=== PATIENT | male | born 1985 | race African-American/Black ===

== ENCOUNTER 2017-11-09 02:53 | Inpatient (IN) ==
[2017-11-09] MEDS ORDERED: Sod Chloride 0.9% Inj 1,000 ML IV.SIG ONE (03:21)
--- NOTE | 2017-11-09 03:29 | ED ---
HPI General Chief complaint: Sickle Cell Stated complaint: Sickle Cell Time Seen by Provider: 11/09/17 03:08 Source: patient Mode of arrival: ambulatory Limitations: no limitations History of Present Illness HPI narrative: Patient is a 32-year-old male with history of sickle cell disease , presents the emergency room with complaints of sickle cell crisis. Patient reports that 6 hours prior to arrival to the emergency room, he began to have back pain, patient reports that his shoulders as well as both arms are achy. Patient tried taking 2 doses of oxycodone as prescribed for her sickle cell crisis, patient reports no relief of symptoms with this. Patient reports that he currently follows with a primary care doctor in [place], he recently moved to [facility] about a month and a half ago, reports that he did follow-up with Dr. Lashay Salgado in the past. Patient denies any chest pain, reports that he is feeling short of breath. Patient with no fever or chills, patient with no other complaints. Patient reports that symptoms today are similar to his typical sickle cell crisis. Patient reports that he is about 2 sickle cell crisis per year Related Data Allergies Allergy/AdvReac Type Severity Reaction Status Date / Time No Known Allergies Allergy Verified 11/09/17 02:57 Review of Systems Except as stated in HPI: all other systems reviewed are negative PMFSH History History Provided By: Patient Medical History Medical History Gout (Acute) Sickle cell anemia (Acute) Surgical History Surgical History Hx of cholecystectomy (Acute) Social History Social History Substance History: No History of Abuse Second Hand Smoke Exposure: No Smoking Status: Never smoker How Often Do You Have a Drink Containing Alcohol: 2 to 4 times a month Recent Travel in [facility] within the Last 8 Weeks: No Recent Out of Country Travel within the Last 8 Weeks: No Exam Narrative Exam Narrative: GENERAL: moderate distress SKIN: Focused skin assessment warm/dry. HEAD: Atraumatic. Normocephalic. EYES: Pupils equal and round. No scleral icterus. No injection or drainage. ENT: No nasal bleeding or discharge. Mucous membranes pink and moist. NECK: Trachea midline. No JVD. CARDIOVASCULAR: tachycardia. No murmur appreciated. RESPIRATORY: No accessory muscle use. Clear to auscultation. Breath sounds equal bilaterally. GASTROINTESTINAL: Abdomen soft, non-tender, nondistended. Hepatic and splenic margins not palpable. MUSCULOSKELETAL: No obvious deformities. No clubbing. No cyanosis. No edema. NEUROLOGICAL: Awake and alert. No obvious cranial nerve deficits. Motor grossly within normal limits. Normal speech. PSYCHIATRIC: Appropriate mood and affect; insight and judgment normal. Course Initial Documented Vital Signs Temperature 99.1 F 11/09/17 02:57 Pulse Rate 118 H 11/09/17 02:57 Respiratory Rate 24 11/09/17 02:57 Blood Pressure 137/63 11/09/17 02:57 Pulse Oximetry 88 L 11/09/17 02:57 Last Documented Vital Signs Temperature 99.1 F 11/09/17 02:57 Pulse Rate 104 H 11/09/17 03:55 Respiratory Rate 24 11/09/17 02:57 Blood Pressure 137/63 11/09/17 02:57 Pulse Oximetry 98 11/09/17 04:42 Critical Care Time Critical Care Time: Yes Total Critical Care Time: 30 Attestation: Aggregate critical care time was 30 minutes. Time to perform other separately billable procedures was not included in the critical care time. My time did not include minutes spent treating any other patients simultaneously or on activities that did not directly contribute to the patient's treatment. The services I provided to this patient were to treat and/or prevent clinically significant deterioration that could result in: , decompensation, detierioation I provided critical care services requiring my management, as noted below: Chart data review, documentation time, medication orders and management, vital sign assessments/reviewing monitor data, ordering and reviewing lab tests, ordering and interpreting/reviewing x-rays and diagnostic studies, care of the patient and discussion of the patient with the admitting physicians. Medical Decision Making MDM Narrative Medical decision making narrative: During the course of the patients emergency department visit, the patients history, examination, and differential diagnosis were reviewed with the patient. The patient was placed on a privacy director with oximetry and frequent blood pressure monitoring. The patient had an IV access obtained and blood work sent for analysis. The patient was initially provided with 2 liters of IVF as well as IV dilaudid patient is tachycardic with a pulse ox of 88% - he was placed on oxygen The patients laboratory studies were reviewed and remarkable for wbc 31,000, patient tachycardic - lactate ordered, he has been pancultured, IV cefepime ordered Patient will require admission to hospital as he is suffering from an acute sickle cell crisis Case reviewed with Dr. Mckeon who accepts pt to service Differential Diagnosis Differential Diagnosis: sickle cell crisis Medical Records Medical records reviewed: Yes I reviewed the patient's medical records. Lab Data Result diagrams: 11/09/17 03:45 11/09/17 03:45 Lab Results 11/09/17 11/09/17 Range/Units 03:45 03:45 WBC 31.0 H (4.0-11.0) th/mm3 RBC 2.76 L (4.50-5.90) mil/mm3 Hgb 8.0 L (13.0-17.0) gm/dL Hct 22.1 L (39.0-51.0) % MCV 79.8 L (80.0-100.0) fL MCH 29.0 (27.0-34.0) pg MCHC 36.3 H (32.0-36.0) % RDW 24.6 H (11.6-17.2) % Plt Count 396 (150-450) th/mm3 MPV 8.6 (7.0-11.0) fL Prelim Diff (Auto) Slide review pending Neut % (Auto) 59.1 (16.0-70.0) % Lymph % (Auto) 27.8 (9.0-44.0) % [place] % (Auto) 7.9 (0.0-8.0) % Eos % (Auto) 3.7 (0.0-4.0) % Baso % (Auto) 1.5 (0.0-2.0) % Neut # (Auto) 18.4 H (1.8-7.7) th/mm3 Lymph # (Auto) 8.6 H (1.0-4.8) th/mm3 [place] # (Auto) 2.5 H (0.0-0.9) th/mm3 Eos # (Auto) 1.1 H (0.0-0.4) th/mm3 Baso # (Auto) 0.5 H (0.0-0.2) th/mm3 Differential Comment . Retic Count 17.0 H (0.4-3.0) % Absolute Retic 469.6 H (20.0-150.0) mil/L Sodium 140 (136-145) meq/L Potassium 4.2 (3.5-5.1) meq/L Chloride 109 H (98-107) meq/L Carbon Dioxide 24.1 (21.0-32.0) meq/L Anion Gap 7 (5-15) meq/L BUN 41 H (7-18) mg/dL Creatinine 1.51 H (0.60-1.30) mg/dL Estimated GFR 53 L (>89) mL/min Random Glucose 102 (74-106) mg/dL Calcium 8.9 (8.5-10.1) mg/dL Total Bilirubin 10.1 H (0.2-1.0) mg/dL AST 63 H (15-37) U/L ALT 37 (12-78) U/L Alkaline Phosphatase 244 H (45-117) U/L Total Protein 8.1 (6.4-8.2) g/dL Albumin 4.2 (3.4-5.0) g/dL Imaging Data Attestation: I personally reviewed and interpreted this imaging study as follows : Radiologist's impression: Chest X-Ray 11/09/17 03:20 CONCLUSION: 1. Low lung volumes. Mild basilar pulmonary opacity may represent vascular crowding, atelectasis, or mild pulmonary edema. 2. Mildly enlarged cardiac silhouette. Discharge Plan Discharge Disposition Patient Disposition: 30 Still Patient Discharge Details Diagnosis: Acute sickle cell crisis Physicians Team ED Provider: Yue Viera Primary Care Provider: Primary Care Emily,No Status ED Status: With Doctor
[2017-11-09] MEDS ORDERED: Sod Chloride 0.9% Inj 1,000 ML IV.SIG SCH (03:30)
[2017-11-09] MEDS ORDERED: HYDROmorphone PF Inj 2 MG/ML Vial IV.PUSH ONE ×2 (03:38→04:49)
[2017-11-09] MEDS: HYDROmorphone PF Inj 1 MG/ML Ampul IV.PUSH ONE ×2 (03:51→03:53)
[2017-11-09 04:08] LABS: Baso # (Auto) 0.5 th/mm3 (0.0-0.2); Baso % (Auto) 1.5 % (0.0-2.0); Eos # (Auto) 1.1 th/mm3 (0.0-0.4); Eos % (Auto) 3.7 % (0.0-4.0); Hematocrit 22.1 % (39.0-51.0); Lymph # (Auto) 8.6 th/mm3 (1.0-4.8); Lymph % (Auto) 27.8 % (9.0-44.0); Mean Corpuscular Volume 79.8 fL (80.0-100.0); Mean Platelet Volume 8.6 fL (7.0-11.0); Mono # (Auto) 2.5 th/mm3 (0.0-0.9); Mono % (Auto) 7.9 % (0.0-8.0); Neut # (Auto) 18.4 th/mm3 (1.8-7.7); Neut % (Auto) 59.1 % (16.0-70.0); Platelet Count 396 th/mm3 (150-450); Red Blood Count 2.76 mil/mm3 (4.50-5.90); Red Cell Distribution Width 24.6 % (11.6-17.2)
[2017-11-09 04:15] LABS: Mean Corpuscular HGB Conc 36.3 % (32.0-36.0)
[2017-11-09 04:20] LABS: Alanine Aminotransferase 37 U/L (12-78); Albumin 4.2 g/dL (3.4-5.0); Anion Gap 7 meq/L (5-15); Aspartate Aminotransferase 63 U/L (15-37); Blood Urea Nitrogen 41 mg/dL (7-18); Calcium 8.9 mg/dL (8.5-10.1); Carbon Dioxide 24.1 meq/L (21.0-32.0); Chloride 109 meq/L (98-107); Glomerular Filtration Rate 53 mL/min (>89); Glucose,Random 102 mg/dL (74-106); Potassium 4.2 meq/L (3.5-5.1); Sodium 140 meq/L (136-145)
[2017-11-09 04:22] LABS: Alkaline Phosphatase 244 U/L (45-117); Total Protein 8.1 g/dL (6.4-8.2)
--- NOTE | 2017-11-09 04:24 | XR ---
EXAM DATE: 11/09/2017 4:12 AM EDT AGE/SEX: 32 years / Male INDICATIONS: Shortness of breath. CLINICAL DATA: This is the patient's initial encounter. Patient reports that signs and symptoms have been present for 1 day and indicates a pain score of 0/10. MEDICAL/SURGICAL HISTORY: Sickle Cell disease. None. COMPARISON: No prior exams available for comparison. FINDINGS: Single AP view of the chest. Lung volumes are low. Mild hazy opacity at the lung bases. No evidence o f pleural effusion or pneumothorax. Cardiac silhouette is mildly prominent. CONCLUSION: 1. Low lung volumes. Mild basilar pulmonary opacity may represent vascular crowding, atelectasis, or mild pulmonary edema. 2. Mildly enlarged cardiac silhouette. Electronically signed by: Chidi Perry MD 11/09/2017 4:23 AM EDT
[2017-11-09] MEDS ORDERED: Acetaminophen 325 MG Tablet PO ONE (04:49)
[2017-11-09] MEDS ORDERED: HYDROmorphone PF Inj 2 MG/ML Vial IV.PUSH PRN (05:03)
[2017-11-09] MEDS ORDERED: Temazepam 15 MG Capsule PO PRN (05:04)
[2017-11-09] MEDS ORDERED: Bisacodyl 10 MG Supp RECTAL PRN (05:04)
[2017-11-09] MEDS ORDERED: Acetaminophen 325 MG Tablet PO PRN (05:04)
[2017-11-09 05:08] LABS: Eosinophils 3 % (0-4); Lymphocytes 26 % (9-44); Monocytes 6 % (0-8); Myelocytes 1 % (0-0); Tallied Nucleated RBC 5 (0-0)
[2017-11-09 05:11] LABS: Pappenheimer Bodies Present; Platelet Estimate Normal (Normal); Sickle Cells 1+; Target Cells 1+
[2017-11-09 05:12] LABS: Polychromasia 9.5 % (0.0-1.9)
[2017-11-09 05:13] LABS: Platelet Morphology Normal (Normal)
[2017-11-09 05:58] LABS: Bilirubin,Urine Negative (Negative); Clarity,Urine Clear (Clear); Color,Urine Yellow (Yellw/Straw); Glucose,Urine (UA) Negative (Negative); Leukocyte Esterase,Urine Negative (Negative); Mucus,Urine Few /lpf (Occasional); Nitrite,Urine Negative (Negative); Specific Gravity,Urine 1.006 (1.002-1.035)
[2017-11-09] MEDS: Sod Chloride 0.9% Inj 1,000 ML IV.CONT SCH ×3 (08:38→22:38)
[2017-11-09] MEDS: Senna/Docusate Sodium 8.6/50 MG Tablet PO SCH ×2 (08:40→21:07)
[2017-11-09] MEDS: Folic Acid 1 MG Tablet PO SCH (08:40)
[2017-11-09] MEDS: HYDROmorphone PF Inj 2 MG/ML Vial IV.PUSH PRN ×6 (08:43→21:06)
[2017-11-09 14:03] LABS: Amphetamine Screen,Urine Neg (Neg); Barbiturate Screen,Urine Neg (Neg); Cannabinoid Screen,Urine Neg (Neg); Cocaine Screen,Urine Neg (Neg)
[2017-11-09 14:05] LABS: Opiate Screen,Urine Neg (Neg)
[2017-11-09] MEDS: Azithromycin Inj 500 MG in Sodium Chlor 0.9% Inj 250 ML IV.SIG SCH (15:30)
--- NOTE | 2017-11-09 16:21 | P.HPIM ---
History of Present Illness Primary Care Physician: No Primary Care Physician History of Present Illness: 32-year-old male with a history of sickle cell anemia, gout who presents with a 1 day history of constant sharp pain in back, bilateral shoulders, bilateral legs. He says he began having fevers yesterday around 6 PM. Denies any sore throat, denies any cough. He does report moderate shortness of breath which has improved since admission. Reports pain continues, however has not worsened. Inpatient Certification: I certify that the inpatient services were ordered in accordance with Medicare regulations governing the order. This includes certification that hospital inpatient services are reasonable and necessary and in the case of services not specified as inpatient-only under 42 CFR 419.22(n), that they are appropriately provided as inpatient services in accordance to with the 2-midnight benchmark under 43 CFR 412.3(e) Estimated Total Length of Stay (Days): 2 Plans for Post Hospital Care: Not yet determined Review of Systems All other systems reviewed negative except as stated in [facility] - History History Provided By: Patient - Medical History Medical History: Medical History (Last Updated 11/09/17 @ 03:55 by Truman Oliva RN) Gout Sickle cell anemia - Surgical History Surgical History: Surgical History (Last Reviewed 11/09/17 @ 03:27 by Yue Viera) Hx of cholecystectomy - Family History Family History: Family History (Last Updated 11/09/17 @ 16:12 by Subhash Hillman MD) Father Gout - Tobacco History Second Hand Smoke Exposure: No Smoking Status: Never smoker - Alcohol History How Often Do You Have a Drink Containing Alcohol: 2 to 4 times a month - Substance Use History Substance History: No History of Abuse - Travel History Recent Travel in the [place] Within the Last 8 Weeks: No Recent Travel Out of the Country Within the Last 8 Weeks: No - Immunization History Tetanus Immunization: Unsure Hx Influenza Vaccine This Season: No Medications and Allergies Active Medications: Active Medications Acetaminophen (Tylenol) 650 mg PO Q4H PRN PRN Reason: Temp > 100.4 Al Hydroxide/Mg Hydroxide (Milk Of Magnpaul Liq) 30 ml PO Q12H PRN PRN Reason: Mild Constipation Albuterol (Duoneb Neb (Prn)) 1 ampul NEB Q2HR NEB PRN PRN Reason: SHORTNESS OF BREATH/WHEEZING Albuterol (Duoneb Neb (Leia)) 1 ampul NEB Q6HR NEB [facility] Bisacodyl (Dulcolax Supp) 10 mg RECTAL DAILY PRN PRN Reason: SEVERE CONSITIPATION Diphenhydramine HCl (Benadryl Inj) 25 mg IV.PUSH Q6H PRN PRN Reason: ITCHING Folic Acid (Folic Acid) 1 mg PO DAILY [facility] Last Admin: 11/09/17 08:40 Dose: 1 mg Hydromorphone HCl (Dilaudid Pf Inj) 1 mg IV.PUSH Q2H PRN PRN Reason: PAIN 3-5 Hydromorphone HCl (Dilaudid Pf Inj) 2 mg IV.PUSH Q2H PRN PRN Reason: PAIN 6-10 Last Admin: 11/09/17 15:19 Dose: 2 mg Sodium Chloride (Ns Inj) 1,000 mls @ 150 mls/hr IV.CONT .Q6H40M [facility] Last Admin: 11/09/17 15:20 Dose: 150 mls/hr Azithromycin 500 mg/ Sodium (Chloride) 250 mls @ 250 mls/hr IV.SIG Q24H [facility] Last Admin: 11/09/17 15:30 Dose: 250 mls/hr Cefepime HCl 2,000 mg/ Sodium (Chloride) 100 mls @ 200 mls/hr IV.SIG Q12H [facility] Lactulose (Lactulose Liq) 30 ml PO DAILY PRN PRN Reason: SEVERE CONSITIPATION Ondansetron HCl (Zofran Inj) 4 mg IV.PUSH Q6H PRN PRN Reason: NAUSEA OR VOMITING Senna/Docusate Sodium (Latrice-Colace) 1 tab PO BID [facility] Last Admin: 11/09/17 08:40 Dose: Not Given Sennosides (Senokot) 17.2 mg PO Q12H PRN PRN Reason: Moderate Constipation Sodium Chloride (Ns Flush) 2 ml IV.FLUSH PRN PRN PRN Reason: FLUSH AFTER USING IV ACCESS Temazepam (Restoril) 15 mg PO HS PRN PRN Reason: INSOMNIA Allergies Allergy/AdvReac Type Severity Reaction Status Date / Time No Known Allergies Allergy Verified 11/09/17 02:57 Exam Vital signs: Vital Signs 11/09/17 02:57 11/09/17 03:55 11/09/17 04:42 Temperature 99.1 F Pulse Rate 118 H 104 H Respiratory Rate 24 Blood Pressure 137/63 Pulse Oximetry 88 L 97 98 11/09/17 05:15 11/09/17 05:26 11/09/17 05:27 Temperature 100.2 F H Pulse Rate 95 H 95 H Respiratory Rate 18 20 Blood Pressure 129/64 Pulse Oximetry 96 11/09/17 06:00 11/09/17 06:17 11/09/17 07:42 Temperature 100.1 F H Pulse Rate 80 89 81 Respiratory Rate 17 Blood Pressure 112/58 L Pulse Oximetry 97 11/09/17 08:00 11/09/17 09:00 11/09/17 10:00 Temperature 99.9 F H Pulse Rate 84 86 84 Respiratory Rate 18 Blood Pressure 106/63 Pulse Oximetry 99 11/09/17 11:00 11/09/17 12:00 11/09/17 13:00 Temperature 98.6 F Pulse Rate 86 82 82 Respiratory Rate 18 Blood Pressure 104/62 Pulse Oximetry 95 11/09/17 14:00 11/09/17 15:00 Temperature Pulse Rate 88 90 Respiratory Rate Blood Pressure Pulse Oximetry Intake & Output 11/08/17 11/09/17 11/09/17 18:59 06:59 18:59 Intake Total 1000 / 1000 Balance 1000 / 1000 Weight 63 kg Intake: IV 1000 / 1000 NS Inj 1,000 ML @ 150 mls/hr IV 1000 / 1000 .CONT .Q6H40M [facility] Rx#:[id number] Narrative: GENERAL: Patient sitting up in bed. appears comfortable. SKIN: Warm and dry. HEAD: Atraumatic. Normocephalic. EYES: Pupils equal and round. No scleral icterus. No injection or drainage. ENT: No nasal bleeding or discharge. Mucous membranes pink and moist. NECK: Trachea midline. No JVD. CARDIOVASCULAR: Regular rate and rhythm. RESPIRATORY: No accessory muscle use. Clear to auscultation. Breath sounds equal bilaterally. GASTROINTESTINAL: Abdomen soft, non-tender, nondistended. Hepatic and splenic margins not palpable. MUSCULOSKELETAL: Extremities without clubbing, cyanosis, or edema. No obvious deformities. NEUROLOGICAL: Awake and alert. No obvious cranial nerve deficits. Motor grossly within normal limits. Five out of 5 muscle strength in the arms and legs. Normal speech. PSYCHIATRIC: Appropriate mood and affect; insight and judgment normal. Results - Labs CBC & Chem 7: 11/09/17 03:45 07/22/18 03:45 Labs: Short CBC 11/09/17 Range/Units 03:45 WBC 31.0 H (4.0-11.0) th/mm3 Hgb 8.0 L (13.0-17.0) gm/dL Hct 22.1 L (39.0-51.0) % Plt Count 396 (150-450) th/mm3 BMP 11/09/17 03:45 Sodium 140 Potassium 4.2 Chloride 109 H Carbon Dioxide 24.1 BUN 41 H Creatinine 1.51 H Calcium 8.9 Liver Function 11/09/17 Range/Units 03:45 Total Bilirubin 10.1 H (0.2-1.0) mg/dL AST 63 H (15-37) U/L ALT 37 (12-78) U/L Alkaline Phosphatase 244 H (45-117) U/L Albumin 4.2 (3.4-5.0) g/dL Urine 11/09/17 Range/Units 05:32 Urine Color Yellow (Yellw/Straw) Urine Clarity Clear (Clear) Urine pH 5.0 (5.0-8.5) Ur Specific [place] 1.006 (1.002-1.035) Urine Protein 100 H (Neg-Trace) mg/dL Urine Glucose (UA) Negative (Negative) mg/dL - Imaging Impressions Chest X-Ray 11/09/17 03:20 CONCLUSION: 1. Low lung volumes. Mild basilar pulmonary opacity may represent vascular crowding, atelectasis, or mild pulmonary edema. 2. Mildly enlarged cardiac silhouette. Caprini VTE Risk Assessment Caprini VTE Risk Assessment: No/Low Risk (score <= 1) Caprini Risk Assessment Model: Point Value = 1 Point Value = 2 Point Value = 3 Point Value = 5 Age 41-60 Minor surgery BMI > 25 kg/m2 Swollen legs Varicose veins or History of unexplained or recurrent spontaneous Oral contraceptives or hormone replacement Sepsis (< 1 month) Serious lung disease, including pneumonia (< 1 month) Abnormal pulmonary function Acute myocardial infarction Congestive heart failure (< 1 month) History of inflammatory bowel disease Medical patient at bed rest Age 61-74 Arthroscopic surgery Major open surgery (> 45 min) Laparoscopic surgery (> 45 min) Malignancy Confined to bed (> 72 hours) Immobilizing plaster cast Central venous access Age >= 75 History of VTE Family history of VTE Factor V Leiden Prothrombin [id number] Lupus anticoagulant Anticardiolipin antibodies Elevated serum homocysteine Heparin-induced thrombocytopenia Other congenital or acquired thrombophilia Stroke (< 1 month) Elective arthroplasty Hip, pelvis, or leg fracture Acute spinal cord injury (< 1 month) Prophylaxis Regimen: Total Risk Factor Score Risk Level Prophylaxis Regimen 0-1 Low Early ambulation 2 Moderate Order ONE of the following: *Sequential Compression Device (SCD) *Heparin 5000 units SQ BID 3-4 Higher Order ONE of the following medications: *Heparin 5000 units SQ TID *Enoxaparin/Lovenox 40 mg SQ daily (WT < 150 kg, CrCl > 30 mL/min) *Enoxaparin/Lovenox 30 mg SQ daily (WT < 150 kg, CrCl > 10-29 mL/min) *Enoxaparin/Lovenox 30 mg SQ BID (WT < 150 kg, CrCl > 30 mL/min) AND/OR *Sequential Compression Device (SCD) 5 or more Highest Order ONE of the following medications: *Heparin 5000 units SQ TID (Preferred with Epidurals) *Enoxaparin/Lovenox 40 mg SQ daily (WT < 150 kg, CrCl > 30 mL/min) *Enoxaparin/Lovenox 30 mg SQ daily (WT < 150 kg, CrCl > 10-29 mL/min) *Enoxaparin/Lovenox 30 mg SQ BID (WT < 150 kg, CrCl > 30 mL/min) AND *Sequential Compression Device (SCD) Assessment and Plan - Plan //Sepsis on admission //Hypoxemic respiratory failure = Leukocytosis of 31, tachypnea, hypoxemia with pulse oximetry 88% on room air, currently requiring 5 L nasal cannula. Pneumonia on chest x-ray IV fluids. Broad-spectrum antibiotics for pneumonia. Continue to monitor. 3 per discussion with patient, will consult Dr. Salgado,. //Sickle cell pain crisis With pain and back, bilateral legs. Denies chest pain. = We will check CK Narcotics as needed. //Impaired renal function. Creatinine 1.5. Continue IV fluids. Continue to monitor.
[2017-11-10] MEDS: HYDROmorphone PF Inj 2 MG/ML Vial IV.PUSH PRN ×10 (00:21→22:26)
[2017-11-10 04:23] LABS: Baso # (Auto) 0.2 th/mm3 (0.0-0.2); Baso % (Auto) 1.5 % (0.0-2.0); Eos # (Auto) 0.9 th/mm3 (0.0-0.4); Eos % (Auto) 6.1 % (0.0-4.0); Lymph # (Auto) 4.3 th/mm3 (1.0-4.8); Lymph % (Auto) 28.2 % (9.0-44.0); Mean Corpuscular Hemoglobin 30.1 pg (27.0-34.0); Mean Corpuscular Volume 82.1 fL (80.0-100.0); Mean Platelet Volume 8.6 fL (7.0-11.0); Mono # (Auto) 1.8 th/mm3 (0.0-0.9); Mono % (Auto) 11.6 % (0.0-8.0); Neut % (Auto) 52.6 % (16.0-70.0); Platelet Count 327 th/mm3 (150-450); Red Cell Distribution Width 24.2 % (11.6-17.2); White Blood Count 15.2 th/mm3 (4.0-11.0)
[2017-11-10 04:29] LABS: Mean Corpuscular HGB Conc 36.6 % (32.0-36.0)
[2017-11-10 04:33] LABS: Hemoglobin 6.9 gm/dL (13.0-17.0)
[2017-11-10 04:34] LABS: Hematocrit 18.9 % (39.0-51.0)
[2017-11-10 04:40] LABS: Alanine Aminotransferase 32 U/L (12-78); Albumin 3.6 g/dL (3.4-5.0); Alkaline Phosphatase 208 U/L (45-117); Anion Gap 5 meq/L (5-15); Aspartate Aminotransferase 55 U/L (15-37); Blood Urea Nitrogen 23 mg/dL (7-18); Calcium 8.5 mg/dL (8.5-10.1); Carbon Dioxide 25.2 meq/L (21.0-32.0); Chloride 115 meq/L (98-107); Glomerular Filtration Rate 87 mL/min (>89); Glucose,Random 97 mg/dL (74-106); Potassium 5.2 meq/L (3.5-5.1); Sodium 145 meq/L (136-145)
[2017-11-10 06:02] LABS: Eosinophils 10 % (0-4); Howell-Jolly Bodies Present; Lymphocytes 24 % (9-44); Monocytes 10 % (0-8); Pappenheimer Bodies Present; Sickle Cells 2+; Tallied Nucleated RBC 4 (0-0)
[2017-11-10 06:03] LABS: Platelet Estimate Normal (Normal)
[2017-11-10 06:04] LABS: Polychromasia 2.3 % (0.0-1.9)
[2017-11-10] MEDS: Sod Chloride 0.9% Inj 1,000 ML IV.CONT SCH ×4 (07:07→20:20)
--- NOTE | 2017-11-10 08:29 | P.PNIM ---
Subjective Interval history: Patient says he is feeling a little better than yesterday. Denies any chest pain. Denies shortness of breath. Reports pain is slightly improved. Physical Exam Vital signs: Vital Signs 11/09/17 09:00 11/09/17 10:00 11/09/17 11:00 Temperature Pulse Rate 86 84 86 Respiratory Rate Blood Pressure Pulse Oximetry 11/09/17 12:00 11/09/17 13:00 11/09/17 14:00 Temperature 98.6 F Pulse Rate 82 82 88 Respiratory Rate 18 Blood Pressure 104/62 Pulse Oximetry 95 11/09/17 15:00 11/09/17 16:00 11/09/17 16:06 Temperature 99.8 F H Pulse Rate 90 88 Respiratory Rate 18 Blood Pressure 112/56 L Pulse Oximetry 96 95 11/09/17 17:00 11/09/17 18:00 11/09/17 19:00 Temperature Pulse Rate 96 H 92 H 64 Respiratory Rate Blood Pressure Pulse Oximetry 11/09/17 20:00 11/09/17 21:00 11/09/17 22:00 Temperature 97.4 F L Pulse Rate 64 70 67 Respiratory Rate 16 Blood Pressure 106/58 L Pulse Oximetry 92 L 11/09/17 23:00 11/10/17 00:00 11/10/17 00:02 Temperature 98.2 F Pulse Rate 68 62 62 Respiratory Rate 18 Blood Pressure 131/69 Pulse Oximetry 98 11/10/17 01:00 11/10/17 02:00 11/10/17 03:00 Temperature Pulse Rate 85 88 79 Respiratory Rate Blood Pressure Pulse Oximetry 11/10/17 03:28 11/10/17 04:00 11/10/17 05:00 Temperature 99.0 F Pulse Rate 81 78 82 Respiratory Rate 16 16 Blood Pressure 135/62 Pulse Oximetry 98 11/10/17 06:00 11/10/17 08:23 Temperature Pulse Rate 79 Respiratory Rate 16 Blood Pressure Pulse Oximetry Intake & Output 11/09/17 11/10/17 11/10/17 18:59 06:59 18:59 Intake Total 2049 1240 / 1240 3450 / 3450 Output Total 5 / 2225 2024 Balance -175 / -175 -785 / -785 3450 / 3450 Weight 65 kg Intake: IV 1100 / 1100 1000 / 1000 3450 / 3450 NS Inj 1,000 ML @ 150 mls/hr IV 1000 / 1000 1000 / 1000 1000 / 1000 .CONT .Q6H40M [facility] Rx#:[id number] Azithromycin Inj 500 MG In NS 250 / 250 Inj 250 ML @ 250 mls/hr IV.SIG Q24H [facility] Rx#:[id number] Maxipime Inj 2,000 MG In NS Inj 100 / 100 100 / 100 100 ML @ 200 mls/hr IV.SIG Q12H [facility] Rx#:[id number] Oral 950 / 950 240 / 240 Output: Urine 2225 / 2225 2024 / 2024 Other: # Bowel Movements 0 Narrative: GENERAL: Patient sitting up in bed. Appears comfortable. Alert and oriented 3. SKIN: Warm and dry. HEAD: Normocephalic. EYES: No scleral icterus. No injection or drainage. NECK: Supple, trachea midline. No JVD. CARDIOVASCULAR: Regular rate and rhythm without murmurs, gallops, or rubs. RESPIRATORY: Breath sounds equal bilaterally. No accessory muscle use. GASTROINTESTINAL: Abdomen soft, non-tender, nondistended. MUSCULOSKELETAL: No cyanosis, or edema. BACK: Nontender without obvious deformity. No CVA tenderness. Results - Labs CBC & Chem 7: 11/10/17 03:38 11/10/17 03:38 Laboratory Results - last 24 hr 11/09/17 11/09/17 11/10/17 03:45 05:32 03:38 WBC 15.2 H D RBC 2.30 L Hgb 6.9 L* Hct 18.9 L* MCV 82.1 MCH 30.1 MCHC 36.6 H RDW 24.2 H Plt Count 327 MPV 8.6 Prelim Diff (Auto) Slide review pending Neut % (Auto) 52.6 Lymph % (Auto) 28.2 [place] % (Auto) 11.6 H Eos % (Auto) 6.1 H Baso % (Auto) 1.5 Neut # (Auto) 8.0 H Lymph # (Auto) 4.3 [place] # (Auto) 1.8 H Eos # (Auto) 0.9 H Baso # (Auto) 0.2 WBC Differential Manual diff final Seg Neuts % (Manual) 53 Band Neuts % (Manual) 3 Lymphocytes % (Manual) 24 Monocytes % (Manual) 10 H Eosinophils % (Manual) 10 H Abs Neuts (Manual) 8.5 H Nucleated RBCs/100 WBC 4 H Differential Comment . Platelet Estimate Normal Platelet Morphology Enlarged H Polychromasia 2.3 H Pappenheimer Bodies Present H Sickle Cells 2+ H [place] Bodies Present H Sodium Potassium Chloride Carbon Dioxide Anion Gap BUN Creatinine Estimated GFR Random Glucose Calcium Total Bilirubin AST ALT Alkaline Phosphatase Total Creatine Kinase 82 Total Protein Albumin Urine Opiates Screen Neg Ur Barbiturates Screen Neg Ur Amphetamines Screen Neg U Benzodiazepines Scrn Neg Urine Cocaine Screen Neg U Cannabinoids Screen Neg 11/10/17 03:38 WBC RBC Hgb Hct MCV MCH MCHC RDW Plt Count MPV Prelim Diff (Auto) Neut % (Auto) Lymph % (Auto) [place] % (Auto) Eos % (Auto) Baso % (Auto) Neut # (Auto) Lymph # (Auto) [place] # (Auto) Eos # (Auto) Baso # (Auto) WBC Differential Seg Neuts % (Manual) Band Neuts % (Manual) Lymphocytes % (Manual) Monocytes % (Manual) Eosinophils % (Manual) Abs Neuts (Manual) Nucleated RBCs/100 WBC Differential Comment Platelet Estimate Platelet Morphology Polychromasia Pappenheimer Bodies Sickle Cells [place] Bodies Sodium 145 Potassium 5.2 H D Chloride 115 H Carbon Dioxide 25.2 Anion Gap 5 BUN 23 H Creatinine 0.99 Estimated GFR 87 L Random Glucose 97 Calcium 8.5 Total Bilirubin 5.9 H AST 55 H ALT 32 Alkaline Phosphatase 208 H Total Creatine Kinase Total Protein 7.0 D Albumin 3.6 D Urine Opiates Screen Ur Barbiturates Screen Ur Amphetamines Screen U Benzodiazepines Scrn Urine Cocaine Screen U Cannabinoids Screen Assessment and Plan - Plan //Sepsis on admission //Hypoxemic respiratory failure = Leukocytosis of 31, tachypnea, hypoxemia with pulse oximetry 88% on room air, currently requiring 5 L nasal cannula. Pneumonia on chest x-ray IV fluids. Broad-spectrum antibiotics for pneumonia. Continue to monitor. 3 per discussion with patient, will consult Dr. Salgado,. = 11/10. White blood cell count improving. Continue broad-spectrum antibiotics. //Sickle cell pain crisis With pain and back, bilateral legs. Denies chest pain. = We will check CK Narcotics as needed. = Anemia to be replaced as below. Continue oxygen. Continue to monitor //Acute on chronic anemia Hemoglobin 6.9 this morning. Bilirubin appears to be decreasing however. = We will transfuse 2 units. Hematology consult. //Impaired renal function. Creatinine 1.5. Continue IV fluids. Continue to monitor. Discharge Planning: Discharge pain is controlled, and when cleared by hematology.
[2017-11-10] MEDS: Folic Acid 1 MG Tablet PO SCH (08:53)
[2017-11-10] MEDS: Senna/Docusate Sodium 8.6/50 MG Tablet PO SCH ×2 (08:53→20:20)
[2017-11-10] MEDS ORDERED: Sodium Chlor 0.9% Inj 250 ML IV.SIG SCH (09:00)
[2017-11-10] MEDS: Azithromycin Inj 500 MG in Sodium Chlor 0.9% Inj 250 ML IV.SIG SCH (15:11)
--- NOTE | 2017-11-10 19:48 | MB ---
cc: Lashay Salgado MD,Subhash English MD DATE: 11/10/2017 REFERRING PHYSICIAN: Subhash Hillman CHIEF COMPLAINT: Dr. Hillman requests a consultation for Mr. Vargas regarding sickle cell disease. HISTORY OF PRESENT ILLNESS: Mr. Vargas is a 32-year-old man originally from [place]. He has a [place] citizenship and, therefore, I have changed his name. I cannot find his previous records at our [facility] or [facility]. He is a well known patient to me with a history of sickle cell disease and exacerbations of priapism. He was on Viagra for treatment of his priapism, which unfortunately precipitated sickle cell disease. He has made some observation through the years, since 2010, that his hydroxyurea precipitates his priapism. He has been under the care of his physicians in [place] and [facility]. He came back to the [place] in 2014. He was in [place] and was treated at [facility] there. He has returned to finish his studies at [employer]. He was doing well until precipitation of his sickle cell symptoms requiring him to come into the hospital. He reports having severe back pain and shoulder pain. He has required transfusions periodically once or twice a year. He has infrequent hospitalization. He does not have pains in between. He denies any precipitating event. His studies are going well. He denies any fevers, chills or night sweats. He denies any recent exacerbation of his priapism. After stopping his hydroxyurea dose, events have remitted. PAST MEDICAL HISTORY: Sickle cell disease, gout, chronic anemia, priapism. PAST SURGICAL HISTORY: Cholecystectomy. SOCIAL HISTORY: Denies any tobacco, alcohol or illicit drug use. He is a student at [employer]. FAMILY HISTORY: Significant for family history of sickle trait. No family history of cancer. PHYSICAL EXAMINATION: VITAL SIGNS: Temperature 98.7, heart rate 82, respiratory rate 16, blood pressure 113/58, saturation 97%. GENERAL: Mr. Vargas is a slender, well-developed, well mannered man, with no acute distress. HEENT: His pupils are round, reactive to light and accommodation. Oropharynx is clear. NECK: Supple. LUNGS: Clear to auscultation. CARDIOVASCULAR: Reveals normal rate and rhythm. ABDOMEN: Benign. LOWER EXTREMITY: With good pulses. There is mild swelling in the dorsum of the left foot. R knee effusion. SKIN: He is jaundiced with bilirubin of 5.9. LABORATORY DATA: White blood cell count of 15.2, hemoglobin 6.9, platelet count 327. Reticulocyte count is elevated. Normal sodium. Potassium is slightly increased, BUN of 23, creatinine 0.99, bilirubin 5.9, which is decreased from his admission. ASSESSMENT AND PLAN: Mr. Vargas is a 32-year-old man with history of sickle cell disease and infrequent hospitalizations for his sickle cell. He is off hydroxyurea, as he observed the Hydrea precipitates his priapism. He is tolerating his blood transfusion well. I concur with the primary team for transfusion in light of his severe decrease in hemoglobin of 6.9. We will continue to monitor his blood counts. He has a good reticulocytosis. I anticipate that his symptoms would improve. P.r.n. pain medication is ordered. Supportive care with hydration, oxygen is provided. He will need followup on an outpatient basis. We will contact IT to help merge his records from previous. Mr. Vargas's questions were answered to his satisfaction. MD ANALI Flaherty/AMBROCIO , 07:12 PM , 07:46 PM KATHY
--- NOTE | 2017-11-10 21:20 | P.PN ---
Subjective Interval history: F/U [facility] Physical Exam Vital signs: Vital Signs 11/09/17 22:00 11/09/17 23:00 11/10/17 00:00 Temperature 98.2 F Pulse Rate 67 68 62 Respiratory Rate 18 Blood Pressure 131/69 Pulse Oximetry 98 11/10/17 00:02 11/10/17 01:00 11/10/17 02:00 Temperature Pulse Rate 62 85 88 Respiratory Rate Blood Pressure Pulse Oximetry 11/10/17 03:00 11/10/17 03:28 11/10/17 04:00 Temperature 99.0 F Pulse Rate 79 81 78 Respiratory Rate 16 16 Blood Pressure 135/62 Pulse Oximetry 98 11/10/17 05:00 11/10/17 06:00 11/10/17 08:00 Temperature 98.0 F Pulse Rate 82 79 72 Respiratory Rate 16 Blood Pressure 118/58 L Pulse Oximetry 93 L 11/10/17 08:23 11/10/17 09:00 11/10/17 09:15 Temperature Pulse Rate 84 77 Respiratory Rate 16 18 Blood Pressure Pulse Oximetry 93 L 11/10/17 09:45 11/10/17 10:40 11/10/17 10:42 Temperature 99.5 F Pulse Rate 74 78 Respiratory Rate 16 16 Blood Pressure 132/67 Pulse Oximetry 95 11/10/17 12:00 11/10/17 12:08 11/10/17 12:12 Temperature 98.6 F 98.5 F Pulse Rate 79 78 84 Respiratory Rate 16 16 Blood Pressure 121/64 120/62 Pulse Oximetry 93 L 93 L 11/10/17 12:29 11/10/17 13:00 11/10/17 13:52 Temperature Pulse Rate 81 75 Respiratory Rate 16 Blood Pressure Pulse Oximetry 11/10/17 14:39 11/10/17 14:44 11/10/17 15:32 Temperature 99.2 F Pulse Rate 77 94 H Respiratory Rate 16 16 Blood Pressure 122/66 Pulse Oximetry 96 11/10/17 16:49 11/10/17 16:50 11/10/17 17:18 Temperature 98.7 F Pulse Rate 90 82 Respiratory Rate 16 16 Blood Pressure 113/58 L Pulse Oximetry 97 11/10/17 17:30 11/10/17 17:40 11/10/17 20:16 Temperature 98.6 F Pulse Rate 79 81 86 Respiratory Rate 16 16 Blood Pressure 108/55 L Pulse Oximetry 93 L Intake & Output 11/10/17 11/10/17 11/11/17 06:59 18:59 06:59 Intake Total 1240 / 1240 5640 / 5640 1000 / 1000 Output Total 2024 2800 / 2800 Balance -785 / -785 2840 / 2840 1000 / 1000 Weight 65 kg Intake: IV 1000 / 1000 4800 / 4800 1000 / 1000 NS Inj 1,000 ML @ 150 mls/hr IV 1000 / 1000 2000 / 2000 1000 / 1000 .CONT .Q6H40M EMILIANO Rx#:[id number] Azithromycin Inj 500 MG In NS 500 / 500 Inj 250 ML @ 250 mls/hr IV.SIG Q24H EMILIANO Rx#:[id number] Maxipime Inj 2,000 MG In NS Inj 200 / 200 100 ML @ 200 mls/hr IV.SIG Q12H EMILIANO Rx#:[id number] Oral 240 / 240 840 / 840 Intake (Blood Product) Amt 0 / 0 0 / 0 Rbc As-3 Leukoreduced Unit 0 / 0 0 / 0 [id number] Rbc As-5 Leukoreduced Unit 0 / 0 [id number] Output: Urine 2024 2800 / 2800 Other: Date of Last Bowel Movement 11/09/17 # Bowel Movements 0 Narrative: GENERAL: Patient sitting up in bed. Appears comfortable. Alert and oriented 3. SKIN: Warm and dry. CARDIOVASCULAR: Regular rate and rhythm without murmurs, gallops, or rubs. RESPIRATORY: Breath sounds equal bilaterally. No accessory muscle use. GASTROINTESTINAL: Abdomen soft, non-tender, nondistended. MUSCULOSKELETAL: No cyanosis, or edema. BACK: Nontender without obvious deformity. No CVA tenderness. Results - Labs CBC & Chem 7: 11/10/17 03:38 11/10/17 03:38 Laboratory Results - last 24 hr 11/10/17 11/10/17 11/10/17 03:38 03:38 10:25 WBC 15.2 H D RBC 2.30 L Hgb 6.9 L* Hct 18.9 L* MCV 82.1 MCH 30.1 MCHC 36.6 H RDW 24.2 H Plt Count 327 MPV 8.6 Prelim Diff (Auto) Slide review pending Neut % (Auto) 52.6 Lymph % (Auto) 28.2 [place] % (Auto) 11.6 H Eos % (Auto) 6.1 H Baso % (Auto) 1.5 Neut # (Auto) 8.0 H Lymph # (Auto) 4.3 [place] # (Auto) 1.8 H Eos # (Auto) 0.9 H Baso # (Auto) 0.2 WBC Differential Manual diff final Seg Neuts % (Manual) 53 Band Neuts % (Manual) 3 Lymphocytes % (Manual) 24 Monocytes % (Manual) 10 H Eosinophils % (Manual) 10 H Abs Neuts (Manual) 8.5 H Nucleated RBCs/100 WBC 4 H Differential Comment . Platelet Estimate Normal Platelet Morphology Enlarged H Polychromasia 2.3 H Pappenheimer Bodies Present H Sickle Cells 2+ H Chavarria-Shickley Bodies Present H Sodium 145 Potassium 5.2 H D Chloride 115 H Carbon Dioxide 25.2 Anion Gap 5 BUN 23 H Creatinine 0.99 Estimated GFR 87 L Random Glucose 97 Calcium 8.5 Total Bilirubin 5.9 H AST 55 H ALT 32 Alkaline Phosphatase 208 H Total Protein 7.0 D Albumin 3.6 D Blood Type O Positive Antibody Screen Negative MTS Gel Crossmatch Bld Prod Order Comment 11/10/17 10:25 WBC RBC Hgb Hct MCV MCH MCHC RDW Plt Count MPV Prelim Diff (Auto) Neut % (Auto) Lymph % (Auto) [place] % (Auto) Eos % (Auto) Baso % (Auto) Neut # (Auto) Lymph # (Auto) [place] # (Auto) Eos # (Auto) Baso # (Auto) WBC Differential Seg Neuts % (Manual) Band Neuts % (Manual) Lymphocytes % (Manual) Monocytes % (Manual) Eosinophils % (Manual) Abs Neuts (Manual) Nucleated RBCs/100 WBC Differential Comment Platelet Estimate Platelet Morphology Polychromasia Pappenheimer Bodies Sickle Cells Chavarria-Shickley Bodies Sodium Potassium Chloride Carbon Dioxide Anion Gap BUN Creatinine Estimated GFR Random Glucose Calcium Total Bilirubin AST ALT Alkaline Phosphatase Total Protein Albumin Blood Type Antibody Screen MTS Gel Crossmatch See Detail Bld Prod Order Comment Microbiology 11/09/17 04:50 Blood - Peripheral Aerobic Blood Culture - Preliminary No growth in 1 day 11/09/17 04:50 Blood - Peripheral Anaerobic Blood Culture - Preliminary No growth in 1 day 11/09/17 05:00 Blood - Peripheral Aerobic Blood Culture - Preliminary No growth in 1 day 11/09/17 05:00 Blood - Peripheral Anaerobic Blood Culture - Preliminary No growth in 1 day - Imaging ITS Impressions Chest X-Ray 11/09/17 03:20 CONCLUSION: 1. Low lung volumes. Mild basilar pulmonary opacity may represent vascular crowding, atelectasis, or mild pulmonary edema. 2. Mildly enlarged cardiac silhouette. - Procedures none Assessment and Plan - Plan //Sepsis on admission //Hypoxemic respiratory failure = Leukocytosis of 31, tachypnea, hypoxemia with pulse oximetry 88% on room air, currently requiring 5 L nasal cannula. Pneumonia on chest x-ray IV fluids. Zithromax and cefepime since 11/09 for pneumonia. Continue to monitor. 3 per discussion with patient, will consult Dr. Salgado,. = 11/10. White blood cell count improving. Continue broad-spectrum antibiotics. //Sickle cell pain crisis With pain in the back, bilateral legs. Denies chest pain. = We will check CK Narcotics as needed, ct IV dilaudid consider po. = Anemia to be replaced as below. Continue oxygen. Continue to monitor //Acute on chronic anemia Hemoglobin 6.9 this morning. Bilirubin appears to be decreasing however. = We will transfuse 2 units. Hematology consult. //Impaired renal function. Creatinine 1.5. Improved on IV fluids. Continue to monitor. Obtain home med
[2017-11-11] MEDS: HYDROmorphone PF Inj 2 MG/ML Vial IV.PUSH PRN ×9 (01:32→22:53)
[2017-11-11] MEDS: Sod Chloride 0.9% Inj 1,000 ML IV.CONT SCH ×3 (03:10→17:39)
[2017-11-11 04:08] LABS: Baso # (Auto) 0.2 th/mm3 (0.0-0.2); Baso % (Auto) 0.9 % (0.0-2.0); Eos # (Auto) 1.1 th/mm3 (0.0-0.4); Eos % (Auto) 6.1 % (0.0-4.0); Hematocrit 25.3 % (39.0-51.0); Lymph # (Auto) 3.6 th/mm3 (1.0-4.8); Lymph % (Auto) 21.1 % (9.0-44.0); Mean Corpuscular HGB Conc 35.6 % (32.0-36.0); Mean Corpuscular Hemoglobin 29.4 pg (27.0-34.0); Mean Corpuscular Volume 82.7 fL (80.0-100.0); Mean Platelet Volume 8.3 fL (7.0-11.0); Mono # (Auto) 2.1 th/mm3 (0.0-0.9); Mono % (Auto) 12.1 % (0.0-8.0); Neut # (Auto) 10.2 th/mm3 (1.8-7.7); Neut % (Auto) 59.8 % (16.0-70.0); Platelet Count 344 th/mm3 (150-450); Red Blood Count 3.07 mil/mm3 (4.50-5.90); Red Cell Distribution Width 22.1 % (11.6-17.2); White Blood Count 17.1 th/mm3 (4.0-11.0)
[2017-11-11 04:29] LABS: Albumin 3.5 g/dL (3.4-5.0); Anion Gap 7 meq/L (5-15); Aspartate Aminotransferase 59 U/L (15-37); Blood Urea Nitrogen 21 mg/dL (7-18); Calcium 8.7 mg/dL (8.5-10.1); Carbon Dioxide 23.1 meq/L (21.0-32.0); Chloride 114 meq/L (98-107); Glomerular Filtration Rate 87 mL/min (>89); Glucose,Random 123 mg/dL (74-106); Magnesium 1.9 mg/dL (1.5-2.5); Potassium 4.3 meq/L (3.5-5.1); Sodium 144 meq/L (136-145)
[2017-11-11 04:40] LABS: Alanine Aminotransferase 39 U/L (12-78); Alkaline Phosphatase 248 U/L (45-117); Total Protein 7.4 g/dL (6.4-8.2)
[2017-11-11 07:40] LABS: Eosinophils 6 % (0-4); Lymphocytes 21 % (9-44); Monocytes 10 % (0-8); Pappenheimer Bodies Present; Polychromasia 2.5 % (0.0-1.9); Sickle Cells 2+; Tallied Nucleated RBC 2 (0-0)
[2017-11-11 07:41] LABS: Platelet Estimate Normal (Normal)
[2017-11-11] MEDS: Folic Acid 1 MG Tablet PO SCH (08:34)
[2017-11-11] MEDS: Senna/Docusate Sodium 8.6/50 MG Tablet PO SCH ×2 (08:34→20:50)
--- NOTE | 2017-11-11 15:26 | P.PN ---
Subjective Interval history: generalized aches- - points to the entire body but mostly noted on the right knee- limited in flexion with ppain- swelling noted on the medial aspect of the knee no pain with flexion of the right hip Physical Exam Vital signs: Vital Signs 11/10/17 15:32 11/10/17 16:49 11/10/17 16:50 Temperature Pulse Rate 94 H 90 Respiratory Rate 16 Blood Pressure Pulse Oximetry 11/10/17 17:18 11/10/17 17:30 11/10/17 17:40 Temperature 98.7 F Pulse Rate 82 79 81 Respiratory Rate 16 16 Blood Pressure 113/58 L Pulse Oximetry 97 11/10/17 19:00 11/10/17 20:16 11/10/17 21:34 Temperature 98.3 F 98.6 F Pulse Rate 86 86 Respiratory Rate 16 16 Blood Pressure 148/86 H 108/55 L Pulse Oximetry 93 L 93 L 97 11/10/17 23:00 11/11/17 03:00 11/11/17 04:00 Temperature 98.8 F Pulse Rate 84 75 77 Respiratory Rate 16 Blood Pressure 136/65 Pulse Oximetry 95 11/11/17 04:01 11/11/17 04:07 11/11/17 05:00 Temperature 98.2 F Pulse Rate 76 73 72 Respiratory Rate 16 16 Blood Pressure 116/65 Pulse Oximetry 95 11/11/17 06:06 11/11/17 07:00 11/11/17 08:00 Temperature 98.5 F Pulse Rate 73 64 72 Respiratory Rate 16 18 Blood Pressure 149/77 H Pulse Oximetry 100 100 11/11/17 09:00 11/11/17 10:00 11/11/17 11:00 Temperature 98.5 F Pulse Rate 73 77 76 Respiratory Rate 14 Blood Pressure 146/84 H Pulse Oximetry 96 11/11/17 12:00 11/11/17 13:00 11/11/17 14:00 Temperature Pulse Rate 84 92 H 96 H Respiratory Rate Blood Pressure Pulse Oximetry Intake & Output 11/10/17 11/11/17 11/11/17 18:59 06:59 18:59 Intake Total 5640 / 5640 2580 / 2580 1000 / 1000 Output Total 2800 / 2800 3110 / 3110 Balance 2840 / 2840 -530 / -530 1000 / 1000 Weight 66 kg Intake: IV 4800 / 4800 2100 / 2100 1000 / 1000 NS Inj 1,000 ML @ 150 mls/hr IV 1999 / 1999 2000 / 1999 1000 / 1000 .CONT .Q6H40M EMILIANO Rx#:[id number] Azithromycin Inj 500 MG In NS 500 / 500 Inj 250 ML @ 250 mls/hr IV.SIG Q24H EMILIANO Rx#:[id number] Maxipime Inj 2,000 MG In NS Inj 200 / 200 100 / 100 100 ML @ 200 mls/hr IV.SIG Q12H EIMLIANO Rx#:[id number] Oral 840 / 840 480 / 480 Intake (Blood Product) Amt 0 / 0 0 / 0 Rbc As-3 Leukoreduced Unit 0 / 0 0 / 0 [id number] Rbc As-5 Leukoreduced Unit 0 / 0 [id number] Output: Urine 2800 / 2800 3110 / 3110 Other: Date of Last Bowel Movement 11/09/17 11/09/17 # Bowel Movements 0 0 Narrative: awake and alert, oriented x 3 anicteric lungs- + dry rales left base regular rhythm abdomen soft, nontender right LE- right knee- wiht some fullness/swelling of the medial aspect of the knee, good pulses limitation in flexion Results - Labs CBC & Chem 7: 11/13/17 04:13 11/11/17 03:30 Laboratory Results - last 24 hr 11/10/17 11/11/17 11/11/17 10:25 03:30 03:30 WBC 17.1 H RBC 3.07 L Hgb 9.0 L D Hct 25.3 L MCV 82.7 MCH 29.4 MCHC 35.6 RDW 22.1 H Plt Count 344 MPV 8.3 Prelim Diff (Auto) Slide review pending Neut % (Auto) 59.8 Lymph % (Auto) 21.1 [place] % (Auto) 12.1 H Eos % (Auto) 6.1 H Baso % (Auto) 0.9 Neut # (Auto) 10.2 H Lymph # (Auto) 3.6 [place] # (Auto) 2.1 H Eos # (Auto) 1.1 H Baso # (Auto) 0.2 WBC Differential Manual diff final Seg Neuts % (Manual) 62 Lymphocytes % (Manual) 21 Monocytes % (Manual) 10 H Eosinophils % (Manual) 6 H Basophils % (Manual) 1 Abs Neuts (Manual) 10.6 H Nucleated RBCs/100 WBC 2 H Differential Comment . Platelet Estimate Normal Platelet Morphology Enlarged H Polychromasia 2.5 H Pappenheimer Bodies Present H Sickle Cells 2+ H Sodium 144 Potassium 4.3 D Chloride 114 H Carbon Dioxide 23.1 Anion Gap 7 BUN 21 H Creatinine 0.99 Estimated GFR 87 L Random Glucose 123 H Calcium 8.7 Magnesium 1.9 Total Bilirubin 7.9 H AST 59 H ALT 39 Alkaline Phosphatase 248 H Total Protein 7.4 Albumin 3.5 MTS Gel Crossmatch See Detail Bld Prod Order Comment Microbiology 11/09/17 04:50 Blood - Peripheral Aerobic Blood Culture - Preliminary No growth in 2 days 11/09/17 04:50 Blood - Peripheral Anaerobic Blood Culture - Preliminary No growth in 2 days 11/09/17 05:00 Blood - Peripheral Aerobic Blood Culture - Preliminary No growth in 2 days 11/09/17 05:00 Blood - Peripheral Anaerobic Blood Culture - Preliminary No growth in 2 days Assessment and Plan - Plan 32 years old male Sepsis on admission Hypoxemic respiratory failure Leukocytosis of 31, tachypnea, hypoxemia with pulse oximetry 88% on room air, currently requiring 5 L nasal cannula. Infiltrates on on chest x-ray - WBC ct trending down, patient afebrile, no sputum IV fluids. Broad-spectrum antibiotics for pneumonia. Continue to monitor. - cultures negative so far - Dr. Salgado ff along with us Sickle cell pain crisis sickle Cell anemia - S/P 2 units blood transfusion- H and H i,proved With pain and back, bilateral legs. Denies chest pain. = We will check CK Narcotics as needed.- IV Dilaudid prn for pain = Anemia to be replaced as below. Continue oxygen. Continue to monitor - add po oxycodone 10 mg po q 6 to pain regimen - states + flatus- and knows he is going to have a BM today- - states does not need any stool softener for now monitor BM NICK- Impaired renal function. creatinine down -Improved with IVF -Continue IV fluids. Continue to monitor. right knee pain/swelling with likely effusion on exam = get an MRI of the knee - PT consult in am to corin
[2017-11-11] MEDS: Azithromycin Inj 500 MG in Sodium Chlor 0.9% Inj 250 ML IV.SIG SCH (15:55)
[2017-11-12] MEDS: Sod Chloride 0.9% Inj 1,000 ML IV.CONT SCH ×5 (02:14→22:36)
[2017-11-12] MEDS: HYDROmorphone PF Inj 2 MG/ML Vial IV.PUSH PRN ×8 (02:14→21:14)
[2017-11-12] MEDS: Senna/Docusate Sodium 8.6/50 MG Tablet PO SCH ×2 (08:34→22:34)
[2017-11-12] MEDS: Folic Acid 1 MG Tablet PO SCH (08:34)
--- NOTE | 2017-11-12 12:34 | MR ---
EXAM DATE: 11/12/2017 11:59 AM EDT AGE/SEX: 32 years / Male INDICATIONS: . Right knee pain and swelling with no injury. CLINICAL DATA: This is the patient's subsequent encounter. Patient reports that signs and symptoms h ave been present for 4 - 6 days and indicates a pain score of 3/10. MEDICAL/SURGICAL HISTORY: Sickle Cell disease. gout . Rt knee surgery COMPARISON: No prior exams available for comparison. TECHNIQUE: Multiplanar, multisequence MRI examination was performed without contrast. FINDINGS: There is diffuse abnormality involving the marrow involving the metaphysis of both the distal femur a nd proximal tibia. A large joint effusion is present. There is an osteochondral defect with thinning of the overlying cartilage which is well demarcated with a serpentine border not surrounded by fluid in the medial femoral condyle. There is also an osteochondral defect less prominent involving the lat eral femoral condyle. The anterior cruciate and posterior cruciate limits are intact. The menisci demonstrate no tear. The medial and lateral collateral ligaments are intact. CONCLUSION: Osteochondral defects involving the medial lateral femoral condyles more severe medially. Large joint effusion is likely reactive. Extensive signal abnormality involving the bone marrow as described above. Leukemia, lymphoma and oth er blood dyscrasias would be considered. Correlate with clinical findings and laboratory studies is n ecessary. Electronically signed by: Myron Leung MD 11/12/2017 12:33 PM EDT
[2017-11-12] MEDS: Azithromycin Inj 500 MG in Sodium Chlor 0.9% Inj 250 ML IV.SIG SCH (14:24)
--- NOTE | 2017-11-12 18:57 | P.PNONC ---
Subjective Interval history: Complaints of continued sickle cell pain. He feels that he needs another 24 hours to determine if he would be able to successfully manage his symptoms at home. We discussed the work of merging his records from his previous hospitalization. Discussed the report from blood bank. His records from previous hospitalization has been large. Not available to blood bank at the time of his transfusion was a history of antibody C. Type and screen prior to his most recent transfusion was negative for antibody C. Therefore his blood was not specifically tight for an antibody C negative product. We discussed the need to monitor his hemoglobin for delayed transfusion reaction or delayed extravascular hemolytic process. Objective Vital Signs/Intake & Output: Vital Signs 11/11/17 19:00 11/11/17 20:00 11/11/17 21:00 Temperature 98.7 F Pulse Rate 76 82 100 H Respiratory Rate Blood Pressure 134/81 Pulse Oximetry 98 11/11/17 21:20 11/11/17 21:29 11/11/17 22:00 Temperature Pulse Rate 72 94 H Respiratory Rate 16 18 Blood Pressure Pulse Oximetry 11/11/17 22:51 11/11/17 22:53 11/11/17 23:00 Temperature Pulse Rate 96 H Respiratory Rate 16 16 Blood Pressure Pulse Oximetry 11/11/17 23:25 11/12/17 00:00 11/12/17 01:00 Temperature 98.7 F Pulse Rate 98 H 82 Respiratory Rate 16 Blood Pressure 139/79 Pulse Oximetry 99 11/12/17 02:00 11/12/17 02:45 11/12/17 03:00 Temperature 98.6 F Pulse Rate 88 84 Respiratory Rate 16 Blood Pressure 134/69 Pulse Oximetry 97 11/12/17 03:30 11/12/17 03:42 11/12/17 04:00 Temperature Pulse Rate 86 98 H Respiratory Rate 16 16 Blood Pressure Pulse Oximetry 11/12/17 05:00 11/12/17 07:00 11/12/17 08:00 Temperature 98.5 F Pulse Rate 98 H 101 H 80 Respiratory Rate 16 Blood Pressure 132/60 Pulse Oximetry 93 L 11/12/17 08:51 11/12/17 08:54 11/12/17 09:00 Temperature Pulse Rate 81 81 Respiratory Rate 18 16 Blood Pressure Pulse Oximetry 95 11/12/17 10:00 11/12/17 11:00 11/12/17 12:00 Temperature 98.2 F Pulse Rate 83 101 H 87 Respiratory Rate 16 Blood Pressure 120/68 Pulse Oximetry 98 11/12/17 12:47 11/12/17 13:00 11/12/17 14:00 Temperature Pulse Rate 79 80 Respiratory Rate 16 Blood Pressure Pulse Oximetry 11/12/17 14:58 11/12/17 15:12 11/12/17 15:14 Temperature 98.5 F Pulse Rate 76 83 Respiratory Rate 16 18 16 Blood Pressure 124/63 Pulse Oximetry 97 11/12/17 15:55 11/12/17 17:00 11/12/17 17:22 Temperature Pulse Rate 75 65 Respiratory Rate 16 Blood Pressure Pulse Oximetry 11/12/17 17:53 Temperature Pulse Rate 63 Respiratory Rate Blood Pressure Pulse Oximetry Intake & Output 11/11/17 11/12/17 11/12/17 18:59 06:59 18:59 Intake Total 3070 / 3070 960 / 960 3410 / 3410 Output Total 3125 / 3125 1300 / 1300 2200 / 2200 Balance -55 / -55 -340 / -340 1210 / 1210 Intake: IV 2350 / 2350 2450 / 2450 NS Inj 1,000 ML @ 150 mls/hr IV 1999 .CONT .Q6H40M [facility] Rx#:[id number] Azithromycin Inj 500 MG In NS 250 / 250 250 / 250 Inj 250 ML @ 250 mls/hr IV.SIG Q24H [facility] Rx#:[id number] Maxipime Inj 2,000 MG In NS Inj 100 / 100 200 / 200 100 ML @ 200 mls/hr IV.SIG Q12H [facility] Rx#:[id number] Oral 720 / 720 960 / 960 960 / 960 Output: Urine 3125 / 3125 1300 / 1300 2200 / 2200 Other: Date of Last Bowel Movement 11/09/17 11/12/17 # Bowel Movements 1 Result Diagrams: 11/11/17 03:30 11/11/17 03:30 Culture Results: Microbiology 11/09/17 04:50 Aerobic Blood Culture - Preliminary Blood - Peripheral No growth in 3 days Anaerobic Blood Culture - Preliminary No growth in 3 days 11/09/17 05:00 Aerobic Blood Culture - Preliminary Blood - Peripheral No growth in 3 days Anaerobic Blood Culture - Preliminary No growth in 3 days Imaging Studies: Impressions Chest X-Ray 11/09/17 03:20 CONCLUSION: 1. Low lung volumes. Mild basilar pulmonary opacity may represent vascular crowding, atelectasis, or mild pulmonary edema. 2. Mildly enlarged cardiac silhouette. Knee MRI 11/12/17 00:00 CONCLUSION: Osteochondral defects involving the medial lateral femoral condyles more severe medially. Large joint effusion is likely reactive. Extensive signal abnormality involving the bone marrow as described above. Leukemia, lymphoma and other blood dyscrasias would be considered. Correlate with clinical findings and laboratory studies is necessary. Medications: Active Medications Generic Name Dose Route Start Last Admin Trade Name Freq PRN Reason Stop Dose Admin Albuterol 1 ampul 11/09/17 16:00 11/12/17 15:10 Duoneb Neb (Leia) NEB 1 ampul Q6HR NEB [facility]IA Administration Folic Acid 1 mg 11/09/17 09:00 11/12/17 08:34 Folic Acid PO 1 mg DAILY LEIA Administration Hydromorphone HCl 2 mg 11/09/17 05:04 11/12/17 16:37 Dilaudid Pf Inj IV.PUSH 2 mg Q2H PRN Administration PAIN 6-10 Sodium Chloride 1,000 mls @ 150 mls/hr 11/09/17 05:15 11/12/17 14:24 Ns Inj IV.CONT 150 mls/hr .Q6H40M [facility] Administration Azithromycin 500 mg/ Sodium 250 mls @ 250 mls/hr 11/09/17 15:00 11/12/17 15: 15 Chloride IV.SIG Infused Q24H [facility] Infusion Cefepime HCl 2,000 mg/ Sodium 100 mls @ 200 mls/hr 11/09/17 17:00 11/12/17 17 :22 Chloride IV.SIG Infused Q12H [facility] Infusion Oxycodone HCl 10 mg 11/11/17 16:15 11/12/17 03:13 Roxicodone PO 10 mg Q6H PRN Administration BREAKTHROUGH PAIN Senna/Docusate Sodium 1 tab 11/09/17 09:00 11/12/17 08:34 Latrice-Colace PO Not Given BID LEIA Objective Remarks: GENERAL: Slender, well-developed patient. SKIN: Warm and dry. No rash HEAD: Normocephalic. EYES: No scleral icterus. No injection or drainage. NECK: Supple, trachea midline. No JVD or lymphadenopathy. LYMPHATIC: No adenopathy. CARDIOVASCULAR: Regular rate and rhythm without murmurs. RESPIRATORY: Breath sounds equal bilaterally. No accessory muscle use. GASTROINTESTINAL: Abdomen soft, non-tender, nondistended. EXTREMITIES: No cyanosis, or edema. Right knee effusion. MUSCULOSKELETAL: Adequate muscle tone. NEUROLOGICAL: No obvious focal deficit. Awake, alert, and oriented x3. PSYCHIATRIC: Appropriate mood and affect; insight and judgment normal. 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 He has a history of recurrent priapism. He is intolerant to hydroxyurea which precipitates his priapism. He has been treated in multiple hospitals including our own back in 2010. His records were recently emerged, his name is changed from previous hospitalizations. He is receiving supportive treatment with IV fluid hydration, pain medication, oxygen. His symptoms have sickle cell vaso-occlusive crisis has improved. He was anemic and was transfused 2 units of packed red cells. We discussed plans to monitor for delayed transfusion reaction or delayed extravascular hemolysis from the development of antibody C. 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 Repeat CBC, reticulocyte, LDH, and type and screen will be performed. The case was discussed with our blood bank. His records were identified. He would be able to follow-up at regional oncology in [facility] once discharged.
--- NOTE | 2017-11-12 21:26 | P.PNIM ---
Subjective Interval history: FU sickle cell. Patient laying in bed resting. States pain is much better controlled. Denies any chest pain or sob. He feels he may be able to go home tomorrow. Physical Exam Vital signs: Vital Signs 11/11/17 21:29 11/11/17 22:00 11/11/17 22:51 Temperature Pulse Rate 72 94 H Respiratory Rate 18 16 Blood Pressure Pulse Oximetry 11/11/17 22:53 11/11/17 23:00 11/11/17 23:25 Temperature Pulse Rate 96 H Respiratory Rate 16 16 Blood Pressure Pulse Oximetry 11/12/17 00:00 11/12/17 01:00 11/12/17 02:00 Temperature 98.7 F Pulse Rate 98 H 82 88 Respiratory Rate Blood Pressure 139/79 Pulse Oximetry 99 11/12/17 02:45 11/12/17 03:00 11/12/17 03:30 Temperature 98.6 F Pulse Rate 84 Respiratory Rate 16 16 Blood Pressure 134/69 Pulse Oximetry 97 11/12/17 03:42 11/12/17 04:00 11/12/17 05:00 Temperature Pulse Rate 86 98 H 98 H Respiratory Rate 16 Blood Pressure Pulse Oximetry 11/12/17 07:00 11/12/17 08:00 11/12/17 08:51 Temperature 98.5 F Pulse Rate 101 H 80 81 Respiratory Rate 16 18 Blood Pressure 132/60 Pulse Oximetry 93 L 95 11/12/17 08:54 11/12/17 09:00 11/12/17 10:00 Temperature Pulse Rate 81 83 Respiratory Rate 16 Blood Pressure Pulse Oximetry 11/12/17 11:00 11/12/17 12:00 11/12/17 12:47 Temperature 98.2 F Pulse Rate 101 H 87 Respiratory Rate 16 16 Blood Pressure 120/68 Pulse Oximetry 98 11/12/17 13:00 11/12/17 14:00 11/12/17 14:58 Temperature 98.5 F Pulse Rate 79 80 76 Respiratory Rate 16 Blood Pressure 124/63 Pulse Oximetry 97 11/12/17 15:12 11/12/17 15:14 11/12/17 15:55 Temperature Pulse Rate 83 75 Respiratory Rate 18 16 Blood Pressure Pulse Oximetry 11/12/17 17:00 11/12/17 17:22 11/12/17 17:53 Temperature Pulse Rate 65 63 Respiratory Rate 16 Blood Pressure Pulse Oximetry 11/12/17 21:02 Temperature Pulse Rate 63 Respiratory Rate 16 Blood Pressure Pulse Oximetry Intake & Output 11/12/17 11/12/17 11/13/17 06:59 18:59 06:59 Intake Total 960 / 960 3410 / 3410 1000 / 1000 Output Total 1300 / 1300 2200 / 2200 Balance -340 / -340 1210 / 1210 1000 / 1000 Intake: IV 2450 / 2450 1000 / 1000 NS Inj 1,000 ML @ 150 mls/hr IV 2000 / 2000 1000 / 1000 .CONT .Q6H40M [facility] Rx#:[id number] Azithromycin Inj 500 MG In NS 250 / 250 Inj 250 ML @ 250 mls/hr IV.SIG Q24H [facility] Rx#:[id number] Maxipime Inj 2,000 MG In NS Inj 200 / 200 100 ML @ 200 mls/hr IV.SIG Q12H [facility] Rx#:[id number] Oral 960 / 960 960 / 960 Output: Urine 1300 / 1300 2200 / 2200 Other: Date of Last Bowel Movement 11/09/17 11/12/17 # Bowel Movements 1 Narrative: GENERAL: This is a well-nourished, well-developed patient, in no apparent distress. CARDIOVASCULAR: Regular rate and rhythm without murmurs, gallops, or rubs. RESPIRATORY: Clear to auscultation. Breath sounds equal bilaterally. No wheezes , rales, or rhonchi. GASTROINTESTINAL: Abdomen soft, non-tender, nondistended. Normal active bowel sounds MUSCULOSKELETAL: Extremities without clubbing, cyanosis, or edema. NEURO: Alert & Oriented x4 to person, place, time, situation. Moves all ext x4 Results - Labs CBC & Chem 7: 11/11/17 03:30 11/11/17 03:30 Microbiology 11/09/17 04:50 Blood - Peripheral Aerobic Blood Culture - Preliminary No growth in 3 days 11/09/17 04:50 Blood - Peripheral Anaerobic Blood Culture - Preliminary No growth in 3 days 11/09/17 05:00 Blood - Peripheral Aerobic Blood Culture - Preliminary No growth in 3 days 11/09/17 05:00 Blood - Peripheral Anaerobic Blood Culture - Preliminary No growth in 3 days - Imaging Impressions Chest X-Ray 11/09/17 03:20 CONCLUSION: 1. Low lung volumes. Mild basilar pulmonary opacity may represent vascular crowding, atelectasis, or mild pulmonary edema. 2. Mildly enlarged cardiac silhouette. Knee MRI 11/12/17 00:00 CONCLUSION: Osteochondral defects involving the medial lateral femoral condyles more severe medially. Large joint effusion is likely reactive. Extensive signal abnormality involving the bone marrow as described above. Leukemia, lymphoma and other blood dyscrasias would be considered. Correlate with clinical findings and laboratory studies is necessary. Assessment and Plan - Plan 32 years old male Sepsis on admission Hypoxemic respiratory failure Leukocytosis of 31, tachypnea, hypoxemia with pulse oximetry 88% on room air, currently requiring 5 L nasal cannula. Infiltrates on on chest x-ray - WBC ct trending down, patient afebrile, no sputum IV fluids. Broad-spectrum antibiotics for pneumonia. Continue to monitor. - cultures negative so far - Dr. Salgado ff along with us Sickle cell pain crisis sickle Cell anemia - S/P 2 units blood transfusion- H and H improved With pain and back, bilateral legs. Denies chest pain. CK normal Narcotics as needed.- IV Dilaudid prn for pain -Anemia to be replaced as below. Continue oxygen. Continue to monitor - cont po oxycodone 10 mg po q 6 NICK- Impaired renal function. creatinine down -Improved with IVF -Continue IV fluids. Continue to monitor. right knee pain/swelling with likely effusion on exam -MRI of the knee shows a Large joint effusion which is likely reactive vs infectious, cont to monitor -PT consult in am to eval Discussed Condition With: Patient
[2017-11-13] MEDS: HYDROmorphone PF Inj 2 MG/ML Vial IV.PUSH PRN ×8 (00:30→22:05)
[2017-11-13] MEDS: Sod Chloride 0.9% Inj 1,000 ML IV.CONT SCH ×4 (02:12→22:04)
[2017-11-13 04:31] LABS: Baso # (Auto) 0.2 th/mm3 (0.0-0.2); Baso % (Auto) 1.4 % (0.0-2.0); Eos # (Auto) 0.6 th/mm3 (0.0-0.4); Eos % (Auto) 4.6 % (0.0-4.0); Hematocrit 25.3 % (39.0-51.0); Hemoglobin 8.7 gm/dL (13.0-17.0); Lymph # (Auto) 4.3 th/mm3 (1.0-4.8); Lymph % (Auto) 30.7 % (9.0-44.0); Mean Corpuscular HGB Conc 34.3 % (32.0-36.0); Mean Corpuscular Hemoglobin 28.7 pg (27.0-34.0); Mean Corpuscular Volume 83.8 fL (80.0-100.0); Mean Platelet Volume 7.9 fL (7.0-11.0); Mono % (Auto) 14.3 % (0.0-8.0); Neut # (Auto) 6.8 th/mm3 (1.8-7.7); Platelet Count 329 th/mm3 (150-450); Red Blood Count 3.02 mil/mm3 (4.50-5.90); Red Cell Distribution Width 21.8 % (11.6-17.2); Reticulocyte Percent 2.9 % (0.4-3.0); White Blood Count 13.9 th/mm3 (4.0-11.0)
[2017-11-13 05:49] LABS: Eosinophils 6 % (0-4); Lymphocytes 26 % (9-44); Monocytes 11 % (0-8); Tallied Nucleated RBC 4 (0-0)
[2017-11-13 05:50] LABS: Pappenheimer Bodies Present; Platelet Estimate Normal (Normal); Platelet Morphology Normal (Normal); Sickle Cells 1+
[2017-11-13 05:57] LABS: Howell-Jolly Bodies Present; Polychromasia 2.6 % (0.0-1.9)
[2017-11-13] MEDS ORDERED: HYDROmorphone PF Inj 2 MG/ML Vial IV.PUSH PRN (07:40)
--- NOTE | 2017-11-13 07:56 | P.PN ---
Subjective Interval history: afebrile, he is feeling much better pain improved right knee- feels 'Heavy" good urine output had a good BM last evening Physical Exam Vital signs: Vital Signs 11/12/17 08:00 11/12/17 08:51 11/12/17 08:54 Temperature Pulse Rate 80 81 Respiratory Rate 18 16 Blood Pressure Pulse Oximetry 95 11/12/17 09:00 11/12/17 10:00 11/12/17 11:00 Temperature 98.2 F Pulse Rate 81 83 101 H Respiratory Rate 16 Blood Pressure 120/68 Pulse Oximetry 98 11/12/17 12:00 11/12/17 12:47 11/12/17 13:00 Temperature Pulse Rate 87 79 Respiratory Rate 16 Blood Pressure Pulse Oximetry 11/12/17 14:00 11/12/17 14:58 11/12/17 15:12 Temperature 98.5 F Pulse Rate 80 76 83 Respiratory Rate 16 18 Blood Pressure 124/63 Pulse Oximetry 97 11/12/17 15:14 11/12/17 15:55 11/12/17 17:00 Temperature Pulse Rate 75 65 Respiratory Rate 16 Blood Pressure Pulse Oximetry 11/12/17 17:22 11/12/17 17:53 11/12/17 20:00 Temperature 98.7 F Pulse Rate 63 64 Respiratory Rate 16 16 Blood Pressure 142/73 H Pulse Oximetry 98 11/12/17 21:00 11/12/17 21:02 11/12/17 22:00 Temperature Pulse Rate 72 63 66 Respiratory Rate 16 Blood Pressure Pulse Oximetry 11/12/17 23:00 11/13/17 00:00 11/13/17 01:00 Temperature 97.5 F L Pulse Rate 68 78 70 Respiratory Rate 16 Blood Pressure 135/71 Pulse Oximetry 97 11/13/17 02:00 11/13/17 03:00 11/13/17 04:00 Temperature 98.2 F Pulse Rate 78 70 68 Respiratory Rate 16 Blood Pressure 121/66 Pulse Oximetry 98 11/13/17 05:00 11/13/17 05:06 11/13/17 06:00 Temperature Pulse Rate 70 74 84 Respiratory Rate 20 Blood Pressure Pulse Oximetry 11/13/17 07:00 Temperature Pulse Rate 70 Respiratory Rate Blood Pressure Pulse Oximetry Intake & Output 11/12/17 11/13/17 11/13/17 18:59 06:59 18:59 Intake Total 3410 / 3410 3480 / 3480 Output Total 2200 / 2200 2175 / 2175 Balance 1210 / 1210 1305 / 1305 Weight 67 kg Intake: IV 2450 / 2450 3000 / 3000 NS Inj 1,000 ML @ 150 mls/hr IV 2000 / 2000 3000 / 3000 .CONT .Q6H40M [facility] Rx#:[id number] Azithromycin Inj 500 MG In NS 250 / 250 Inj 250 ML @ 250 mls/hr IV.SIG Q24H [facility] Rx#:[id number] Maxipime Inj 2,000 MG In NS Inj 200 / 200 100 ML @ 200 mls/hr IV.SIG Q12H [facility] Rx#:[id number] Oral 960 / 960 480 / 480 Output: Urine 2200 / 2200 2175 / 2175 Other: Date of Last Bowel Movement 11/12/17 11/12/17 # Bowel Movements 1 Narrative: awake and alert, oriented x 3 anicteric lungs- no rales, no wheezes regular rhythm abdomen soft, nontender right LE- right knee- with suprapatellar swelling and effusion range of motion is much better compared to admission Results - Labs CBC & Chem 7: 11/13/17 04:13 11/11/17 03:30 Laboratory Results - last 24 hr 11/13/17 11/13/17 04:13 04:13 WBC 13.9 H RBC 3.02 L Hgb 8.7 L Hct 25.3 L MCV 83.8 MCH 28.7 MCHC 34.3 RDW 21.8 H Plt Count 329 MPV 7.9 Prelim Diff (Auto) Slide review pending Neut % (Auto) 49.0 Lymph % (Auto) 30.7 [place] % (Auto) 14.3 H Eos % (Auto) 4.6 H Baso % (Auto) 1.4 Neut # (Auto) 6.8 Lymph # (Auto) 4.3 [place] # (Auto) 2.0 H Eos # (Auto) 0.6 H Baso # (Auto) 0.2 WBC Differential Manual diff final Seg Neuts % (Manual) 57 Lymphocytes % (Manual) 26 Monocytes % (Manual) 11 H Eosinophils % (Manual) 6 H Abs Neuts (Manual) 7.9 H Nucleated RBCs/100 WBC 4 H Differential Comment . Platelet Estimate Normal Platelet Morphology Normal Polychromasia 2.6 H Pappenheimer Bodies Present H Sickle Cells 1+ H [place] Bodies Present H Retic Count 2.9 Absolute Retic 88.5 Lactate Dehydrogenase 540 H Microbiology 11/09/17 04:50 Blood - Peripheral Aerobic Blood Culture - Preliminary No growth in 3 days 11/09/17 04:50 Blood - Peripheral Anaerobic Blood Culture - Preliminary No growth in 3 days 11/09/17 05:00 Blood - Peripheral Aerobic Blood Culture - Preliminary No growth in 3 days 11/09/17 05:00 Blood - Peripheral Anaerobic Blood Culture - Preliminary No growth in 3 days - Imaging Impressions Chest X-Ray 11/09/17 03:20 CONCLUSION: 1. Low lung volumes. Mild basilar pulmonary opacity may represent vascular crowding, atelectasis, or mild pulmonary edema. 2. Mildly enlarged cardiac silhouette. Knee MRI 11/12/17 00:00 CONCLUSION: Osteochondral defects involving the medial lateral femoral condyles more severe medially. Large joint effusion is likely reactive. Extensive signal abnormality involving the bone marrow as described above. Leukemia, lymphoma and other blood dyscrasias would be considered. Correlate with clinical findings and laboratory studies is necessary. Assessment and Plan - Plan 32 years old male Sepsis on admission Hypoxemic respiratory failure Leukocytosis of 31, tachypnea, hypoxemia with pulse oximetry 88% on room air, currently requiring 5 L nasal cannula. Infiltrates on on chest x-ray - WBC ct trending down, patient afebrile, no sputum IV fluids. Broad-spectrum antibiotics for pneumonia. Continue to monitor. - cultures negative so far - Dr. Salgado ff along with us Sickle cell pain crisis sickle Cell anemia - S/P 2 units blood transfusion- H and H i,proved = We will check CK Narcotics as needed.- IV Dilaudid prn for pain- decreased dose - Continue oxygen prn . Continue to monitor - added po oxycodone 10 mg po q 6 to pain regimen - states + flatus- and knows he is going to have a BM today- - states does not need any stool softener for now monitor BM NICK- Impaired renal function. Resolved -Continue to monitor. - good po - good urine output Right knee effusion - better range of motion today on exam - on further history - patient states he had surgery/aspirations on this knee in 2016- in [facility] and diagnosis was "Gout" was placed on Allopurinol taking it but not regularly , during crisis he says he gets colchicine - will get orthopedics consult for evaluation- arthrocenteis/aspiration and send fluid studies for crystals, cultures - check uric acid level - give trial of colchicine 1.2 mg po x 1 now then 0.6 mg bid PT- increase activity
[2017-11-13] MEDS: Folic Acid 1 MG Tablet PO SCH (09:12)
[2017-11-13] MEDS: Senna/Docusate Sodium 8.6/50 MG Tablet PO SCH ×2 (09:12→22:04)
[2017-11-13 10:53] LABS: INR 3.9 Ratio; Prothrombin Time 38.8 sec (9.8-11.6)
[2017-11-13 11:03] LABS: Anion Gap 7 meq/L (5-15); Blood Urea Nitrogen 17 mg/dL (7-18); Calcium 8.6 mg/dL (8.5-10.1); Chloride 116 meq/L (98-107); Glomerular Filtration Rate Greater Than 89 mL/min (>89); Glucose,Random 88 mg/dL (74-106); Potassium 4.3 meq/L (3.5-5.1); Sodium 145 meq/L (136-145)
--- NOTE | 2017-11-13 11:33 | P.PNOP ---
Subjective Interval history: Admission due to sickle cell crisis. Consult for right knee swelling. On admission had significant tenderness due to sickle cell crisis. On exam today does not complain of pain. He does complain of swelling and states that he [place] the swelling that was similar. He has a history of gout. He denies any injury or trauma to his knee. Has no other orthopedic complaints Physical Exam Vital signs: Vital Signs 11/12/17 12:00 11/12/17 12:47 11/12/17 13:00 Temperature Pulse Rate 87 79 Respiratory Rate 16 Blood Pressure Pulse Oximetry 11/12/17 14:00 11/12/17 14:58 11/12/17 15:12 Temperature 98.5 F Pulse Rate 80 76 83 Respiratory Rate 16 18 Blood Pressure 124/63 Pulse Oximetry 97 11/12/17 15:14 11/12/17 15:55 11/12/17 17:00 Temperature Pulse Rate 75 65 Respiratory Rate 16 Blood Pressure Pulse Oximetry 11/12/17 17:22 11/12/17 17:53 11/12/17 20:00 Temperature 98.7 F Pulse Rate 63 64 Respiratory Rate 16 16 Blood Pressure 142/73 H Pulse Oximetry 98 11/12/17 21:00 11/12/17 21:02 11/12/17 22:00 Temperature Pulse Rate 72 63 66 Respiratory Rate 16 Blood Pressure Pulse Oximetry 11/12/17 23:00 11/13/17 00:00 11/13/17 01:00 Temperature 97.5 F L Pulse Rate 68 78 70 Respiratory Rate 16 Blood Pressure 135/71 Pulse Oximetry 97 11/13/17 02:00 11/13/17 03:00 11/13/17 04:00 Temperature 98.2 F Pulse Rate 78 70 68 Respiratory Rate 16 Blood Pressure 121/66 Pulse Oximetry 98 11/13/17 05:00 11/13/17 05:06 11/13/17 06:00 Temperature Pulse Rate 70 74 84 Respiratory Rate 20 Blood Pressure Pulse Oximetry 11/13/17 07:00 11/13/17 08:00 11/13/17 08:32 Temperature 97.3 F L Pulse Rate 67 67 79 Respiratory Rate 18 18 Blood Pressure 136/73 Pulse Oximetry 96 11/13/17 09:00 11/13/17 10:00 11/13/17 10:26 Temperature Pulse Rate 66 73 Respiratory Rate 16 Blood Pressure Pulse Oximetry Intake & Output 11/12/17 11/13/17 11/13/17 18:59 06:59 18:59 Intake Total 3410 / 3410 3480 / 3480 Output Total 2200 / 2200 2175 / 2175 Balance 1210 / 1210 1305 / 1305 Weight 67 kg Intake: IV 2450 / 2450 3000 / 3000 NS Inj 1,000 ML @ 150 mls/hr IV 2000 / 2000 3000 / 3000 .CONT .Q6H40M EMIL[facility] Rx#:[id number] Azithromycin Inj 500 MG In NS 250 / 250 Inj 250 ML @ 250 mls/hr IV.SIG Q24H EMIL[facility]O Rx#:[id number] Maxipime Inj 2,000 MG In NS Inj 200 / 200 100 ML @ 200 mls/hr IV.SIG Q12H EMIL[facility] Rx#:[id number] Oral 960 / 960 480 / 480 Output: Urine 2200 / 2200 2175 / 2175 Other: Date of Last Bowel Movement 11/12/17 11/12/17 11/12/17 # Bowel Movements 1 Narrative: Bilateral upper extremities: Full range of motion and neurovascularly intact. Left lower extremity: Full range of motion and neurovascularly intact Right lower extremity: No pain with hip or ankle range of motion. Distally intact sensation with good capillary refills. He has active dorsiflexion and plantarflexion of the foot. Examination of the knee reveals that he has range of motion from 0-130. He has no tenderness to palpation over swelling of the knee or over the medial or lateral joint lines. He has mild tenderness over the medial lateral collateral ligaments. He does have swelling superior to the patella +2. He has no tenderness to palpation over this point. There is no significant warmth or erythema. No drainage is noted. Skin is intact. He does have previous surgical portal incision sites. - Constitutional no acute distress - Routine HEENT Exam Head: Present: normocephalic, atraumatic Results - Labs CBC & Chem 7: 11/13/17 04:13 11/13/17 10:14 Laboratory Results - last 24 hr 11/13/17 11/13/17 11/13/17 04:13 04:13 10:14 WBC 13.9 H RBC 3.02 L Hgb 8.7 L Hct 25.3 L MCV 83.8 MCH 28.7 MCHC 34.3 RDW 21.8 H Plt Count 329 MPV 7.9 Prelim Diff (Auto) Slide review pending Neut % (Auto) 49.0 Lymph % (Auto) 30.7 [place] % (Auto) 14.3 H Eos % (Auto) 4.6 H Baso % (Auto) 1.4 Neut # (Auto) 6.8 Lymph # (Auto) 4.3 [place] # (Auto) 2.0 H Eos # (Auto) 0.6 H Baso # (Auto) 0.2 WBC Differential Manual diff final Seg Neuts % (Manual) 57 Lymphocytes % (Manual) 26 Monocytes % (Manual) 11 H Eosinophils % (Manual) 6 H Abs Neuts (Manual) 7.9 H Nucleated RBCs/100 WBC 4 H Differential Comment . Platelet Estimate Normal Platelet Morphology Normal Polychromasia 2.6 H Pappenheimer Bodies Present H Sickle Cells 1+ H Chavarria-[place] Bodies Present H Retic Count 2.9 Absolute Retic 88.5 PT 38.8 H INR 3.9 Sodium Potassium Chloride Carbon Dioxide Anion Gap BUN Creatinine Estimated GFR Random Glucose Uric Acid Calcium Lactate Dehydrogenase 540 H 11/13/17 11/13/17 10:14 10:14 WBC RBC Hgb Hct MCV MCH MCHC RDW Plt Count MPV Prelim Diff (Auto) Neut % (Auto) Lymph % (Auto) [place] % (Auto) Eos % (Auto) Baso % (Auto) Neut # (Auto) Lymph # (Auto) [place] # (Auto) Eos # (Auto) Baso # (Auto) WBC Differential Seg Neuts % (Manual) Lymphocytes % (Manual) Monocytes % (Manual) Eosinophils % (Manual) Abs Neuts (Manual) Nucleated RBCs/100 WBC Differential Comment Platelet Estimate Platelet Morphology Polychromasia Pappenheimer Bodies Sickle Cells [place] Bodies Retic Count Absolute Retic PT INR Sodium 145 Potassium 4.3 Chloride 116 H Carbon Dioxide 22.0 Anion Gap 7 BUN 17 Creatinine 0.88 Estimated GFR Greater than 89 Random Glucose 88 Uric Acid 10.6 H Calcium 8.6 Lactate Dehydrogenase Microbiology 11/09/17 04:50 Blood - Peripheral Aerobic Blood Culture - Preliminary No growth in 4 days 11/09/17 04:50 Blood - Peripheral Anaerobic Blood Culture - Preliminary No growth in 4 days 11/09/17 05:00 Blood - Peripheral Aerobic Blood Culture - Preliminary No growth in 4 days 11/09/17 05:00 Blood - Peripheral Anaerobic Blood Culture - Preliminary No growth in 4 days - Imaging Impressions Knee MRI 11/12/17 00:00 CONCLUSION: Osteochondral defects involving the medial lateral femoral condyles more severe medially. Large joint effusion is likely reactive. Extensive signal abnormality involving the bone marrow as described above. Leukemia, lymphoma and other blood dyscrasias would be considered. Correlate with clinical findings and laboratory studies is necessary. Assessment and Plan - Assessment and Plan Admission due to sickle cell crisis. Right knee suprapatellar swelling and edema Significant edema is noted over the right knee. He has no pain symptoms associated with gout or infection. Inflammation from sickle cell crisis is more than likely the origin of the swelling. I will discuss with Dr. Bedoya if he recommends aspiration. At this point I would still recommend conservative measures especially since he is continuing to improve with pain and with motion. Weightbearing as tolerated by lower externally
--- NOTE | 2017-11-13 12:39 | MB ---
cc: Josh Cooney DATE: 11/13/2017 REASON FOR ADMISSION: Sickle cell crisis. REASON FOR CONSULTATION: Right knee swelling with large effusion with previous gout. CONSULTING PHYSICIAN: Dr. Ata Bryant. HISTORY OF PRESENT ILLNESS: Curz is a 32-year-old man from [place]. He is admitted due to a sickle cell crisis. He has had significant improvement over the past several days. He began having more swelling over the superior portion of his right knee and over the past several days has had increased range of motion and decreased pain. MRI was performed, showing significant effusion. There was no erythema or drainage. He previously had similar symptoms and at one point in [facility] had the knee drained and washed out. He said at that point, it was not infected, but did have gout. PAST MEDICAL HISTORY: Sickle cell disease, gout, chronic anemia, priapism. PAST SURGICAL HISTORY: Cholecystectomy. SOCIAL HISTORY: Denies any tobacco, alcohol or illicit drug use. He is a student at [employer]. FAMILY HISTORY: Significant for sickle cell trait and no family history of cancer. REVIEW OF SYSTEMS: The patient denies fever, chills, weight loss, headache, visual changes, hearing loss, chest pain, palpitations, shortness of breath, nausea, vomiting, urinary changes, bowel changes, diarrhea, neck pain, back pain, skin rashes, weakness of extremities, numbness of extremities, anxiety or depression, but does have swelling of the right knee. PHYSICAL EXAMINATION: VITAL SIGNS: Temperature of 97.9 with a pulse rate of 65, respiratory rate is 16, blood pressure is 147/82 with a pulse oximetry of ____. GENERAL: Mr. Jefferson Lynn is a thin, well-developed man, in no acute distress. He is alert and oriented to person, place and time. HEENT: Pupils are equal, round and reactive to light and accommodation. Extraocular movements are intact. Nares with patent. Oral mucosa is moist. He has normal hearing and vision. NECK: Trachea is midline with no lymphadenopathy. LUNGS: Clear to auscultation with no accessory muscle use. CARDIOVASCULAR: Regular rate and rhythm. ABDOMEN: Soft and nondistended. MUSCULOSKELETAL: Bilateral upper extremities full range of motion and neurovascularly intact. Left lower extremity full range of motion and neurovascularly intact. Right lower extremity examination reveals no pain with hip or ankle range of motion. Distally, he has intact sensation with good capillary refills with active dorsiflexion and plantarflexion of the foot. Examination of the knee reveals a superior knee effusion. There is no erythema or drainage. He has no tenderness to palpation of the knee. Knee range of motion is from 0 degrees to 120 degrees. He is stable to varus and valgus stress and has negative anterior and posterior drawer sign. SKIN: Intact over the right lower extremity. LABORATORY DATA: Reveals a white blood cell count of 13.9, hemoglobin of 8.7, hematocrit of 25.3. Coagulation: PT is 38.8 with an INR of 3.9. Chemistry is 145 with a chloride of 116. IMAGING STUDIES: MRI of the right knee is ordered and obtained, which reveals medial and lateral collateral ligaments intact and anterior and posterior cruciate ligaments intact. There is a diffuse joint effusion. Some osteochondral defects are noted over the medial and lateral femoral condyle. ASSESSMENT: 1. Sickle cell crisis. 2. Joint effusion, right knee. PLAN: At this point, due to the joint effusion, we will continue to treat this conservatively. He has no signs of gout or infection over the knee. He does have osteochondral defects of his distal femoral condyle ,which could be responsible for inflammation or could be an end result of the sickle cell crisis to create inflammation throughout the knee joint. Due to elevated INR this may be hemarthrosis. With an INR of 3.9, it is not recommended to do an aspiration or washout of the knee at this time. We will continue to follow the knee and if the knee begins to exhibit any clinical correlation to infection or gouty arthritis, aspiration or washout may be necessary at that time. Imaging and clinical findings were discussed with Dr. Bedoya and we will continue to follow this patient while inpatient. Thank you for the consultation. KEON Soriano MD [facility] , 11:53 AM , 12:09 PM KATHY
[2017-11-13] MEDS: Azithromycin Inj 500 MG in Sodium Chlor 0.9% Inj 250 ML IV.SIG SCH (14:53)
[2017-11-14] MEDS: HYDROmorphone PF Inj 2 MG/ML Vial IV.PUSH PRN ×6 (00:26→17:32)
[2017-11-14] MEDS: Sod Chloride 0.9% Inj 1,000 ML IV.CONT SCH ×3 (03:50→11:12)
[2017-11-14] MEDS ORDERED: HYDROmorphone PF Inj 2 MG/ML Vial IV.PUSH PRN (07:24)
--- NOTE | 2017-11-14 07:52 | P.PN ---
Subjective Interval history: patient feeling better pain better knee no complains of pain- good range of motion Physical Exam Vital signs: Vital Signs 11/13/17 08:00 11/13/17 08:32 11/13/17 09:00 Temperature Pulse Rate 67 79 66 Respiratory Rate 18 Blood Pressure Pulse Oximetry 11/13/17 10:00 11/13/17 10:26 11/13/17 11:00 Temperature 97.9 F Pulse Rate 73 65 Respiratory Rate 16 16 Blood Pressure 147/82 H Pulse Oximetry 99 11/13/17 11:45 11/13/17 12:00 11/13/17 13:00 Temperature Pulse Rate 69 62 Respiratory Rate 17 Blood Pressure Pulse Oximetry 11/13/17 14:00 11/13/17 15:00 11/13/17 16:00 Temperature 97.6 F Pulse Rate 68 63 73 Respiratory Rate 17 Blood Pressure 157/81 H Pulse Oximetry 100 11/13/17 17:00 11/13/17 18:00 11/13/17 19:40 Temperature 98.1 F Pulse Rate 92 H 71 65 Respiratory Rate 19 Blood Pressure 141/82 H Pulse Oximetry 100 11/13/17 20:00 11/13/17 21:00 11/13/17 22:00 Temperature Pulse Rate 70 72 69 Respiratory Rate Blood Pressure Pulse Oximetry 11/13/17 23:00 11/13/17 23:40 11/14/17 00:00 Temperature 98.9 F Pulse Rate 68 72 71 Respiratory Rate 20 Blood Pressure 142/91 H Pulse Oximetry 100 11/14/17 01:36 11/14/17 02:20 11/14/17 03:50 Temperature 98.3 F Pulse Rate 73 61 63 Respiratory Rate 17 Blood Pressure 153/90 H Pulse Oximetry 100 11/14/17 04:35 11/14/17 05:05 11/14/17 06:14 Temperature Pulse Rate 66 62 77 Respiratory Rate Blood Pressure Pulse Oximetry 11/14/17 07:00 Temperature Pulse Rate 61 Respiratory Rate Blood Pressure Pulse Oximetry Intake & Output 11/13/17 11/14/17 11/14/17 18:59 06:59 18:59 Intake Total 2670 / 2670 2480 / 2480 Output Total 2150 / 2150 2100 / 2100 Balance 520 / 520 380 / 380 Weight 68 kg Intake: IV 1950 / 1949 1999 / 1999 NS Inj 1,000 ML @ 150 mls/hr IV 1500 / 1500 1999 / 1999 .CONT .Q6H40M [facility] Rx#:[id number] Azithromycin Inj 500 MG In NS 250 / 250 Inj 250 ML @ 250 mls/hr IV.SIG Q24H [facility] Rx#:[id number] Maxipime Inj 2,000 MG In NS Inj 200 / 200 100 ML @ 200 mls/hr IV.SIG Q12H [facility] Rx#:[id number] Oral 720 / 720 480 / 480 Output: Urine 2150 / 2150 2100 / 2100 Other: Date of Last Bowel Movement 11/12/17 # Bowel Movements 0 Narrative: awake and alert no acute distress anicteric lungs- no crackels, no wheezes regular rhythm abdomen soft, nontender extremities - right knee- + suprapatellar effusion, non tender, not hot or warm , good range of motion no calf swelling or tenderness Results - Labs CBC & Chem 7: 11/13/17 04:13 11/13/17 10:14 Laboratory Results - last 24 hr 11/13/17 11/13/17 11/13/17 10:14 10:14 10:14 PT 38.8 H INR 3.9 Sodium 145 Potassium 4.3 Chloride 116 H Carbon Dioxide 22.0 Anion Gap 7 BUN 17 Creatinine 0.88 Estimated GFR Greater than 89 Random Glucose 88 Uric Acid 10.6 H Calcium 8.6 Microbiology 11/09/17 04:50 Blood - Peripheral Aerobic Blood Culture - Preliminary No growth in 4 days 11/09/17 04:50 Blood - Peripheral Anaerobic Blood Culture - Preliminary No growth in 4 days 11/09/17 05:00 Blood - Peripheral Aerobic Blood Culture - Preliminary No growth in 4 days 11/09/17 05:00 Blood - Peripheral Anaerobic Blood Culture - Preliminary No growth in 4 days Assessment and Plan - Plan 32 years old male Sepsis on admission Hypoxemic respiratory failure- resolved- good sats - 100% at room air Leukocytosis of 31, tachypnea, hypoxemia with pulse oximetry 88% on room air, currently requiring 5 L nasal cannula. Infiltrates on on chest x-ray - WBC ct trending down, patient afebrile, no sputum - Dr. Salgado ff along with us - on Cefepimne - change to po Levaquin on DC - S/P course 5 days of IV Zithormax Sickle cell pain crisis sickle Cell anemia - S/P 2 units blood transfusion- H and H i,proved = We will check CK Narcotics as needed.- IV Dilaudid prn for pain- decreased dose - Continue oxygen prn . Continue to monitor - added po oxycodone 10 mg po q 6 to pain regimen - states + flatus-+ BM NICK- Impaired renal function. Resolved -Continue to monitor. - good po - good urine output Right knee effusion - not warm, good range of motion Hyperuricemia History of gout - on further history - patient states he had surgery/aspirations on this knee in 2016- in [facility] and diagnosis was "Gout" was placed on Allopurinol taking it but not regularly , during crisis he says he gets colchicine -appreciate orthopedics recommendation- conservative measures - dietitian consult for low diet recommendation - start on Allopurinol [address] today- OP ff up with PT-up and ambulating- patient states he has a walker at home for prn use
--- NOTE | 2017-11-14 08:17 | P.DS ---
Date of admission: 11/09/17 05:21 Primary care physician: No Primary Care Physician Attending physician on discharge: Ata Bryant Anticipated date of discharge: 11/14/17 Brief History from admission: 32-year-old male with a history of sickle cell anemia, gout who presents with a 1 day history of constant sharp pain in back, bilateral shoulders, bilateral legs. He says he began having fevers yesterday around 6 PM. Denies any sore throat, denies any cough. He does report moderate shortness of breath which has improved since admission. Reports pain continues, however has not worsened. DS: Medications - Discharge Medications Prescriptions: allopurinol [Zyloprim] 300 mg PO DAILY 30 Days #30 tab colchicine [Colcrys] 0.6 mg PO Q12H #6 tab RX: folic acid 1 mg PO DAILY #30 tab RX: levofloxacin 500 mg PO DAILY #4 tab DS: Summary Hospital Course: 32 years old male Sepsis on admission Hypoxemic respiratory failure- resolved- good sats - 100% at room air Leukocytosis of 31, tachypnea, hypoxemia with pulse oximetry 88% on room air, currently requiring 5 L nasal cannula. Infiltrates on on chest x-ray - WBC ct trending down, patient afebrile, no sputum - Dr. Salgado ff along with us - on Cefepimne - change to po Levaquin on DC - S/P course 5 days of IV Zithormax Sickle cell pain crisis sickle Cell anemia - S/P 2 units blood transfusion- H and H i,proved = We will check CK Narcotics as needed.- IV Dilaudid prn for pain- decreased dose - Continue oxygen prn . Continue to monitor - added po oxycodone 10 mg po q 6 to pain regimen - states + flatus-+ BM NICK- Impaired renal function. Resolved -Continue to monitor. - good po - good urine output Right knee effusion - not warm, good range of motion Hyperuricemia History of gout - on further history - patient states he had surgery/aspirations on this knee in 2016- in [facility] and diagnosis was "Gout" was placed on Allopurinol taking it but not regularly , during crisis he says he gets colchicine -appreciate orthopedics recommendation- conservative measures - dietitian consult for low diet recommendation - start on Allopurinol 300 mg po daily DC hoem today- OP ff up with PT-up and ambulating- patient states he has a walker at home for prn use - Time Spent with Patient Total time spent providing and/or coordinating discharge services: Less than 30 minutes Exam Vital signs: Vital Signs 11/13/17 08:32 11/13/17 09:00 11/13/17 10:00 Temperature Pulse Rate 79 66 73 Respiratory Rate 18 Blood Pressure Pulse Oximetry 11/13/17 10:26 11/13/17 11:00 11/13/17 11:45 Temperature 97.9 F Pulse Rate 65 Respiratory Rate 16 16 17 Blood Pressure 147/82 H Pulse Oximetry 99 11/13/17 12:00 11/13/17 13:00 11/13/17 14:00 Temperature Pulse Rate 69 62 68 Respiratory Rate Blood Pressure Pulse Oximetry 11/13/17 15:00 11/13/17 16:00 11/13/17 17:00 Temperature 97.6 F Pulse Rate 63 73 92 H Respiratory Rate 17 Blood Pressure 157/81 H Pulse Oximetry 100 11/13/17 18:00 11/13/17 19:40 11/13/17 20:00 Temperature 98.1 F Pulse Rate 71 65 70 Respiratory Rate 19 Blood Pressure 141/82 H Pulse Oximetry 100 11/13/17 21:00 11/13/17 22:00 11/13/17 23:00 Temperature Pulse Rate 72 69 68 Respiratory Rate Blood Pressure Pulse Oximetry 11/13/17 23:40 11/14/17 00:00 11/14/17 01:36 Temperature 98.9 F Pulse Rate 72 71 73 Respiratory Rate 20 Blood Pressure 142/91 H Pulse Oximetry 100 11/14/17 02:20 11/14/17 03:50 11/14/17 04:35 Temperature 98.3 F Pulse Rate 61 63 66 Respiratory Rate 17 Blood Pressure 153/90 H Pulse Oximetry 100 11/14/17 05:05 11/14/17 06:14 11/14/17 07:00 Temperature Pulse Rate 62 77 61 Respiratory Rate Blood Pressure Pulse Oximetry 11/14/17 07:57 11/14/17 07:58 Temperature 98.3 F Pulse Rate 67 Respiratory Rate 16 Blood Pressure 146/82 H Pulse Oximetry 100 100 Intake & Output 11/13/17 11/14/17 11/14/17 18:59 06:59 18:59 Intake Total 2670 / 2670 2580 / 2580 Output Total 2150 / 0 2099 / 2099 Balance 520 / 520 480 / 480 Weight 68 kg Intake: IV 1950 / 1950 2099 NS Inj 1,000 ML @ 150 mls/hr IV 1500 / 1500 1999 / 1999 .CONT .Q6H40M [facility] Rx#:[id number] Azithromycin Inj 500 MG In NS 250 / 250 Inj 250 ML @ 250 mls/hr IV.SIG Q24H [facility] Rx#:[id number] Maxipime Inj 2,000 MG In NS Inj 200 / 200 100 / 100 100 ML @ 200 mls/hr IV.SIG Q12H [facility] Rx#:[id number] Oral 720 / 720 480 / 480 Output: Urine 2149 / 2149 Other: Date of Last Bowel Movement 11/12/17 # Bowel Movements 0 Narrative: awake and alert no acute distress anicteric lungs- no crackels, no wheezes regular rhythm abdomen soft, nontender extremities - right knee- + suprapatellar effusion, non tender, not hot or warm , good range of motion no calf swelling or tenderness Results Procedures completed during hospitalization: none Labs on day of discharge: Labs from last 24 hours 11/13/17 11/13/17 11/13/17 10:14 10:14 10:14 PT 38.8 H INR 3.9 Sodium 145 Potassium 4.3 Chloride 116 H Carbon Dioxide 22.0 Anion Gap 7 BUN 17 Creatinine 0.88 Estimated GFR Greater than 89 Random Glucose 88 Uric Acid 10.6 H Calcium 8.6 Preliminary micro results at discharge 11/09/17 04:50 Aerobic Blood Culture - Preliminary Blood - Peripheral No growth in 4 days Anaerobic Blood Culture - Preliminary No growth in 4 days 11/09/17 05:00 Aerobic Blood Culture - Preliminary Blood - Peripheral No growth in 4 days Anaerobic Blood Culture - Preliminary No growth in 4 days - Impressions ITS Impressions Chest X-Ray 11/09/17 03:20 CONCLUSION: 1. Low lung volumes. Mild basilar pulmonary opacity may represent vascular crowding, atelectasis, or mild pulmonary edema. 2. Mildly enlarged cardiac silhouette. Knee MRI 11/12/17 00:00 CONCLUSION: Osteochondral defects involving the medial lateral femoral condyles more severe medially. Large joint effusion is likely reactive. Extensive signal abnormality involving the bone marrow as described above. Leukemia, lymphoma and other blood dyscrasias would be considered. Correlate with clinical findings and laboratory studies is necessary. Discharge Plan - Discharge Disposition Patient Disposition: 01 Discharge Home - Discharge Condition Condition: Stable - Discharge Order Discharge Orders: Discharge Order (Routine); Ordered 11/14/17 Ordered By: Ata Bryant Oncology Clear for Discharge (Routine); Ordered 11/14/17 Ordered By: Thea Lacey - Discharge Details Anticipated Discharge Date: 11/14/17 - Physicians Team Primary Care Provider: Primary Care Joanna Diaz Attending Provider: Ata Bryant Other Providers: Lashay Salgado MD ; Tesfaye Lidnsay MD
[2017-11-14] MEDS ORDERED: Allopurinol 300 MG Tablet PO SCH (09:00)
[2017-11-14] MEDS ORDERED: levoFLOXacin 500 MG Tablet PO SCH (09:00)
[2017-11-14] MEDS: Folic Acid 1 MG Tablet PO SCH (09:17)
[2017-11-14] MEDS: Senna/Docusate Sodium 8.6/50 MG Tablet PO SCH (09:17)
--- NOTE | 2017-11-14 13:51 | P.PNONC ---
Subjective Interval history: Afebrile Patient resting in bed on cell phone Reports his pain is much better controlled; feels comfortable to go home today Hoping to go home on 15 mg oxycodone as he reports this works better than the 10 mg Objective Vital Signs/Intake & Output: Vital Signs 11/13/17 14:00 11/13/17 15:00 11/13/17 16:00 Temperature 97.6 F Pulse Rate 68 63 73 Respiratory Rate 17 Blood Pressure 157/81 H Pulse Oximetry 100 11/13/17 17:00 11/13/17 18:00 11/13/17 19:40 Temperature 98.1 F Pulse Rate 92 H 71 65 Respiratory Rate 19 Blood Pressure 141/82 H Pulse Oximetry 100 11/13/17 20:00 11/13/17 21:00 11/13/17 22:00 Temperature Pulse Rate 70 72 69 Respiratory Rate Blood Pressure Pulse Oximetry 11/13/17 23:00 11/13/17 23:40 11/14/17 00:00 Temperature 98.9 F Pulse Rate 68 72 71 Respiratory Rate 20 Blood Pressure 142/91 H Pulse Oximetry 100 11/14/17 01:36 11/14/17 02:20 11/14/17 03:50 Temperature 98.3 F Pulse Rate 73 61 63 Respiratory Rate 17 Blood Pressure 153/90 H Pulse Oximetry 100 11/14/17 04:35 11/14/17 05:05 11/14/17 06:14 Temperature Pulse Rate 66 62 77 Respiratory Rate Blood Pressure Pulse Oximetry 11/14/17 07:00 11/14/17 07:57 11/14/17 07:58 Temperature 98.3 F Pulse Rate 61 67 Respiratory Rate 16 Blood Pressure 146/82 H Pulse Oximetry 100 100 11/14/17 08:00 11/14/17 09:00 11/14/17 10:00 Temperature Pulse Rate 67 62 82 Respiratory Rate Blood Pressure Pulse Oximetry 11/14/17 11:00 11/14/17 12:00 11/14/17 13:00 Temperature Pulse Rate 74 67 74 Respiratory Rate 14 Blood Pressure 128/76 Pulse Oximetry 95 Intake & Output 11/13/17 11/14/17 11/14/17 18:59 06:59 18:59 Intake Total 2670 / 2670 2580 / 2580 1000 / 1000 Output Total 2150 / 2150 2100 / 2100 Balance 520 / 520 480 / 480 1000 / 1000 Weight 149 lb 14.629 oz Intake: IV 1950 / 1950 2099 / 2099 1000 / 1000 NS Inj 1,000 ML @ 150 mls/hr IV 1500 / 1500 2000 / 2000 1000 / 1000 .CONT .Q6H40M [facility] Rx#:[id number] Azithromycin Inj 500 MG In NS 250 / 250 Inj 250 ML @ 250 mls/hr IV.SIG Q24H [facility] Rx#:[id number] Maxipime Inj 2,000 MG In NS Inj 200 / 200 100 / 100 100 ML @ 200 mls/hr IV.SIG Q12H [facility] Rx#:[id number] Oral 720 / 720 480 / 480 Output: Urine 2150 / 2150 2099 Other: Date of Last Bowel Movement 11/12/17 11/12/17 # Bowel Movements 0 Result Diagrams: 11/13/17 04:13 11/13/17 10:14 Culture Results: Microbiology 11/09/17 04:50 Aerobic Blood Culture - Final Blood - Peripheral No growth in 5 days Anaerobic Blood Culture - Final No growth in 5 days 11/09/17 05:00 Aerobic Blood Culture - Final Blood - Peripheral No growth in 5 days Anaerobic Blood Culture - Final No growth in 5 days Medications: Active Medications Generic Name Dose Route Start Last Admin Trade Name Freq PRN Reason Stop Dose Admin Allopurinol 300 mg 11/14/17 09:00 11/14/17 09:16 Zyloprim PO 300 mg DAILY [facility] Administration Colchicine 0.6 mg 11/13/17 20:00 11/14/17 09:16 Colcrys PO 0.6 mg Q12H [facility] Administration Folic Acid 1 mg 11/09/17 09:00 11/14/17 09:17 Folic Acid PO 1 mg DAILY [facility] Administration Hydromorphone HCl 0.5 mg 11/14/17 07:24 11/14/17 11:09 Dilaudid Pf Inj IV.PUSH 0.5 mg Q2H PRN Administration PAIN 6-10 Sodium Chloride 1,000 mls @ 150 mls/hr 11/09/17 05:15 11/14/17 11:12 Ns Inj IV.CONT 150 mls/hr .Q6H40M [facility] Administration Levofloxacin 500 mg 11/14/17 09:00 11/14/17 09:16 Levaquin PO 500 mg DAILY [facility] Administration Oxycodone HCl 10 mg 11/11/17 16:15 11/14/17 11:08 Roxicodone PO 10 mg Q6H PRN Administration BREAKTHROUGH PAIN Senna/Docusate Sodium 1 tab 11/09/17 09:00 11/14/17 09:17 Latrice-Colace PO Not Given BID [facility] Objective Remarks: GENERAL: Slender young male resting in bed in no obvious distress SKIN: Warm and dry. No rash HEAD: Normocephalic. EYES: No scleral icterus. No injection or drainage. NECK: Supple, trachea midline. No JVD or lymphadenopathy. CARDIOVASCULAR: Regular rate and rhythm without murmurs. RESPIRATORY: Breath sounds equal bilaterally. No accessory muscle use. GASTROINTESTINAL: Abdomen soft, non-tender, nondistended. EXTREMITIES: No cyanosis, or edema. Right knee effusion. Nontender. MUSCULOSKELETAL: Adequate muscle tone. NEUROLOGICAL: No obvious focal deficit. Awake, alert, and oriented x3. 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 He has a history of recurrent priapism. He is intolerant to hydroxyurea which precipitates his priapism. He has been treated in multiple hospitals including our own back in 2010. His records were recently emerged, his name is changed from previous hospitalizations. 1. Patient sickle cell pain much improved 2. Clear for discharge from oncology standpoint 3. Message sent to new patient referrals as it has been many years since his follow-up - Attending Statement Patient was discharged before could be seen. Discussed with [employer]. Follow-up in clinic on an outpatient basis.
--- NOTE | 2017-11-14 14:32 | P.DIET ---
Nutritional Evaluation Type of nutrition evaluation: initial Nutrition screening: [facility] [place] Screening comments: 11/14 Pt with gout, diet education Assessment Assessment: Patient educated on low purine diet to help relieve gout symptoms. Reviewed foods to avoid, foods to eat in moderate amounts and food with low or now purine in them. Provided pt with written literature. Pt asked questions and was able to verbalize the basic guidelines. Expect good compliance.
[2017-11-14 15:42] VITALS: O2SAT 96
[2017-11-14 15:44] VITALS: BP 130/78; RESP 16; TEMP 98.7
[2017-11-14 17:43] VITALS: PULSE 76
== END 2017-11-14 18:02 | disposition home or self-care (01) ==
LOC: NEPE 02:53 → NEDA 05:21 → MERGE 05:21 → HCPC 06:03
PROVIDERS: ADMIT Internal Medicine; ATTEND Internal Medicine

== ENCOUNTER 2018-01-30 01:43 | Inpatient (IN) ==
[2018-01-30 02:57] LABS: Alanine Aminotransferase 40 U/L (12-78)
[2018-01-30 02:59] LABS: Alkaline Phosphatase 215 U/L (45-117); Total Protein 8.2 g/dL (6.4-8.2)
[2018-01-30 03:01] LABS: Albumin 3.9 g/dL (3.4-5.0); Anion Gap 7 meq/L (5-15); Aspartate Aminotransferase 103 U/L (15-37); Blood Urea Nitrogen 32 mg/dL (7-18); Calcium 8.5 mg/dL (8.5-10.1); Carbon Dioxide 24.6 meq/L (21.0-32.0); Chloride 105 meq/L (98-107); Glomerular Filtration Rate 55 mL/min (>89); Glucose,Random 98 mg/dL (74-106); Potassium 4.9 meq/L (3.5-5.1)
[2018-01-30] MEDS ORDERED: HYDROmorphone PF Inj 2 MG/ML Vial IV.PUSH ONE ×2 (03:01→04:51)
[2018-01-30 03:02] LABS: Sodium 137 meq/L (136-145)
[2018-01-30] MEDS: Sod Chloride 0.9% Inj 1,000 ML IV.SIG SCH (03:15)
--- NOTE | 2018-01-30 03:26 | XR ---
EXAM DATE: 01/30/2018 3:03 AM EDT AGE/SEX: 32 years / Male INDICATIONS: Sickle cell crisis CLINICAL DATA: This is the patient's initial encounter. Patient reports that signs and symptoms have been present for 1 day and indicates a pain score of 10/10. MEDICAL/SURGICAL HISTORY: Sickle Cell disease. None. COMPARISON: No prior exams available for comparison. FINDINGS: Heart size enlarged. Mild cardiomegaly. No dense consolidation or significant effusion. 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 CONCLUSION: Cardiomegaly with mild basilar atelectasis. No effusion. Electronically signed by: Ariel Looney MD 01/30/2018 3:25 AM EDT
[2018-01-30 03:39] LABS: Baso # (Auto) 0.3 th/mm3 (0.0-0.2); Baso % (Auto) 1.7 % (0.0-2.0); Eos # (Auto) 0.8 th/mm3 (0.0-0.4); Eos % (Auto) 4.1 % (0.0-4.0); Lymph # (Auto) 6.5 th/mm3 (1.0-4.8); Lymph % (Auto) 32.4 % (9.0-44.0); Mean Corpuscular Hemoglobin 29.4 pg (27.0-34.0); Mean Corpuscular Volume 80.3 fL (80.0-100.0); Mean Platelet Volume 8.5 fL (7.0-11.0); Mono # (Auto) 2.4 th/mm3 (0.0-0.9); Mono % (Auto) 12.2 % (0.0-8.0); Neut # (Auto) 9.9 th/mm3 (1.8-7.7); Neut % (Auto) 49.6 % (16.0-70.0); Red Blood Count 2.25 mil/mm3 (4.50-5.90); Red Cell Distribution Width 26.3 % (11.6-17.2); Reticulocyte Percent 18.8 % (0.4-3.0)
--- NOTE | 2018-01-30 03:40 | ED ---
HPI General Chief complaint: Sickle Cell Stated complaint: Sickle cell pain Time Seen by Provider: 01/30/18 02:57 History of Present Illness HPI narrative: Is a 32-year-old male with a history of sickle cell disease presents emergency department complaining of abdominal pain back pain and arm pain. This is typical for his vaso-occlusive pain crises. He states he gets crisis to bring him to the emergency department about once every 4 months or so. This is typical for him. He does have a little bit of shortness of breath but he states is unusual, but not hurt up with his crises. Has not been sick otherwise. Symptoms been ongoing for couple days, worse today, unrelieved despite his home oxycodone. No other complaints. Related Data Home Medications Medication Instructions Recorded Confirmed folic acid 0.4 mg PO DAILY 01/30/18 01/30/18 oxycodone 15 mg PO Q8HR PRN 01/30/18 01/30/18 Allergies Allergy/AdvReac Type Severity Reaction Status Date / Time No Known Allergies Allergy Uncoded 11/19/17 12:12 Review of Systems ROS: all other systems reviewed are negative [facility] Medical History Medical History Gout (Acute) Gout (Acute) Sickle cell anemia (Acute) Sickle cell anemia (Acute) Surgical History Surgical History History of cholecystectomy (Acute) Hx of cholecystectomy (Acute) Family History Family History Father Gout Social History Social History Substance History: No History of Abuse Second Hand Smoke Exposure: No Smoking Status: Never smoker How Often Do You Have a Drink Containing Alcohol: Never Recent Travel in [place] within the Last 8 Weeks: No Recent Out of Country Travel within the Last 8 Weeks: No Immunization History Tetanus Immunization: >5 Years Exam Narrative Exam Narrative: GENERAL: Well-appearing 32-year-old man, no acute distress. SKIN: Focused skin assessment warm/dry. HEAD: Atraumatic. Normocephalic. EYES: Pupils equal and round. No scleral icterus. No injection or drainage. ENT: No nasal bleeding or discharge. Mucous membranes pink and moist. NECK: Trachea midline. No JVD. CARDIOVASCULAR: Regular rate and rhythm. No murmur appreciated. RESPIRATORY: No accessory muscle use. Clear to auscultation. Breath sounds equal bilaterally. GASTROINTESTINAL: Abdomen soft, non-tender, nondistended. Hepatic and splenic margins not palpable. MUSCULOSKELETAL: No obvious deformities. No clubbing. No cyanosis. No edema. NEUROLOGICAL: Awake and alert. No obvious cranial nerve deficits. Motor grossly within normal limits. Normal speech. PSYCHIATRIC: Appropriate mood and affect; insight and judgment normal. Course Initial Documented Vital Signs Pulse Rate 93 H 01/30/18 01:45 Respiratory Rate 16 01/30/18 01:45 Blood Pressure 160/78 H 01/30/18 01:45 Last Documented Vital Signs Temperature 98.7 F 01/30/18 05:17 Pulse Rate 76 01/30/18 05:17 Respiratory Rate 16 01/30/18 05:17 Blood Pressure 122/68 01/30/18 05:17 Pulse Oximetry 95 01/30/18 05:17 Medical Decision Making [facility] Narrative Medical decision making narrative: 29-year-old male with sickle cell disease here with vaso-occlusive pain crisis. Little bit of shortness of breath. Will check a chest x-ray. Will check labs. Pain control, reassess. Medical Screen Exam Complete: Yes Emergency Medical Condition: Yes Lab Data Result diagrams: 01/30/18 02:25 01/30/18 02:25 Lab Results 01/30/18 01/30/18 01/30/18 Range/Units 02:25 02:25 03:45 WBC 20.5 H (4.0-11.0) th/mm3 RBC 2.25 L (4.50-5.90) mil/mm3 Hgb 6.6 L* (13.0-17.0) gm/dL Hct 18.1 L* (39.0-51.0) % MCV 80.3 (80.0-100.0) fL MCH 29.4 (27.0-34.0) pg MCHC 36.6 H (32.0-36.0) % RDW 26.3 H (11.6-17.2) % Plt Count 286 (150-450) th/mm3 MPV 8.5 (7.0-11.0) fL Prelim Diff (Auto) Slide review pending Neut % (Auto) 49.6 (16.0-70.0) % Lymph % (Auto) 32.4 (9.0-44.0) % Phillips % (Auto) 12.2 H (0.0-8.0) % Eos % (Auto) 4.1 H (0.0-4.0) % Baso % (Auto) 1.7 (0.0-2.0) % Neut # (Auto) 9.9 H (1.8-7.7) th/mm3 Lymph # (Auto) 6.5 H (1.0-4.8) th/mm3 Phillips # (Auto) 2.4 H (0.0-0.9) th/mm3 Eos # (Auto) 0.8 H (0.0-0.4) th/mm3 Baso # (Auto) 0.3 H (0.0-0.2) th/mm3 WBC Differential Manual diff final Seg Neuts % (Manual) 67 (16-70) % Band Neuts % (Manual) 1 (0-6) % Lymphocytes % (Manual) 23 (9-44) % Monocytes % (Manual) 7 (0-8) % Eosinophils % (Manual) 2 (0-4) % Abs Neuts (Manual) 13.9 H (1.8-7.7) th/mm3 Nucleated RBCs/100 WBC 6 H (0-0) /100 WBC Differential Comment . Platelet Estimate Normal (Normal) Platelet Morphology Normal (Normal) Polychromasia 4.9 H (0.0-1.9) % Pappenheimer Bodies Present H (None) Sickle Cells 3+ H (None) Target Cells 1+ H (None) [place] Bodies Present H (None) Retic Count 18.8 H (0.4-3.0) % Absolute Retic 423.2 H (20.0-150.0) mil/L Hematology Comments Sodium 137 (136-145) meq/L Potassium 4.9 (3.5-5.1) meq/L Chloride 105 (98-107) meq/L Carbon Dioxide 24.6 (21.0-32.0) meq/L Anion Gap 7 (5-15) meq/L BUN 32 H (7-18) mg/dL Creatinine 1.74 H (0.60-1.30) mg/dL Estimated GFR 55 L (>89) mL/min Random Glucose 98 (74-106) mg/dL Calcium 8.5 (8.5-10.1) mg/dL Total Bilirubin 15.6 H (0.2-1.0) mg/dL AST 103 H (15-37) U/L ALT 40 (12-78) U/L Alkaline Phosphatase 215 H (45-117) U/L Total Protein 8.2 (6.4-8.2) g/dL Albumin 3.9 (3.4-5.0) g/dL Blood Type O Positive Antibody Screen Negative MTS Gel Crossmatch See Detail Imaging Data Radiologist's impression: Chest X-Ray 01/30/18 03:03 CONCLUSION: Cardiomegaly with mild basilar atelectasis. No effusion. Discharge Plan Discharge Disposition Patient Disposition: 29 Still Patient Physicians Team ED Provider: Isaak Denny Primary Care Provider: Primary Care Joanna Diaz Attending Provider: Dali Yarbrough Other Providers: Lashay Salgado Discharge Interventions Interventions: ED Discharge Assessment Last Done: 01/30/18 06:04 Vital Signs Last Done: 01/30/18 01:48 Status ED Status: Left Department Discharge Information Discharge Date/Time: 01/30/18 06:05
[2018-01-30 03:44] LABS: Mean Corpuscular HGB Conc 36.6 % (32.0-36.0); Platelet Count 286 th/mm3 (150-450); White Blood Count 20.5 th/mm3 (4.0-11.0)
[2018-01-30 03:47] LABS: Hemoglobin 6.6 gm/dL (13.0-17.0)
[2018-01-30 03:48] LABS: Hematocrit 18.1 % (39.0-51.0)
[2018-01-30 04:02] LABS: Eosinophils 2 % (0-4); Lymphocytes 23 % (9-44); Monocytes 7 % (0-8); Tallied Nucleated RBC 6 (0-0)
[2018-01-30 04:03] LABS: Howell-Jolly Bodies Present; Pappenheimer Bodies Present; Platelet Estimate Normal (Normal); Platelet Morphology Normal (Normal)
[2018-01-30 04:04] LABS: Polychromasia 4.9 % (0.0-1.9)
[2018-01-30 04:05] LABS: Sickle Cells 3+; Target Cells 1+
[2018-01-30] MEDS ORDERED: HYDROmorphone PF Inj 2 MG/ML Vial IV.PUSH PRN ×2 (05:04)
[2018-01-30] MEDS ORDERED: Bisacodyl 10 MG Supp RECTAL PRN (05:06)
[2018-01-30] MEDS ORDERED: Acetaminophen 325 MG Tablet PO PRN (05:06)
[2018-01-30] MEDS: Sod Chloride 0.9% Inj 1,000 ML IV.CONT SCH ×2 (05:19→17:37)
[2018-01-30] MEDS: Sodium Chlor 0.9% Inj 250 ML IV.SIG SCH ×2 (05:20→21:32)
[2018-01-30] MEDS: Senna/Docusate Sodium 8.6/50 MG Tablet PO SCH ×2 (08:39→21:33)
[2018-01-30] MEDS: Folic Acid 1 MG Tablet PO SCH (08:39)
[2018-01-30] MEDS ORDERED: Naloxone Inj 0.4 MG/ML Vial IV.PUSH PRN (11:05)
[2018-01-30] MEDS ORDERED: oxyCODONE/Acetaminophen 10/325 Tablet PO PRN (11:05)
--- NOTE | 2018-01-30 11:15 | P.HPIM ---
History of Present Illness Service: [facility] Primary Care Physician: No Primary Care Physician Chief Complaint: Back pain lower extremity pain History of Present Illness: 32-year-old male with a history of sickle cell anemia presents to the emergency room complained of worsening lower back pain bilateral lower leg pain along with arm pain over the past 2 days despite taking home oxycodone. He reports this is similar to his previous vaso-occlusive sickle cell pain crisis. He has not had any chills or fevers at this time. He reports he usually responds to IV Dilaudid in addition to his oxycodone for acute pain crisis. He has no other complaints at this time. - Diagnosis (1) Acute sickle cell crisis Inpatient Certification: I certify that the inpatient services were ordered in accordance with Medicare regulations governing the order. This includes certification that hospital inpatient services are reasonable and necessary and in the case of services not specified as inpatient-only under 42 CFR 419.22(n), that they are appropriately provided as inpatient services in accordance to with the 2-midnight benchmark under 43 CFR 412.3(e) Estimated Total Length of Stay (Days): 2 Plans for Post Hospital Care: Not yet determined Review of Systems All other systems reviewed negative except as stated in HPI PMFSH - History History Provided By: Patient - Medical History Medical History: Medical History (Last Updated 01/30/18 @ 11:10 by Dali Yarbrough MD) Gout Sickle cell anemia - Surgical History Surgical History: Surgical History (Last Updated 01/30/18 @ 11:10 by Dali Yarbrough MD) History of cholecystectomy - Family History Family History: Family History (Last Reviewed 01/30/18 @ 11:10 by Dali Yarbrough MD) Father Gout - Social History I have reviewed the patient's Social History: Yes - Tobacco History Second Hand Smoke Exposure: No Tobacco Use In Past 30 Days: No Smoking Status: Never smoker - Alcohol History How Often Do You Have a Drink Containing Alcohol: Monthly or less - Substance Use History Substance History: No History of Abuse - Travel History Recent Travel in the [place] Within the Last 8 Weeks: No Recent Travel Out of the Country Within the Last 8 Weeks: No - Immunization History Tetanus Immunization: Unsure Hx Influenza Vaccine This Season: No Medications and Allergies Active Medications: Active Medications Acetaminophen (Tylenol) 650 mg PO Q4H PRN PRN Reason: Temp > 100.4 Al Hydroxide/Mg Hydroxide (Milk Of Magnesia Liq) 30 ml PO Q12H PRN PRN Reason: Mild Constipation Bisacodyl (Dulcolax Supp) 10 mg RECTAL DAILY PRN PRN Reason: SEVERE CONSITIPATION Folic Acid (Folic Acid) 1 mg PO DAILY [facility] Last Admin: 01/30/18 08:39 Dose: 1 mg Hydromorphone HCl (Dilaudid Pf Inj) 2 mg IV.PUSH Q4HR [facility]IL[facility]O Sodium Chloride (Ns Inj) 1,000 mls @ 0 mls/hr IV.SIG BOLUS [facility] Last Infusion: 01/30/18 05:06 Dose: Infused Sodium Chloride (Ns Inj) 250 mls @ 15 mls/hr IV.SIG ONCE EMILIANO Stop: 01/30/18 21:39 Last Admin: 01/30/18 05:20 Dose: 15 mls/hr Sodium Chloride (Ns Inj) 1,000 mls @ 100 mls/hr IV.CONT .Q10H [facility] Last Admin: 01/30/18 05:19 Dose: 100 mls/hr Lactulose (Lactulose Liq) 30 ml PO DAILY PRN PRN Reason: SEVERE CONSITIPATION Naloxone HCl (Narcan Inj) 0.4 mg IV.PUSH UNSCH PRN PRN Reason: SEE LABEL COMMENTS Ondansetron HCl (Zofran Inj) 4 mg IV.PUSH Q6H PRN PRN Reason: NAUSEA OR VOMITING Oxycodone/Acetaminophen (Percocet 10/325 Mg) 1 tab PO Q6H PRN PRN Reason: PAIN SCALE 6 TO 10 Oxycodone/Acetaminophen (Percocet 5/325 Mg) 1 tab PO Q6H PRN PRN Reason: PAIN SCALE 3 TO 5 Senna/Docusate Sodium (Latrice-Colace) 1 tab PO BID [facility] Last Admin: 01/30/18 08:39 Dose: 1 tab Sennosides (Senokot) 17.2 mg PO Q12H PRN PRN Reason: Moderate Constipation Allergies Allergy/AdvReac Type Severity Reaction Status Date / Time No Known Allergies Allergy Uncoded 11/19/17 12:12 Home Medications Medication Instructions Recorded Confirmed Type folic acid 0.4 mg PO DAILY 01/30/18 01/30/18 History oxycodone 15 mg PO Q8HR PRN 01/30/18 01/30/18 History Exam Vital signs: Vital Signs 01/30/18 01:45 01/30/18 01:48 01/30/18 05:06 Temperature 98.7 F Pulse Rate 93 H Respiratory Rate 16 17 Blood Pressure 160/78 H Pulse Oximetry 01/30/18 05:17 01/30/18 08:00 Temperature 98.7 F 98 F Pulse Rate 76 79 Respiratory Rate 16 16 Blood Pressure 122/68 108/54 L Pulse Oximetry 95 82 L Intake & Output 01/29/18 01/30/18 01/30/18 18:59 06:59 18:59 Intake Total 1000 / 1000 Output Total 700 / 700 Balance 300 / 300 Weight 54.431 kg 64 kg Intake: IV 1000 / 1000 NS Inj 1,000 ML @ Wide Open IV. 1000 / 1000 SIG BOLUS EMILIANO Rx#:[id number] Output: Urine 700 / 700 Other: Date of Last Bowel Movement 01/29/18 Weight On Admission 64 kg Narrative: GENERAL: well-nourished well-developed male no acute distress SKIN: Warm and dry. HEAD: Atraumatic. Normocephalic. EYES: Pupils equal and round. No scleral icterus. No injection or drainage. ENT: No nasal bleeding or discharge. Mucous membranes pink and moist. NECK: Trachea midline. No JVD. CARDIOVASCULAR: Regular rate and rhythm. RESPIRATORY: No accessory muscle use. Clear to auscultation. Breath sounds equal bilaterally. GASTROINTESTINAL: Abdomen soft, non-tender, nondistended. Hepatic and splenic margins not palpable. MUSCULOSKELETAL: Extremities without clubbing, cyanosis, or edema. No obvious deformities. NEUROLOGICAL: Awake and alert to person place time and situation. No obvious cranial nerve deficits. Motor grossly within normal limits. Five out of 5 muscle strength in the arms and legs. Normal speech. PSYCHIATRIC: Appropriate mood and affect; insight and judgment normal. Results - Labs CBC & Chem 7: 01/30/18 02:25 01/30/18 02:25 Labs: Short CBC 01/30/18 Range/Units 02:25 WBC 20.5 H (4.0-11.0) th/mm3 Hgb 6.6 L* (13.0-17.0) gm/dL Hct 18.1 L* (39.0-51.0) % Plt Count 286 (150-450) th/mm3 BMP 01/30/18 02:25 Sodium 137 Potassium 4.9 Chloride 105 Carbon Dioxide 24.6 BUN 32 H Creatinine 1.74 H Calcium 8.5 Liver Function 01/30/18 Range/Units 02:25 Total Bilirubin 15.6 H (0.2-1.0) mg/dL AST 103 H (15-37) U/L ALT 40 (12-78) U/L Alkaline Phosphatase 215 H (45-117) U/L Albumin 3.9 (3.4-5.0) g/dL - Imaging Impressions Chest X-Ray 01/30/18 03:03 CONCLUSION: Cardiomegaly with mild basilar atelectasis. No effusion. Caprini VTE Risk Assessment Caprini VTE Risk Assessment: Moderate/High Risk (score >= 2) Caprini Risk Assessment Model: Point Value = 1 Point Value = 2 Point Value = 3 Point Value = 5 Age 41-60 Minor surgery BMI > 25 kg/m2 Swollen legs Varicose veins or History of unexplained or recurrent spontaneous Oral contraceptives or hormone replacement Sepsis (< 1 month) Serious lung disease, including pneumonia (< 1 month) Abnormal pulmonary function Acute myocardial infarction Congestive heart failure (< 1 month) History of inflammatory bowel disease Medical patient at bed rest Age 61-74 Arthroscopic surgery Major open surgery (> 45 min) Laparoscopic surgery (> 45 min) Malignancy Confined to bed (> 72 hours) Immobilizing plaster cast Central venous access Age >= 75 History of VTE Family history of VTE Factor V Leiden Prothrombin 43833H Lupus anticoagulant Anticardiolipin antibodies Elevated serum homocysteine Heparin-induced thrombocytopenia Other congenital or acquired thrombophilia Stroke (< 1 month) Elective arthroplasty Hip, pelvis, or leg fracture Acute spinal cord injury (< 1 month) Prophylaxis Regimen: Total Risk Factor Score Risk Level Prophylaxis Regimen 0-1 Low Early ambulation 2 Moderate Order ONE of the following: *Sequential Compression Device (SCD) *Heparin 5000 units SQ BID 3-4 Higher Order ONE of the following medications: *Heparin 5000 units SQ TID *Enoxaparin/Lovenox 40 mg SQ daily (WT < 150 kg, CrCl > 30 mL/min) *Enoxaparin/Lovenox 30 mg SQ daily (WT < 150 kg, CrCl > 10-29 mL/min) *Enoxaparin/Lovenox 30 mg SQ BID (WT < 150 kg, CrCl > 30 mL/min) AND/OR *Sequential Compression Device (SCD) 5 or more Highest Order ONE of the following medications: *Heparin 5000 units SQ TID (Preferred with Epidurals) *Enoxaparin/Lovenox 40 mg SQ daily (WT < 150 kg, CrCl > 30 mL/min) *Enoxaparin/Lovenox 30 mg SQ daily (WT < 150 kg, CrCl > 10-29 mL/min) *Enoxaparin/Lovenox 30 mg SQ BID (WT < 150 kg, CrCl > 30 mL/min) AND *Sequential Compression Device (SCD) Assessment and Plan - Assessment (1) Acute sickle cell crisis Code(s): D57.00 - Hb-SS disease with crisis, unspecified Status: Acute - Plan 32-year-old male with a history of sickle cell anemia presents with 1. Sickle cell pain crisis-IV fluid hydration with IV Dilaudid as needed for pain control. Safe use of opiates discussed with the patient today. Add bowel regimen. 2. Acute anemia with a history of sickle cell anemia-transfuse 2 units of packed red blood cell. 3. DVT prophylaxisLovenox. H&P: Quality - VTE Deep Vein Thrombosis/Pulmonary Embolism Present on Admission: No
[2018-01-30] MEDS: HYDROmorphone PF Inj 1 MG/ML Ampul IV.PUSH PRN ×3 (11:41→21:48)
[2018-01-30] MEDS: Enoxaparin Inj 40 MG/0.4 ML Syringe SQ SCH (11:48)
[2018-01-30] MEDS ORDERED: Acetaminophen 325 MG Tablet PO ONE (19:00)
[2018-01-30] MEDS ORDERED: Sodium Chlor 0.9% Inj 250 ML IV.SIG SCH (19:00)
--- NOTE | 2018-01-30 20:27 | MB ---
cc: Lashay Salgado MD,Dali DONIS DATE: 01/30/2018 DATE OF SERVICE: 01/30/2018 REFERRING PHYSICIAN: Dali Yarbrough MD CHIEF COMPLAINT: Dr. Yarbrough requested a consultation for Mr. Miguelangel Lynn regarding sickle cell disease. HISTORY OF PRESENT ILLNESS: Mr. Miguelangel Lynn is a 32-year-old man originally from [place]. He had a name change and it has been corrected. His records have been merged. 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 His course has been complicated by gouty arthritis of the right knee and priapism. He has been lost to followup and was seen in 10/2017 to reestablish care in clinic. He is on chronic pain regimen, oxycodone on a p.r.n. basis. He was followed by pain specialist in [place]. He recently transferred his care. He was last seen in hematology clinic on 12/11/2017. He has received a prescription for pain medication in December. He was pending an appointment the day of his admission. Mr. Miguelangel Lynn complains of significant fatigue. He feels very weak. He was so weak he was unable to even make eggs for breakfast. He has pains which are somewhat controlled on his p.r.n. pain medication. He recognizes that the pain, however, has been persistent and ongoing over the last 3 days. He presented to the emergency room, was seen by Dr. Isaak Bunn. He is found to have microcytic anemia with hemoglobin of 6.6 and acute renal insufficiency with a BUN of 32, creatinine 1.7. His bilirubin was significantly elevated at 15.6. LDH is not available. He was admitted promptly and was given IV fluid hydration. He received 1 unit of packed red cells. He still feels weak. He feels just a lack of energy. His pain is controlled on p.r.n. medication. He denies any nausea or vomiting. He has not had a bowel movement since yesterday. He denies any urinary complaints. There were no complications of his priapism. He feels that the right knee is beginning to swell with his arthritis. He admits to taking ibuprofen more so over the past week. This may have contributed to his renal insufficiency. He denies any bleeding. PAST MEDICAL HISTORY: Chronic anemia, gouty arthritis, sickle cell thalassemia, recurrent priapism, right knee effusion/gout. PAST SURGICAL HISTORY: Cholecystectomy, joint aspiration. ALLERGIES: NO KNOWN DRUG ALLERGIES. FAMILY HISTORY: Significant for both parents are alive. There is no significant family history of cancer. SOCIAL HISTORY: He is a student. He has returned to the [email or web address] to finish his studies. He drinks occasionally. He never smoked. ALLERGIES: NO KNOWN DRUG ALLERGIES. CURRENT MEDICATIONS: 1. Acetaminophen. 2. Milk of magnesia. 3. Dulcolax. 4. Benadryl p.r.n. 5. Lovenox. 6. Folic acid. 7. Hydromorphone p.r.n. 8. Lactulose. 10. Naloxone. 11. Ondansetron. 12. Roxicodone. 11. Percocet. PHYSICAL EXAMINATION: VITAL SIGNS: Temperature 97.9, heart rate 58, respiratory rate 16, blood pressure 104/59, saturation 95%. Mr. Miguelangel Lynn is a well-developed, well-nourished man with history of sickle cell disease. HEENT: His pupils are round, reactive to light and accommodation. Sclerae is icteric. Oropharynx is dry. NECK: Supple. LUNGS: Clear anteriorly. CARDIOVASCULAR: Reveals a normal rate and rhythm. ABDOMEN: Flat and benign. EXTREMITIES: Lower extremity with asymmetry right knee with effusion compared to the left. No lower extremity edema. Good pulses. NEUROLOGIC: Nonfocal. LABORATORY DATA: Hemoglobin is 6.6. Chemistry: BUN of 32, creatinine 1.74. ASSESSMENT AND PLAN: Mr. Miguelangel Lynn is a 32-year-old man with sickle thalassemia. He has chronic anemia secondary to sickle cell disease. His course is further complicated by recurrent priapism. Now, he has new gouty arthritis of the right knee. He has acute vasoocclusive pain crises. It is probably masked by his chronic pain medication. He noticed increasing weakness and fatigue for 3 days that finally prompted him to come in. He was found in acute renal failure with a creatinine of 1.74 and severe anemia with hemoglobin of 6.6. I suspect that his baseline hemoglobin is probably lower. He is clinically dry. He received 1 unit of packed red cells. A second unit is ordered. Blood bank will be alerted. His old records with his antibodies have been merged. He is receiving blood. Supportive treatment continues. The pain medication was given. We will monitor the content of his Tylenol intake. He is having no urinary complaints. We will schedule the lactulose until bowel movements. No aspiration is needed for the right knee. We were able to treat it conservatively on his last admission. We will monitor for fevers. His questions were answered to his satisfaction. MD ANALI Flaherty/lc/do , 06:49 PM , 07:05 PM KATHY
[2018-01-31] MEDS: HYDROmorphone PF Inj 1 MG/ML Ampul IV.PUSH PRN (03:01)
[2018-01-31] MEDS: Sod Chloride 0.9% Inj 1,000 ML IV.CONT SCH ×3 (03:02→23:16)
[2018-01-31] MEDS: Sod Chloride 0.9% Inj 1,000 ML IV.SIG SCH (03:02)
[2018-01-31 06:37] LABS: Reticulocyte Percent 15.9 % (0.4-3.0)
[2018-01-31 07:02] LABS: Baso # (Auto) 0.2 th/mm3 (0.0-0.2); Baso % (Auto) 1.7 % (0.0-2.0); Eos % (Auto) 7.5 % (0.0-4.0); Hematocrit 26.3 % (39.0-51.0); Hemoglobin 9.4 gm/dL (13.0-17.0); Lymph # (Auto) 3.9 th/mm3 (1.0-4.8); Lymph % (Auto) 28.3 % (9.0-44.0); Mean Corpuscular HGB Conc 35.5 % (32.0-36.0); Mean Corpuscular Hemoglobin 29.9 pg (27.0-34.0); Mean Corpuscular Volume 84.2 fL (80.0-100.0); Mean Platelet Volume 8.3 fL (7.0-11.0); Mono # (Auto) 1.9 th/mm3 (0.0-0.9); Mono % (Auto) 13.4 % (0.0-8.0); Neut # (Auto) 6.8 th/mm3 (1.8-7.7); Neut % (Auto) 49.1 % (16.0-70.0); Platelet Count 258 th/mm3 (150-450); Red Blood Count 3.13 mil/mm3 (4.50-5.90); Red Cell Distribution Width 24.9 % (11.6-17.2); White Blood Count 13.9 th/mm3 (4.0-11.0)
[2018-01-31 07:21] LABS: Alanine Aminotransferase 35 U/L (12-78); Albumin 3.4 g/dL (3.4-5.0); Alkaline Phosphatase 199 U/L (45-117); Anion Gap 7 meq/L (5-15); Aspartate Aminotransferase 80 U/L (15-37); Blood Urea Nitrogen 25 mg/dL (7-18); Calcium 8.4 mg/dL (8.5-10.1); Chloride 110 meq/L (98-107); Glomerular Filtration Rate 77 mL/min (>89); Glucose,Random 94 mg/dL (74-106); Lactate Dehydrogenase 900 U/L (87-241); Potassium 4.8 meq/L (3.5-5.1); Sodium 144 meq/L (136-145); Total Protein 7.3 g/dL (6.4-8.2)
[2018-01-31 08:02] LABS: Eosinophils 6 % (0-4); Lymphocytes 24 % (9-44); Monocytes 15 % (0-8); Tallied Nucleated RBC 12 (0-0)
[2018-01-31 08:04] LABS: Pappenheimer Bodies Present; Platelet Estimate Normal (Normal); Platelet Morphology Normal (Normal); Polychromasia 4.4 % (0.0-1.9); Sickle Cells 2+; Target Cells 2+
[2018-01-31 08:05] LABS: Howell-Jolly Bodies Present
[2018-01-31] MEDS: Folic Acid 1 MG Tablet PO SCH (08:24)
[2018-01-31] MEDS: Senna/Docusate Sodium 8.6/50 MG Tablet PO SCH ×2 (08:24→21:59)
--- NOTE | 2018-01-31 09:38 | P.PNIM ---
Subjective Interval history: Reports he needs Dilaudid at least every 4 hours with may be using oxycodone in between every 2 hours. This regimen has helped in the past when he has sickle cell crisis. Physical Exam Vital signs: Vital Signs 01/30/18 12:11 01/30/18 12:33 01/30/18 12:56 Temperature 97.7 F 97.8 F Pulse Rate 75 70 Respiratory Rate 18 18 18 Blood Pressure 108/55 L 112/62 Pulse Oximetry 91 L 93 L 01/30/18 15:59 01/30/18 16:00 01/30/18 16:15 Temperature 97.9 F 97.9 F 97.2 F L Pulse Rate 58 L 58 L 66 Respiratory Rate 16 16 17 Blood Pressure 104/59 L 104/59 L 108/60 Pulse Oximetry 95 95 96 01/30/18 20:00 01/30/18 22:09 01/30/18 22:18 Temperature 98.3 F 98.3 F Pulse Rate 63 63 60 Respiratory Rate 16 18 Blood Pressure 108/53 L 100/57 L Pulse Oximetry 95 93 L 01/30/18 22:23 01/30/18 22:40 01/31/18 00:00 Temperature 98.3 F 98.1 F 98.2 F Pulse Rate 63 56 L 58 L Respiratory Rate 18 20 18 Blood Pressure 115/63 101/60 112/57 L Pulse Oximetry 94 L 95 01/31/18 00:12 01/31/18 02:03 01/31/18 02:57 Temperature 98.5 F Pulse Rate 56 L 51 L 63 Respiratory Rate 18 Blood Pressure 136/74 158/82 H Pulse Oximetry 01/31/18 03:02 01/31/18 03:45 01/31/18 04:00 Temperature 98.6 F Pulse Rate 56 L 61 Respiratory Rate 18 18 Blood Pressure 158/82 H Pulse Oximetry 97 01/31/18 08:00 Temperature 98.0 F Pulse Rate 47 L Respiratory Rate 16 Blood Pressure 132/70 Pulse Oximetry 97 Intake & Output 01/30/18 01/31/18 01/31/18 18:59 06:59 18:59 Intake Total 2120 / 2120 1830 / 1830 Output Total 900 / 900 1050 / 1050 Balance 1220 / 1220 780 / 780 Weight 64 kg 66.5 kg Intake: IV 1000 / 1000 1250 / 1250 NS Inj 1,000 ML @ 100 mls/hr IV 1000 / 1000 1000 / 1000 .CONT .Q10H EMILIANO Rx#:[id number] NS Inj 250 ML @ 15 mls/hr IV. 250 / 250 SIG ONCE EMILIANO Rx#:[id number] Oral 720 / 720 480 / 480 Other 100 / 100 Rbc As-3 Leukoreduced Unit 100 / 100 [id number] Intake (Blood Product) Amt 400 / 400 0 / 0 Rbc As-3 Leukoreduced Unit 0 / 0 [id number] Rbc As-3 Leukoreduced Unit 400 / 400 [id number] Output: Urine 900 / 900 1050 / 1050 Other: # Voids 1,250 Date of Last Bowel Movement 01/29/18 01/29/18 # Bowel Movements 0 Weight On Admission 64 kg Narrative: GENERAL: This is a well-nourished, well-developed patient, in no apparent distress. CARDIOVASCULAR: Regular rate and rhythm without murmurs, gallops, or rubs. RESPIRATORY: Clear to auscultation. Breath sounds equal bilaterally. No wheezes , rales, or rhonchi. GASTROINTESTINAL: Abdomen soft, non-tender, nondistended. Normal active bowel sounds MUSCULOSKELETAL: Extremities without clubbing, cyanosis, or edema. NEURO: Alert & Oriented x4 to person, place, time, situation. Moves all ext x4 Results - Labs CBC & Chem 7: 01/31/18 05:20 01/31/18 05:20 Laboratory Results - last 24 hr 01/30/18 01/30/18 01/31/18 03:45 18:36 05:20 WBC RBC Hgb Hct MCV MCH MCHC RDW Plt Count MPV Prelim Diff (Auto) Neut % (Auto) Lymph % (Auto) [place] % (Auto) Eos % (Auto) Baso % (Auto) Neut # (Auto) Lymph # (Auto) [place] # (Auto) Eos # (Auto) Baso # (Auto) WBC Differential Seg Neuts % (Manual) Band Neuts % (Manual) Lymphocytes % (Manual) Monocytes % (Manual) Eosinophils % (Manual) Abs Neuts (Manual) Nucleated RBCs/100 WBC Differential Comment Platelet Estimate Platelet Morphology Polychromasia Pappenheimer Bodies Sickle Cells Target Cells [place] Bodies Retic Count 15.9 H Absolute Retic 494.3 H Sodium Potassium Chloride Carbon Dioxide Anion Gap BUN Creatinine Estimated GFR Random Glucose Calcium Total Bilirubin Direct Bilirubin Indirect Bilirubin AST ALT Alkaline Phosphatase Lactate Dehydrogenase Total Protein Albumin Blood Type O Positive Antibody Screen Negative MTS Gel Crossmatch See Detail See Detail 01/31/18 01/31/18 05:20 05:20 WBC 13.9 H RBC 3.13 L Hgb 9.4 L D Hct 26.3 L MCV 84.2 D MCH 29.9 MCHC 35.5 RDW 24.9 H Plt Count 258 MPV 8.3 Prelim Diff (Auto) Slide review pending Neut % (Auto) 49.1 Lymph % (Auto) 28.3 [place] % (Auto) 13.4 H Eos % (Auto) 7.5 H Baso % (Auto) 1.7 Neut # (Auto) 6.8 Lymph # (Auto) 3.9 [place] # (Auto) 1.9 H Eos # (Auto) 1.0 H Baso # (Auto) 0.2 WBC Differential Manual diff final Seg Neuts % (Manual) 54 Band Neuts % (Manual) 1 Lymphocytes % (Manual) 24 Monocytes % (Manual) 15 H Eosinophils % (Manual) 6 H Abs Neuts (Manual) 7.6 Nucleated RBCs/100 WBC 12 H Differential Comment . Platelet Estimate Normal Platelet Morphology Normal Polychromasia 4.4 H Pappenheimer Bodies Present H Sickle Cells 2+ H Target Cells 2+ H [place] Bodies Present H Retic Count Absolute Retic Sodium 144 Potassium 4.8 Chloride 110 H Carbon Dioxide 27.0 Anion Gap 7 BUN 25 H Creatinine 1.30 Estimated GFR 77 L Random Glucose 94 Calcium 8.4 L Total Bilirubin 11.0 H Direct Bilirubin 0.8 H Indirect Bilirubin 10.2 H AST 80 H ALT 35 Alkaline Phosphatase 199 H Lactate Dehydrogenase 900 H Total Protein 7.3 D Albumin 3.4 Blood Type Antibody Screen MTS Gel Crossmatch Assessment and Plan - Assessment (1) Acute sickle cell crisis Code(s): D57.00 - Hb-SS disease with crisis, unspecified Status: Acute - Plan 32-year-old male with a history of sickle cell anemia presents with 1. Sickle cell pain crisis-IV fluid hydration with IV Dilaudid and oxycodone as needed for pain control. Safe use of opiates discussed with the patient. Add bowel regimen. 2. Acute anemia with a history of sickle cell anemia-status post 1 unit of packed red blood cell transfusion with improved hemoglobin. 3. DVT prophylaxisLovenox. Discharge Planning: Discharge to home when pain better controlled.
[2018-01-31] MEDS: HYDROmorphone PF Inj 2 MG/ML Vial IV.PUSH SCH ×4 (09:53→21:59)
[2018-01-31] MEDS: Enoxaparin Inj 40 MG/0.4 ML Syringe SQ SCH (12:14)
[2018-02-01] MEDS: HYDROmorphone PF Inj 2 MG/ML Vial IV.PUSH SCH ×6 (01:56→21:54)
[2018-02-01] MEDS: Sod Chloride 0.9% Inj 1,000 ML IV.CONT SCH ×4 (01:58→17:43)
[2018-02-01] MEDS: Senna/Docusate Sodium 8.6/50 MG Tablet PO SCH ×2 (10:02→21:54)
[2018-02-01] MEDS: Folic Acid 1 MG Tablet PO SCH (10:03)
[2018-02-01] MEDS: Enoxaparin Inj 40 MG/0.4 ML Syringe SQ SCH (11:16)
--- NOTE | 2018-02-01 12:39 | P.PNIM ---
Subjective Interval history: Pain has improved with IV Dilaudid. He is getting up to ambulate better. Would like to stay another day prior to transition to oral medication and discharged home. Physical Exam Vital signs: Vital Signs 01/31/18 14:54 01/31/18 16:00 01/31/18 18:11 Temperature 97.5 F L Pulse Rate 63 Respiratory Rate 18 16 18 Blood Pressure 115/66 Pulse Oximetry 96 01/31/18 20:00 02/01/18 00:00 02/01/18 04:00 Temperature 97.7 F 98.5 F 98.1 F Pulse Rate 67 80 58 L Respiratory Rate 18 18 17 Blood Pressure 143/74 H 120/71 140/78 Pulse Oximetry 96 96 98 02/01/18 08:00 02/01/18 10:33 02/01/18 12:00 Temperature 97.6 F 98.0 F Pulse Rate 63 53 L Respiratory Rate 14 18 16 Blood Pressure 118/67 126/64 Pulse Oximetry 92 L 98 Intake & Output 01/31/18 02/01/18 02/01/18 18:59 06:59 18:59 Intake Total 1780 / 1780 2200 / 2200 480 / 480 Output Total 1600 / 1600 Balance 1780 / 1780 600 / 600 480 / 480 Weight 65.6 kg Intake: IV 1300 / 1300 1420 / 1420 480 / 480 NS Inj 1,000 ML @ 100 mls/hr IV 1000 / 1000 1420 / 1420 480 / 480 .CONT .Q10H EMILIANO Rx#:[id number] NS Inj 1,000 ML @ Wide Open IV. 300 / 300 SIG BOLUS [facility] Rx#:[id number] NS Inj 250 ML @ 15 mls/hr IV. 0 / 0 SIG ONCE EMILIANO Rx#:[id number] Oral 480 / 480 780 / 780 Output: Urine 1600 / 1600 Other: # Voids 3 Date of Last Bowel Movement 01/30/18 02/01/18 02/01/18 # Bowel Movements 0 1 Narrative: GENERAL: This is a well-nourished, well-developed patient, in no apparent distress. CARDIOVASCULAR: Regular rate and rhythm without murmurs, gallops, or rubs. RESPIRATORY: Clear to auscultation. Breath sounds equal bilaterally. No wheezes , rales, or rhonchi. GASTROINTESTINAL: Abdomen soft, non-tender, nondistended. Normal active bowel sounds MUSCULOSKELETAL: Extremities without clubbing, cyanosis, or edema. NEURO: Alert & Oriented x4 to person, place, time, situation. Moves all ext x4 Results - Labs CBC & Chem 7: 01/31/18 05:20 01/31/18 05:20 Assessment and Plan - Assessment (1) Acute sickle cell crisis Code(s): D57.00 - Hb-SS disease with crisis, unspecified Status: Acute - Plan 32-year-old male with a history of sickle cell anemia presents with 1. Sickle cell pain crisis-IV fluid hydration with IV Dilaudid and oxycodone as needed for pain control. Safe use of opiates discussed with the patient. Add bowel regimen. We will transition off IV Dilaudid in the morning for discharge planning to home. 2. Acute anemia with a history of sickle cell anemia-status post 1 unit of packed red blood cell transfusion with improved hemoglobin. 3. DVT prophylaxisLovenox. Discharge Planning: Likely can be discharged home in the morning.
[2018-02-02] MEDS: HYDROmorphone PF Inj 2 MG/ML Vial IV.PUSH SCH ×4 (01:55→15:35)
[2018-02-02 05:34] VITALS: RESP 16
[2018-02-02] MEDS: Sod Chloride 0.9% Inj 1,000 ML IV.CONT SCH ×2 (06:07→15:34)
[2018-02-02] MEDS: Folic Acid 1 MG Tablet PO SCH (08:47)
[2018-02-02] MEDS: Senna/Docusate Sodium 8.6/50 MG Tablet PO SCH (08:47)
--- NOTE | 2018-02-02 09:39 | P.PN ---
Subjective Interval history: Patient doing well overnight, reports pain resolved. Patient is tolerating p.o. , voiding/stooling well. No overnight events per RN. Physical Exam Vital signs: Vital Signs 02/01/18 10:33 02/01/18 12:00 02/01/18 14:41 Temperature 98.0 F Pulse Rate 53 L Respiratory Rate 18 16 18 Blood Pressure 126/64 Pulse Oximetry 98 02/01/18 16:00 02/01/18 18:14 02/01/18 20:00 Temperature 98.2 F 98.1 F Pulse Rate 45 L 62 Respiratory Rate 16 18 20 Blood Pressure 123/62 128/66 Pulse Oximetry 98 98 02/01/18 23:40 02/02/18 00:00 02/02/18 04:00 Temperature 98.1 F 98.2 F Pulse Rate 62 56 L 56 L Respiratory Rate 18 16 Blood Pressure 138/75 124/71 Pulse Oximetry 95 94 L 02/02/18 08:42 Temperature 97.5 F L Pulse Rate 54 L Respiratory Rate 16 Blood Pressure 125/75 Pulse Oximetry 95 Intake & Output 02/01/18 02/02/18 02/02/18 18:59 06:59 18:59 Intake Total 480 / 480 1300 / 1300 Output Total 1100 / 1100 1000 / 1000 Balance -620 / -620 300 / 300 Intake: IV 480 / 480 580 / 580 NS Inj 1,000 ML @ 100 mls/hr IV 480 / 480 580 / 580 .CONT .Q10H EMILIANO Rx#:[id number] Oral 720 / 720 Output: Urine 1100 / 1100 1000 / 1000 Other: Date of Last Bowel Movement 02/01/18 02/01/18 02/01/18 # Bowel Movements 1 Narrative: GENERAL: This is a thin -[place] male, in NAD, lying comfortably in bed , patient was asleep on my arrival but easily arousable CARDIOVASCULAR: Regular rate and rhythm without murmurs, gallops, or rubs. RESPIRATORY: Clear to auscultationx2 GASTROINTESTINAL: Abdomen soft, non-tender, nondistended. Normal active bowel sounds MUSCULOSKELETAL: Extremities without clubbing, cyanosis, or edema. NEURO: Alert & Oriented x4 to person, place, time, situation. Moves all ext x4 Results - Labs CBC & Chem 7: 01/31/18 05:20 01/31/18 05:20 Assessment and Plan - Assessment (1) Acute sickle cell crisis Code(s): D57.00 - Hb-SS disease with crisis, unspecified Status: Acute - Plan 32-year-old AA Male with a PMHX of sickle cell anemia admitted for inpatient management of pain due to sickle cell crisis, HD #4 1. Sickle cell pain crisis, sx resolved s/p IV fluid hydration and FA s/p IV Dilaudid Cont. Oxycodone as needed for pain control Safe use of opiates discussed with the patient Stable for discharge today pending CBC 2. Acute anemia with a history of sickle cell anemia s/p 1 unit of packed red blood cell transfusion with improved hemoglobin (6.6 on admission) F/U CBC this AM 3. DVT prophylaxis Cont. Lovenox 4. Dispo: Stable for discharge today pending AM CBC Code Status: full Discussed Condition With: Patient, RN, case worker
[2018-02-02 11:39] LABS: Hematocrit 27.7 % (39.0-51.0); Hemoglobin 9.9 gm/dL (13.0-17.0); Mean Corpuscular HGB Conc 35.6 % (32.0-36.0); Mean Corpuscular Hemoglobin 30.5 pg (27.0-34.0); Mean Corpuscular Volume 85.7 fL (80.0-100.0); Mean Platelet Volume 8.4 fL (7.0-11.0); Platelet Count 261 th/mm3 (150-450); Red Blood Count 3.23 mil/mm3 (4.50-5.90); Red Cell Distribution Width 23.8 % (11.6-17.2); White Blood Count 10.9 th/mm3 (4.0-11.0)
[2018-02-02] MEDS: Enoxaparin Inj 40 MG/0.4 ML Syringe SQ SCH (11:41)
[2018-02-02 12:21] LABS: Eosinophils 9 % (0-4); Lymphocytes 24 % (9-44); Monocytes 5 % (0-8); Pappenheimer Bodies Present; Sickle Cells 2+; Tallied Nucleated RBC 3 (0-0)
[2018-02-02 12:23] LABS: Howell-Jolly Bodies Present; Platelet Estimate Normal (Normal)
[2018-02-02 13:12] VITALS: BP 138/83; PULSE 60; TEMP 98.1; O2SAT 93
--- NOTE | 2018-02-02 13:40 | P.DS ---
Date of admission: 01/30/18 05:06 Primary care physician: No Primary Care Physician Brief History from admission: This is a 32-year-old AAM with a PMHx of Sickle cell anemia who presented to the emergency room complaining of worsening lower back pain and bilateral lower leg pain x2 days despite taking home oxycodone. Patient reported sx similar to his previous vaso-occlusive sickle cell pain crisis. Denied recent illness, fever, and chills. DS: Diagnosis - Discharge Diagnosis (1) Acute sickle cell crisis Status: Acute DS: Summary Hospital Course: 32-year-old AA Male with a PMHx of Sickle cell anemia admitted for inpatient management of pain due to sickle cell crisis. Patient was managed with IVF's and Dilaudid PRN pain. Patient was weaned off of Dilaudid on the day of discharge and transitioned to Oxycodone PRN which is a home meds for him for Chronic Back Pain. Of note, patient required 1U pRBC's due to Hgb 6.6 on 01/30. Hgb improved to 9.4 on 01/31 and remained stable at 9.9 this AM. Patient was advised to keep F/U appt. with Hem as OP on Friday and to hydrate well. - Time Spent with Patient Total time spent providing and/or coordinating discharge services: Greater than 30 minutes - Quality: VTE Deep Vein Thrombosis/Pulmonary Embolism Present on Admission: No Exam Vital signs: Vital Signs 02/01/18 14:41 02/01/18 16:00 02/01/18 18:14 Temperature 98.2 F Pulse Rate 45 L Respiratory Rate 18 16 18 Blood Pressure 123/62 Pulse Oximetry 98 02/01/18 20:00 02/01/18 23:40 02/02/18 00:00 Temperature 98.1 F 98.1 F Pulse Rate 62 62 56 L Respiratory Rate 20 18 Blood Pressure 128/66 138/75 Pulse Oximetry 98 95 02/02/18 04:00 02/02/18 08:42 02/02/18 12:00 Temperature 98.2 F 97.5 F L 98.1 F Pulse Rate 56 L 54 L 60 Respiratory Rate 16 16 16 Blood Pressure 124/71 125/75 138/83 Pulse Oximetry 94 L 95 93 L Intake & Output 02/01/18 02/02/18 02/02/18 18:59 06:59 18:59 Intake Total 480 / 480 1300 / 1300 Output Total 1100 / 1100 1000 / 1000 Balance -620 / -620 300 / 300 Intake: IV 480 / 480 580 / 580 NS Inj 1,000 ML @ 100 mls/hr IV 480 / 480 580 / 580 .CONT .Q10H EMILIANO Rx#:[id number] Oral 720 / 720 Output: Urine 1100 / 1100 1000 / 1000 Other: Date of Last Bowel Movement 02/01/18 02/01/18 02/01/18 # Bowel Movements 1 Narrative: GENERAL: This is a thin -Hungarian male, in NAD, lying comfortably in bed , patient was asleep on my arrival but easily arousable CARDIOVASCULAR: Regular rate and rhythm without murmurs, gallops, or rubs. RESPIRATORY: Clear to auscultationx2 GASTROINTESTINAL: Abdomen soft, non-tender, nondistended. Normal active bowel sounds MUSCULOSKELETAL: Extremities without clubbing, cyanosis, or edema. NEURO: Alert & Oriented x4 to person, place, time, situation. Moves all ext x4 Results Procedures completed during hospitalization: n/a Labs on day of discharge: Labs from last 24 hours 02/02/18 11:02 WBC 10.9 RBC 3.23 L Hgb 9.9 L Hct 27.7 L MCV 85.7 MCH 30.5 MCHC 35.6 RDW 23.8 H Plt Count 261 MPV 8.4 Prelim Diff (Auto) Manual diff required WBC Differential Manual diff final Seg Neuts % (Manual) 61 Lymphocytes % (Manual) 24 Monocytes % (Manual) 5 Eosinophils % (Manual) 9 H Basophils % (Manual) 1 Abs Neuts (Manual) 6.6 Nucleated RBCs/100 WBC 3 H Differential Comment . Platelet Estimate Normal Platelet Morphology Enlarged H Pappenheimer Bodies Present H Sickle Cells 2+ H Chavarria-[place] Bodies Present H - Impressions ITS Impressions Chest X-Ray 01/30/18 03:03 CONCLUSION: Cardiomegaly with mild basilar atelectasis. No effusion. Discharge Plan - Discharge Disposition Patient Disposition: 01 Discharge Home - Discharge Condition Condition: Good - Discharge Order Discharge Orders: Discharge Order (Routine); Ordered 02/02/18 Ordered By: Sherie Nolasco - Discharge Details Anticipated Discharge Date: 02/02/18 - Physicians Team Primary Care Provider: Primary Care Cotyi,Joanna Attending Provider: Gaurav,Sherie Other Providers: Lashay Salgado MD
--- NOTE | 2018-02-02 15:37 | P.PNONC ---
Subjective Interval history: Afebrile "I am feeling so much better" Denies chest pain or shortness of breath Having pain in his shoulders, back and legs but states this is much improved Patient reports he is ready to go home Is tolerating his pain on only oral pain medication Reports he has follow-up with Dr. Salgado in clinic this week Objective Vital Signs/Intake & Output: Vital Signs 02/01/18 16:00 02/01/18 18:14 02/01/18 20:00 Temperature 98.2 F 98.1 F Pulse Rate 45 L 62 Respiratory Rate 16 18 20 Blood Pressure 123/62 128/66 Pulse Oximetry 98 98 02/01/18 23:40 02/02/18 00:00 02/02/18 04:00 Temperature 98.1 F 98.2 F Pulse Rate 62 56 L 56 L Respiratory Rate 18 16 Blood Pressure 138/75 124/71 Pulse Oximetry 95 94 L 02/02/18 08:42 02/02/18 12:00 Temperature 97.5 F L 98.1 F Pulse Rate 54 L 60 Respiratory Rate 16 16 Blood Pressure 125/75 138/83 Pulse Oximetry 95 93 L Intake & Output 02/01/18 02/02/18 02/02/18 18:59 06:59 18:59 Intake Total 480 / 480 1300 / 1300 Output Total 1100 / 1100 1000 / 1000 Balance -620 / -620 300 / 300 Intake: IV 480 / 480 580 / 580 NS Inj 1,000 ML @ 100 mls/hr IV 480 / 480 580 / 580 .CONT .Q10H EMILIANO Rx#:[id number] Oral 720 / 720 Output: Urine 1100 / 1100 1000 / 1000 Other: Date of Last Bowel Movement 02/01/18 02/01/18 02/01/18 # Bowel Movements 1 Result Diagrams: 02/02/18 11:02 01/31/18 05:20 Laboratory Results: Laboratory Results - last 24 hr 02/02/18 11:02 WBC 10.9 RBC 3.23 L Hgb 9.9 L Hct 27.7 L MCV 85.7 MCH 30.5 MCHC 35.6 RDW 23.8 H Plt Count 261 MPV 8.4 Prelim Diff (Auto) Manual diff required WBC Differential Manual diff final Seg Neuts % (Manual) 61 Lymphocytes % (Manual) 24 Monocytes % (Manual) 5 Eosinophils % (Manual) 9 H Basophils % (Manual) 1 Abs Neuts (Manual) 6.6 Nucleated RBCs/100 WBC 3 H Differential Comment . Platelet Estimate Normal Platelet Morphology Enlarged H Pappenheimer Bodies Present H Sickle Cells 2+ H Chavarria-[place] Bodies Present H Medications: Active Medications Generic Name Dose Route Start Last Admin Trade Name Freq PRN Reason Stop Dose Admin Enoxaparin Sodium 40 mg 01/30/18 12:00 02/02/18 11:41 Lovenox Inj SQ 40 mg Q24H EMILIANO Administration Folic Acid 1 mg 01/30/18 09:00 02/02/18 08:47 Folic Acid PO 1 mg DAILY EMILIANO Administration Hydromorphone HCl 2 mg 01/31/18 10:00 02/02/18 10:21 Dilaudid Pf Inj IV.PUSH Not Given Q4H EMILIANO Sodium Chloride 1,000 mls @ 0 mls/hr 01/30/18 03:15 01/31/18 07:00 Ns Inj IV.SIG Infused BOLUS EMILIANO Infusion Wide Open Sodium Chloride 1,000 mls @ 100 mls/hr 01/30/18 05:15 02/02/18 06:07 Ns Inj IV.CONT 100 mls/hr .Q10H EMILIANO Administration Oxycodone HCl 15 mg 01/30/18 15:13 01/31/18 08:24 Roxicodone PO 15 mg Q4H PRN Administration pain 6 to 10 Senna/Docusate Sodium 1 tab 01/30/18 09:00 02/02/18 08:47 Latrice-Colace PO 1 tab BID EMILIANO Administration Objective Remarks: GENERAL: Well-nourished, well-developed patient. SKIN: Warm and dry. HEAD: Normocephalic. EYES: No scleral icterus. No injection or drainage. NECK: Supple, trachea midline. No JVD or lymphadenopathy. CARDIOVASCULAR: Regular rate and rhythm without murmurs. RESPIRATORY: Breath sounds equal bilaterally. No accessory muscle use. GASTROINTESTINAL: Abdomen soft, non-tender, nondistended. EXTREMITIES: No cyanosis, or edema. MUSCULOSKELETAL: Adequate muscle tone. NEUROLOGICAL: No obvious focal deficit. Awake, alert, and oriented x3. Assessment/Plan - Plan 32-year-old male admitted with sickle cell crisis 1. Noted his hemoglobin is up to 9.9 today. 2. Instructed patient to continue to increase his fluids and keep his follow- up appointment with Dr. Salgado on Friday of this week. 3. Clear for discharge from hematology standpoint.
== END 2018-02-02 17:20 | disposition home or self-care (01) ==
LOC: NEPE 01:43 → NEDA 05:06 → N06 06:15
PROVIDERS: ADMIT Family Medicine; ATTEND Family Medicine

== ENCOUNTER 2018-06-06 03:03 | Inpatient (IN) ==
[2018-06-06] MEDS ORDERED: HYDROmorphone PF Inj 1 MG/ML Ampul IV.PUSH ONE (03:33)
[2018-06-06] MEDS ORDERED: Sod Chloride 0.9% Inj 1,000 ML IV.SIG SCH (03:45)
--- NOTE | 2018-06-06 03:51 | ED ---
HPI General Chief complaint: Sickle Cell Stated complaint: Fever Time Seen by Provider: 06/06/18 03:29 Source: patient Mode of arrival: ambulatory Limitations: no limitations History of Present Illness HPI narrative: 33 yo M c/o back pain and R leg pain c/w typical sick cell related pain. + Subjective fever reported. Pain duration approximately 1 day. Onset gradual. Timing constant. Compliance with folic acid reported. Pt follows with Dr Salgado for hematology. No vomiting. Related Data Home Medications Medication Instructions Recorded Confirmed folic acid 0.4 mg PO DAILY 01/30/18 06/06/18 oxycodone 10 mg PO Q8HR PRN 01/30/18 06/06/18 allopurinol 300 mg PO DAILY 06/06/18 06/06/18 Allergies Allergy/AdvReac Type Severity Reaction Status Date / Time No Known Allergies Allergy Verified 06/06/18 03:09 Review of Systems ROS: all other systems reviewed are negative PMFSH Social History Social History Substance History: No History of Abuse Second Hand Smoke Exposure: No Smoking Status: Never smoker How Often Do You Have a Drink Containing Alcohol: Monthly or less Recent Travel in [facility] within the Last 8 Weeks: No Recent Out of Country Travel within the Last 8 Weeks: No Immunization History Tetanus Immunization: Unsure Exam Narrative Exam Narrative: GENERAL: 33-year-old male well-nourished well-developed mild to moderate pain due to sickle cell disease SKIN: Focused skin assessment warm/dry. HEAD: Atraumatic. Normocephalic. EYES: Pupils equal and round. No scleral icterus. No injection or drainage. ENT: No nasal bleeding or discharge. Mucous membranes pink and moist. NECK: Trachea midline. No JVD. CARDIOVASCULAR: Regular rate and rhythm. No murmur appreciated. RESPIRATORY: No accessory muscle use. Clear to auscultation. Breath sounds equal bilaterally. GASTROINTESTINAL: Abdomen soft, non-tender, nondistended. Hepatic and splenic margins not palpable. MUSCULOSKELETAL: No obvious deformities. No clubbing. No cyanosis. No edema. NEUROLOGICAL: Awake and alert. No obvious cranial nerve deficits. Motor grossly within normal limits. Normal speech. PSYCHIATRIC: Appropriate mood and affect; insight and judgment normal. Course Initial Documented Vital Signs Temperature 98.9 F 06/06/18 03:05 Pulse Rate 96 H 06/06/18 03:05 Respiratory Rate 20 06/06/18 03:05 Blood Pressure 160/79 H 06/06/18 03:05 Pulse Oximetry 90 L 06/06/18 03:05 Last Documented Vital Signs Temperature 98.9 F 06/06/18 03:05 Pulse Rate 78 06/06/18 05:18 Respiratory Rate 18 06/06/18 05:18 Blood Pressure 120/68 06/06/18 05:18 Pulse Oximetry 94 L 06/06/18 05:39 Critical Care Time Critical Care Time: Yes Total Critical Care Time: 40 Attestation: Aggregate critical care time was 35 minutes. Time to perform other separately billable procedures was not included in the critical care time. My time did not include minutes spent treating any other patients simultaneously or on activities that did not directly contribute to the patient's treatment. The services I provided to this patient were to treat and/or prevent clinically significant deterioration that could result in: Septic shock, hypoxia I provided critical care services requiring my management, as noted below: Chart data review, documentation time, medication orders and management, vital sign assessments/reviewing monitor data, ordering and reviewing lab tests, ordering and interpreting/reviewing x-rays and diagnostic studies, care of the patient and discussion of the patient with the admitting physicians. Medical Decision Making MDM Narrative Medical decision making narrative: White blood cell count is 17,000 Hemoglobin 7.5 Platelet count 349 Sickle cells present on differential Retic count 15.8% Absolute reticulocyte count 410 Total bilirubin 13.9 up from 11.0 from 1 week ago BUN/Cr 27/1.73 Once prior the GFR was 55, approximately 4 months ago, 1 week ago approximately it was 82 The patient ambulated in the ED just a few steps and the O2 sat decreased to the 70s and gradually increased to the 80s and the 90s. The heart rate increased to the mid 90s. Chest x-ray shows no dense consolidation however mild decompensation is noted. d/w Dr Mckeon, ABG and repeat chest xray requested ABG 7.29/43/20 pO2 100 on 2LNC, Hb 6.1, O2 sat 89% Repeat CBC sent stat at 630AM UA shows hematuria without UTI Pt received 2.5L NS here Repeat CXR shows worsening decompensation O2 sat at 655AM 100% on 2L HR 68, BP 120/70 d/w Dr Mckeon who requests endorsement clerk management d/w Dr Mahoney at 654AM Medical Screen Exam Complete: Yes Emergency Medical Condition: Yes Lab Data Result diagrams: 06/06/18 06:25 06/06/18 03:40 Lab Results 06/06/18 06/06/18 06/06/18 Range/Units 03:40 03:40 05:15 WBC 17.0 H (4.0-11.0) th/mm3 RBC 2.60 L (4.50-5.90) mil/mm3 Hgb 7.5 L (13.0-17.0) gm/dL Hct 21.1 L (39.0-51.0) % MCV 80.9 (80.0-100.0) fL MCH 28.9 (27.0-34.0) pg MCHC 35.7 (32.0-36.0) % RDW 28.4 H (11.6-17.2) % Plt Count 349 (150-450) th/mm3 MPV 8.2 (7.0-11.0) fL Prelim Diff (Auto) Slide review pending Neut % (Auto) 64.9 (16.0-70.0) % Lymph % (Auto) 23.4 (9.0-44.0) % [place] % (Auto) 10.1 H (0.0-8.0) % Eos % (Auto) 0.4 (0.0-4.0) % Baso % (Auto) 1.2 (0.0-2.0) % Neut # (Auto) 11.1 H (1.8-7.7) th/mm3 Lymph # (Auto) 4.0 (1.0-4.8) th/mm3 [place] # (Auto) 1.7 H (0.0-0.9) th/mm3 Eos # (Auto) 0.1 (0.0-0.4) th/mm3 Baso # (Auto) 0.2 (0.0-0.2) th/mm3 WBC Differential Manual diff final Seg Neuts % (Manual) 82 H (16-70) % Band Neuts % (Manual) 1 (0-6) % Lymphocytes % (Manual) 10 (9-44) % Monocytes % (Manual) 6 (0-8) % Eosinophils % (Manual) 1 (0-4) % Abs Neuts (Manual) 14.1 H (1.8-7.7) th/mm3 Nucleated RBCs/100 WBC 4 H (0-0) /100 WBC Differential Comment . Platelet Estimate Normal (Normal) Platelet Morphology Enlarged H (Normal) Polychromasia 3.6 H (0.0-1.9) % Pappenheimer Bodies Present H (None) Sickle Cells 2+ H (None) Target Cells 1+ H (None) Retic Count 15.8 H (0.4-3.0) % Absolute Retic 410.3 H (20.0-150.0) mil/L Puncture Site Patient Temperature O2 Saturation (90-100) % ABG pH (7.380-7.420) ABG pCO2 (38-42) mmHg ABG pO2 (61-120) mmHg ABG HCO3 (22-26) mmol/L ABG O2 Content (12.0-20.0) Vol % ABG Base Excess (-2-2) mmol/L ABG Methemoglobin (0-2) % Mando Test Hemoglobin (12.0-16.0) G/DL Carboxyhemoglobin (0-4) % O2 Delivery Device Liter Flow L/M Critical Value Sodium 137 (136-145) meq/L Potassium 4.7 (3.5-5.1) meq/L Chloride 106 (98-107) meq/L Carbon Dioxide 24.0 (21.0-32.0) meq/L Anion Gap 7 (5-15) meq/L BUN 27 H (7-18) mg/dL Creatinine 1.73 H (0.60-1.30) mg/dL Estimated GFR 55 L (>89) mL/min Random Glucose 96 (74-106) mg/dL Calcium 8.6 (8.5-10.1) mg/dL Total Bilirubin 13.9 H (0.2-1.0) mg/dL AST 90 H (15-37) U/L ALT 46 (12-78) U/L Alkaline Phosphatase 293 H (45-117) U/L Total Protein 8.2 (6.4-8.2) g/dL Albumin 3.9 (3.4-5.0) g/dL Urine Color Yellow (Yellw/Straw) Urine Clarity Clear (Clear) Urine pH 5.0 (5.0-8.5) Ur Specific [place] 1.005 (1.002-1.035) Urine Protein 100 H (Neg-Trace) mg/dL Urine Glucose (UA) Negative (Negative) mg/dL Urine Ketones Negative (Negative) mg/dL Urine Occult Blood Moderate H (Negative) Urine Nitrate Negative (Negative) Urine Bilirubin Negative (Negative) Urine Urobilinogen Less than 2 (Less than 2) mg/dL Ur Leukocyte Esterase Negative (Negative) Urine RBC Less than 1 (0-3) /hpf Urine WBC 1 (0-5) /hpf Ur Squamous Epith Cells <1 (0-5) /hpf Urine Mucus Few H (Occasional) /lpf Ur Microscopic Review Not Reportable 06/06/18 06/06/18 Range/Units 06:07 06:25 WBC 19.7 H (4.0-11.0) th/mm3 RBC 2.42 L (4.50-5.90) mil/mm3 Hgb 7.2 L (13.0-17.0) gm/dL Hct 20.0 L* (39.0-51.0) % MCV 82.8 (80.0-100.0) fL MCH 29.8 (27.0-34.0) pg MCHC 36.0 (32.0-36.0) % RDW 27.3 H (11.6-17.2) % Plt Count 314 (150-450) th/mm3 MPV 8.2 (7.0-11.0) fL Prelim Diff (Auto) Slide review pending Neut % (Auto) 55.0 (16.0-70.0) % Lymph % (Auto) 33.1 (9.0-44.0) % [place] % (Auto) 9.7 H (0.0-8.0) % Eos % (Auto) 0.5 (0.0-4.0) % Baso % (Auto) 1.7 (0.0-2.0) % Neut # (Auto) 10.9 H (1.8-7.7) th/mm3 Lymph # (Auto) 6.5 H (1.0-4.8) th/mm3 [place] # (Auto) 1.9 H (0.0-0.9) th/mm3 Eos # (Auto) 0.1 (0.0-0.4) th/mm3 Baso # (Auto) 0.3 H (0.0-0.2) th/mm3 WBC Differential Seg Neuts % (Manual) (16-70) % Band Neuts % (Manual) (0-6) % Lymphocytes % (Manual) (9-44) % Monocytes % (Manual) (0-8) % Eosinophils % (Manual) (0-4) % Abs Neuts (Manual) (1.8-7.7) th/mm3 Nucleated RBCs/100 WBC (0-0) /100 WBC Differential Comment . Platelet Estimate (Normal) Platelet Morphology (Normal) Polychromasia (0.0-1.9) % Pappenheimer Bodies (None) Sickle Cells (None) Target Cells (None) Retic Count (0.4-3.0) % Absolute Retic (20.0-150.0) mil/L Puncture Site Right radial Patient Temperature 98.6 O2 Saturation 89 L* (90-100) % ABG pH 7.29 L* (7.380-7.420) ABG pCO2 43 H (38-42) mmHg ABG pO2 102 (61-120) mmHg ABG HCO3 20 L (22-26) mmol/L ABG O2 Content 7.8 L (12.0-20.0) Vol % ABG Base Excess -5.1 L (-2-2) mmol/L ABG Methemoglobin 1.3 (0-2) % Mando Test Present Hemoglobin 6.1 L* (12.0-16.0) G/DL Carboxyhemoglobin 5.1 H* (0-4) % O2 Delivery Device Nasal cannula Liter Flow 2.00 L/M Critical Value Yes Sodium (136-145) meq/L Potassium (3.5-5.1) meq/L Chloride (98-107) meq/L Carbon Dioxide (21.0-32.0) meq/L Anion Gap (5-15) meq/L BUN (7-18) mg/dL Creatinine (0.60-1.30) mg/dL Estimated GFR (>89) mL/min Random Glucose (74-106) mg/dL Calcium (8.5-10.1) mg/dL Total Bilirubin (0.2-1.0) mg/dL AST (15-37) U/L ALT (12-78) U/L Alkaline Phosphatase (45-117) U/L Total Protein (6.4-8.2) g/dL Albumin (3.4-5.0) g/dL Urine Color (Yellw/Straw) Urine Clarity (Clear) Urine pH (5.0-8.5) Ur Specific [place] (1.002-1.035) Urine Protein (Neg-Trace) mg/dL Urine Glucose (UA) (Negative) mg/dL Urine Ketones (Negative) mg/dL Urine Occult Blood (Negative) Urine Nitrate (Negative) Urine Bilirubin (Negative) Urine Urobilinogen (Less than 2) mg/dL Ur Leukocyte Esterase (Negative) Urine RBC (0-3) /hpf Urine WBC (0-5) /hpf Ur Squamous Epith Cells (0-5) /hpf Urine Mucus (Occasional) /lpf Ur Microscopic Review Imaging Data Radiologist's impression: Chest X-Ray 06/06/18 03:33 CONCLUSION: Mild cardiac decompensation Chest X-Ray 06/06/18 05:55 CONCLUSION: Worsening diffuse parenchymal lung disease Discharge Plan Discharge Disposition Patient Disposition: ED Admit(ED Internal Use Only) Discharge Order Discharge Orders: ED Use Only Admit Order (Routine); Ordered 06/06/18 Ordered By: Romulo Narvaez Physicians Team ED Provider: Romulo Narvaez Primary Care Provider: Lashay Salgado Attending Provider: Brian Mahoney Status ED Status: Admitted Patient
[2018-06-06] MEDS: Sod Chloride 0.9% Inj 1,000 ML IV.SIG SCH ×2 (03:54→05:16)
[2018-06-06 04:01] LABS: Baso # (Auto) 0.2 th/mm3 (0.0-0.2); Baso % (Auto) 1.2 % (0.0-2.0); Eos # (Auto) 0.1 th/mm3 (0.0-0.4); Eos % (Auto) 0.4 % (0.0-4.0); Hematocrit 21.1 % (39.0-51.0); Hemoglobin 7.5 gm/dL (13.0-17.0); Lymph % (Auto) 23.4 % (9.0-44.0); Mean Corpuscular HGB Conc 35.7 % (32.0-36.0); Mean Corpuscular Hemoglobin 28.9 pg (27.0-34.0); Mean Corpuscular Volume 80.9 fL (80.0-100.0); Mean Platelet Volume 8.2 fL (7.0-11.0); Mono # (Auto) 1.7 th/mm3 (0.0-0.9); Mono % (Auto) 10.1 % (0.0-8.0); Neut # (Auto) 11.1 th/mm3 (1.8-7.7); Neut % (Auto) 64.9 % (16.0-70.0); Platelet Count 349 th/mm3 (150-450); Red Cell Distribution Width 28.4 % (11.6-17.2); Reticulocyte Percent 15.8 % (0.4-3.0)
[2018-06-06 04:22] LABS: Alkaline Phosphatase 293 U/L (45-117); Total Protein 8.2 g/dL (6.4-8.2)
--- NOTE | 2018-06-06 04:43 | XR ---
EXAM DATE: 06/06/2018 4:01 AM EST AGE/SEX: 33 years / Male INDICATIONS: Chest pain. CLINICAL DATA: This is the patient's initial encounter. Patient reports that signs and symptoms have been present for 1 day and indicates a pain score of 9/10. MEDICAL/SURGICAL HISTORY: Sickle Cell disease. Cholecystectomy. COMPARISON: [facility] [place], CHEST 2V PA&LAT, 03/13/2018. . FINDINGS: Cardiac silhouette is enlarged. Moderate vascular congestion and mild interstitial prominence. No noah dence of alveolar consolidation or pleural effusion. CONCLUSION: Mild cardiac decompensation Electronically signed by: Fransisco Cooper MD Board Certified Radiologist 06/06/2018 4:41 AM EST
[2018-06-06 04:44] LABS: Alanine Aminotransferase 46 U/L (12-78); Albumin 3.9 g/dL (3.4-5.0); Anion Gap 7 meq/L (5-15); Aspartate Aminotransferase 90 U/L (15-37); Blood Urea Nitrogen 27 mg/dL (7-18); Calcium 8.6 mg/dL (8.5-10.1); Chloride 106 meq/L (98-107); Glomerular Filtration Rate 55 mL/min (>89); Glucose,Random 96 mg/dL (74-106); Potassium 4.7 meq/L (3.5-5.1); Sodium 137 meq/L (136-145)
[2018-06-06 04:55] LABS: Eosinophils 1 % (0-4); Lymphocytes 10 % (9-44); Monocytes 6 % (0-8); Platelet Estimate Normal (Normal); Sickle Cells 2+; Tallied Nucleated RBC 4 (0-0); Target Cells 1+
[2018-06-06 04:56] LABS: Pappenheimer Bodies Present; Polychromasia 3.6 % (0.0-1.9)
[2018-06-06] MEDS ORDERED: HYDROmorphone PF Inj 2 MG/ML Vial IV.PUSH ONE (05:08)
[2018-06-06 06:04] LABS: Bilirubin,Urine Negative (Negative); Clarity,Urine Clear (Clear); Color,Urine Yellow (Yellw/Straw); Glucose,Urine (UA) Negative (Negative); Leukocyte Esterase,Urine Negative (Negative); Mucus,Urine Few /lpf (Occasional); Nitrite,Urine Negative (Negative); Specific Gravity,Urine 1.005 (1.002-1.035); Squamous Epithelial Cell,Urine <1 /hpf (0-5)
[2018-06-06 06:20] LABS: ABG Base Excess -5.1 mmol/L (-2-2); ABG PCO2 43 mmHg (38-42); ABG PO2 102 mmHg (61-120)
--- NOTE | 2018-06-06 06:46 | XR ---
EXAM DATE: 06/06/2018 6:27 AM EST AGE/SEX: 33 years / Male INDICATIONS: Repeat chest x-ray for fever. CLINICAL DATA: This is the patient's subsequent encounter. Patient reports that signs and symptoms h ave been present for 1 day and indicates a pain score of 4/10. MEDICAL/SURGICAL HISTORY: Sickle Cell disease. Cholecystectomy. COMPARISON: [facility] [place], CHEST 1V SINGLE AP, 06/06/2018. . FINDINGS: Cardiomegaly with vascular congestion and diffuse interstitial and alveolar parenchymal opacity, slig htly progressed from earlier exam CONCLUSION: Worsening diffuse parenchymal lung disease Electronically signed by: Fransisco Cooper MD Board Certified Radiologist 06/06/2018 6:45 AM EST
[2018-06-06 07:03] LABS: Baso # (Auto) 0.3 th/mm3 (0.0-0.2); Baso % (Auto) 1.7 % (0.0-2.0); Eos # (Auto) 0.1 th/mm3 (0.0-0.4); Eos % (Auto) 0.5 % (0.0-4.0); Lymph # (Auto) 6.5 th/mm3 (1.0-4.8); Lymph % (Auto) 33.1 % (9.0-44.0); Mean Corpuscular Hemoglobin 29.8 pg (27.0-34.0); Mean Corpuscular Volume 82.8 fL (80.0-100.0); Mean Platelet Volume 8.2 fL (7.0-11.0); Mono # (Auto) 1.9 th/mm3 (0.0-0.9); Mono % (Auto) 9.7 % (0.0-8.0); Neut # (Auto) 10.9 th/mm3 (1.8-7.7); Platelet Count 314 th/mm3 (150-450); Red Blood Count 2.42 mil/mm3 (4.50-5.90); Red Cell Distribution Width 27.3 % (11.6-17.2); White Blood Count 19.7 th/mm3 (4.0-11.0)
[2018-06-06 07:08] LABS: Hemoglobin 7.2 gm/dL (13.0-17.0)
[2018-06-06] MEDS ORDERED: Bisacodyl 10 MG Supp RECTAL PRN (07:16)
--- NOTE | 2018-06-06 07:34 | P.HPCC ---
History of Present Illness Service: Critical care medicine Primary Care Physician: Lashay Salgado MD Chief Complaint: Shortness of breath, pain History of Present Illness: This is a 33-year-old male. Date of admission 06/06/2018. Past medical history includes sickle cell trait, gout, priapism and chronic anemia. He has a history of priapism when taking hydroxyurea. He is on folic acid at home. He is a patient of Dr. Lashay Salgado. He usually presents with 2-3 sickle cell crisis yearly. He presents to [place] [id number] planning of low back pain, right leg pain and right foot pain R leg pain c/w typical sick cell related pain. At home reported fevers. Denies chest pain, pleuritic chest pain with deep inspiration, abdominal pain. 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 He normally takes allopurinol chronically at home. Workup revealed a leukocytosis, and anemia of 7.2. Elevated total globin of 13.9 and creatinine of 1.7. Patient received 2.5 L of normal saline. Upon ambling patient had saturations of 80%. Chest x-ray showed worsening pulmonary edema likely from the fluid challenge. Hospitalist report from ED physician did not feel comfortable admitting this patient to their service so we were asked to admit. - Diagnosis (1) Vaso-occlusive sickle cell crisis (2) Acute kidney injury (3) Leukocytosis (4) Normocytic anemia (5) Total bilirubin, elevated (6) Acute respiratory failure with hypoxia (7) Acute sickle cell crisis (8) Erythrocyte antibody positive with compatible packed erythrocytes difficult to obtain (9) Red blood cell antibody positive Inpatient Certification: I certify that the inpatient services were ordered in accordance with Medicare regulations governing the order. This includes certification that hospital inpatient services are reasonable and necessary and in the case of services not specified as inpatient-only under 42 CFR 419.22(n), that they are appropriately provided as inpatient services in accordance to with the 2-midnight benchmark under 43 CFR 412.3(e) Estimated Total Length of Stay (Days): 5 Plans for Post Hospital Care: Not yet determined Review of Systems Constitutional: Reports weakness, Denies anorexia, Denies body ache(s), Denies chills, Denies weight gain Eyes: Denies blind spots, Denies discharge Ears, Nose, Mouth, and Throat: Denies abnormal hearing, Denies bleeding gums, Denies poor balance Cardiovascular: Reports shortness of breath, Denies chest pain, Denies chest pain at rest, Denies chest pain with activity, Denies shortness of breath with activity, Denies shortness of breath when lying down, Denies shortness of breath causing sudden awakening Respiratory: Denies chest congestion, Denies cough, Denies pain on inspiration Gastrointestinal: Denies abdominal pain, Denies bloating Genitourinary: Denies urinary frequency, Denies urinary hesitancy Musculoskeletal: Reports back pain, Denies abnormal walking, Denies muscle weakness Skin/Breast: Denies sores, Denies stretch neal Neurologic: Denies radiating pain, Denies sensory deficit Psychiatric: Reports anxiety, Denies confusion, Denies depression Endocrine: Denies cold intolerance, Denies excessive sweating Hematologic/Lymphatic: Denies easy bleeding, Denies easy bruising Allergic/Immunologic: Denies GI upset with certain foods PMFSH - History History Provided By: Patient - Medical History Medical History: Medical History (Last Reviewed 06/06/18 @ 03:09 by Truman Oliva RN) Gout Sickle cell anemia - Surgical History Surgical History: Surgical History (Last Reviewed 06/06/18 @ 03:09 by Truman Oliva RN) History of cholecystectomy - Family History Family History: Family History (Last Reviewed 05/31/18 @ 06:30 by Sandrine Aguilera MD) Father Gout - Social History I have reviewed the patient's Social History: Yes - Tobacco History Second Hand Smoke Exposure: No Smoking Status: Never smoker - Alcohol History How Often Do You Have a Drink Containing Alcohol: Monthly or less - Substance Use History Substance History: No History of Abuse - Travel History Recent Travel in the [place] Within the Last 8 Weeks: No Recent Travel Out of the Country Within the Last 8 Weeks: No - Immunization History Tetanus Immunization: Unsure Medications and Allergies Active Medications: Active Medications Al Hydroxide/Mg Hydroxide (Milk Of Magnpaul Liq) 30 ml PO Q12H PRN PRN Reason: Mild Constipation Albuterol (Albuterol Neb (Leia)) 2.5 mg NEB Q2HR NEB PRN PRN Reason: SHORTNESS OF BREATH/WHEEZING Albuterol (Duoneb Neb (Prn)) 1 ampul NEB Q6HR NEB LEIA Bisacodyl (Dulcolax Supp) 10 mg RECTAL DAILY PRN PRN Reason: SEVERE CONSITIPATION Chlorhexidine Gluconate (Chlorhexidine 2% Cloth) 3 pack TOPICAL DAILY@0400 [facility] Stop: 06/12/18 03:59 Chlorhexidine Gluconate (Chlorhexidine 2% Cloth) 3 pack TOPICAL DAILY@0400 PRN PRN Reason: Extra cloth needed Stop: 06/12/18 03:59 Chlorhexidine Gluconate (Chlorhexidine 2% Cloth) 3 pack TOPICAL DAILY@0400 [facility]IA Stop: 06/12/18 03:59 Chlorhexidine Gluconate (Chlorhexidine 2% Cloth) 3 pack TOPICAL DAILY@0400 PRN PRN Reason: Extra cloth needed Stop: 06/12/18 03:59 Famotidine (Pepcid) 20 mg PO BID [facility] Famotidine (Pepcid Pf Inj) 20 mg IV.PUSH Q12HR [facility] Folic Acid (Folic Acid) 1 mg PO DAILY [facility] Sodium Chloride (Ns Inj) 1,000 mls @ 125 mls/hr IV.CONT .Q8H [facility] Lactulose (Lactulose Liq) 30 ml PO DAILY PRN PRN Reason: SEVERE CONSITIPATION Ondansetron HCl (Zofran Inj) 4 mg IV.PUSH Q6H PRN PRN Reason: NAUSEA OR VOMITING Oxycodone HCl (Roxicodone) 5 mg PO Q4H PRN PRN Reason: Pain 1 through 5 Senna/Docusate Sodium (Latrice-Colace) 1 tab PO BID [facility] Sennosides (Senokot) 17.2 mg PO Q12H PRN PRN Reason: Moderate Constipation Sodium Chloride (Ns Flush) 2 ml IV.FLUSH PRN PRN PRN Reason: FLUSH AFTER USING IV ACCESS Sodium Chloride (Ns Flush) 2 ml IV.FLUSH BID LEIA Sodium Chloride (Ns Flush) 2 ml IV.FLUSH PRN PRN PRN Reason: FLUSH AFTER USING IV ACCESS Sodium Chloride (Ns Flush) 2 ml IV.FLUSH BID LEIA Sodium Chloride (Ns Flush) 2 ml IV.FLUSH PRN PRN PRN Reason: FLUSH AFTER USING IV ACCESS Sodium Chloride (Ns Flush) 2 ml IV.FLUSH BID LEIA Sodium Chloride (Ns Flush) 2 ml IV.FLUSH PRN PRN PRN Reason: FLUSH AFTER USING IV ACCESS Allergies Allergy/AdvReac Type Severity Reaction Status Date / Time No Known Allergies Allergy Verified 06/06/18 03:09 Home Medications Medication Instructions Recorded Confirmed Type folic acid 0.4 mg PO DAILY 01/30/18 06/06/18 History oxycodone 10 mg PO Q8HR PRN 01/30/18 06/06/18 History allopurinol 300 mg PO DAILY 06/06/18 06/06/18 History Results - Labs CBC & Chem 7: 06/06/18 06:25 06/06/18 03:40 Labs: Short CBC 06/06/18 06/06/18 Range/Units 03:40 06:25 WBC 17.0 H 19.7 H (4.0-11.0) th/mm3 Hgb 7.5 L 7.2 L (13.0-17.0) gm/dL Hct 21.1 L 20.0 L* (39.0-51.0) % Plt Count 349 314 (150-450) th/mm3 BMP 06/06/18 03:40 Sodium 137 Potassium 4.7 Chloride 106 Carbon Dioxide 24.0 BUN 27 H Creatinine 1.73 H Calcium 8.6 Liver Function 06/06/18 Range/Units 03:40 Total Bilirubin 13.9 H (0.2-1.0) mg/dL AST 90 H (15-37) U/L ALT 46 (12-78) U/L Alkaline Phosphatase 293 H (45-117) U/L Albumin 3.9 (3.4-5.0) g/dL Urine 06/06/18 Range/Units 05:15 Urine Color Yellow (Yellw/Straw) Urine Clarity Clear (Clear) Urine pH 5.0 (5.0-8.5) Ur Specific [place] 1.005 (1.002-1.035) Urine Protein 100 H (Neg-Trace) mg/dL Urine Glucose (UA) Negative (Negative) mg/dL - Imaging Impressions Chest X-Ray 06/06/18 03:33 CONCLUSION: Mild cardiac decompensation Chest X-Ray 06/06/18 05:55 CONCLUSION: Worsening diffuse parenchymal lung disease Exam Vital signs: Vital Signs 06/06/18 03:05 06/06/18 03:24 06/06/18 03:25 Temperature 98.9 F Pulse Rate 96 H 92 H Respiratory Rate 20 20 Blood Pressure 160/79 H Pulse Oximetry 90 L 85 L 95 06/06/18 03:33 06/06/18 05:18 06/06/18 05:39 Temperature Pulse Rate 78 Respiratory Rate 18 Blood Pressure 120/68 Pulse Oximetry 95 95 94 L Intake & Output 06/05/18 06/06/18 06/06/18 18:59 06:59 18:59 Intake Total 3500 / 3500 Balance 3500 / 3500 Weight 72.575 kg Intake: IV 3500 / 3500 NS Inj 1,000 ML @ 2000 mls/hr 3500 / 3500 IV.SIG Q30M LEIA Rx#:[id number] - Constitutional no acute distress - Routine HEENT Exam Head: Present: normocephalic, atraumatic Eye: Present: EOMI, PERRL, normal accommodation ENT: Present: mucous membranes dry - Routine Neck Exam Present: supple, full ROM. Absent: JVD - Routine Chest/Breast/Axilla Exam Chest wall: Absent: tenderness Breast: Absent: tenderness Axillae: Absent: lymphadenopathy - Routine Respiratory Exam Present: crackles. Absent: accessory muscle use, diminished air movement - Routine Cardiovascular Exam Present: RRR, S1, S2. Absent: murmur - Routine Abdominal Exam Absent: soft, normoactive bowel sounds - Routine Extremities Exam Absent: cyanosis, clubbing, edema - Routine Skin Exam Present: intact - Routine Neurological Exam Present: alert, oriented X3, CN II-XII intact. Absent: sensory deficit, motor deficit, altered mental status Septic Shock Reassessment Septic shock perfusion: reassessment completed Caprini VTE Risk Assessment Caprini VTE Risk Assessment: No/Low Risk (score <= 1) Caprini Risk Assessment Model: Point Value = 1 Point Value = 2 Point Value = 3 Point Value = 5 Age 41-60 Minor surgery BMI > 25 kg/m2 Swollen legs Varicose veins or History of unexplained or recurrent spontaneous Oral contraceptives or hormone replacement Sepsis (< 1 month) Serious lung disease, including pneumonia (< 1 month) Abnormal pulmonary function Acute myocardial infarction Congestive heart failure (< 1 month) History of inflammatory bowel disease Medical patient at bed rest Age 61-74 Arthroscopic surgery Major open surgery (> 45 min) Laparoscopic surgery (> 45 min) Malignancy Confined to bed (> 72 hours) Immobilizing plaster cast Central venous access Age >= 75 History of VTE Family history of VTE Factor V Leiden Prothrombin [id number] Lupus anticoagulant Anticardiolipin antibodies Elevated serum homocysteine Heparin-induced thrombocytopenia Other congenital or acquired thrombophilia Stroke (< 1 month) Elective arthroplasty Hip, pelvis, or leg fracture Acute spinal cord injury (< 1 month) Prophylaxis Regimen: Total Risk Factor Score Risk Level Prophylaxis Regimen 0-1 Low Early ambulation 2 Moderate Order ONE of the following: *Sequential Compression Device (SCD) *Heparin 5000 units SQ BID 3-4 Higher Order ONE of the following medications: *Heparin 5000 units SQ TID *Enoxaparin/Lovenox 40 mg SQ daily (WT < 150 kg, CrCl > 30 mL/min) *Enoxaparin/Lovenox 30 mg SQ daily (WT < 150 kg, CrCl > 10-29 mL/min) *Enoxaparin/Lovenox 30 mg SQ BID (WT < 150 kg, CrCl > 30 mL/min) AND/OR *Sequential Compression Device (SCD) 5 or more Highest Order ONE of the following medications: *Heparin 5000 units SQ TID (Preferred with Epidurals) *Enoxaparin/Lovenox 40 mg SQ daily (WT < 150 kg, CrCl > 30 mL/min) *Enoxaparin/Lovenox 30 mg SQ daily (WT < 150 kg, CrCl > 10-29 mL/min) *Enoxaparin/Lovenox 30 mg SQ BID (WT < 150 kg, CrCl > 30 mL/min) AND *Sequential Compression Device (SCD) Assessment and Plan - Problem List (1) Vaso-occlusive sickle cell crisis Code(s): D57.00 - Hb-SS disease with crisis, unspecified Status: Acute (2) Acute kidney injury Code(s): N17.9 - Acute kidney failure, unspecified Status: Acute (3) Leukocytosis Code(s): D72.829 - Elevated white blood cell count, unspecified Status: Acute (4) Normocytic anemia Code(s): D64.9 - Anemia, unspecified Status: Chronic (5) Total bilirubin, elevated Code(s): R17 - Unspecified jaundice Status: Acute (6) Acute respiratory failure with hypoxia Code(s): J96.01 - Acute respiratory failure with hypoxia Status: Acute (7) Acute sickle cell crisis Code(s): D57.00 - Hb-SS disease with crisis, unspecified Status: Acute (8) Erythrocyte antibody positive with compatible packed erythrocytes difficult to obtain Code(s): R76.8 - Other specified abnormal immunological findings in serum Status: Chronic (9) Red blood cell antibody positive Code(s): R76.8 - Other specified abnormal immunological findings in serum Status: Chronic - Assessment and Plan Plan: Neuro/Psych: Chronic pain/opiate use Acetaminophen 650 p.o. every 6 hours as needed fever Oxycodone 5 mill grams every 4 hours as needed pain 1 through 5 Morphine sulfate 2 mg IV every 2 hours pain 6 through 10 Patient is currently on oxycodone 10 mg every 8 hours as needed pain CV: Received 2.5 normal saline plus crystalloid resuscitation in the ED Currently on normal saline at 125 cc an hour. Check 2D echo regarding with cardiomegaly Currently not requiring vasopressors and/or antihypertensives Resp: Acute respiratory insufficiency with hypoxemia Nasal cannula to maintain saturations greater than equal to 92% Incentive spirometry while awake As needed albuterol aerosols every 2 hours. Dyspnea Chest x-ray in a.m. 06/07 GI: Elevated total bilirubin Low purine diet Famotidine for GI prophylaxis Docusate sodium/senna 1 tablet twice daily for bowel regimen Check abdominal ultrasound Check hepatitis panel and bilirubin component : History of priapism with hydroxyurea use No indication for Sapp catheter Endo: History of gout Sliding scale insulin if indicated to maintain euglycemia Check uric acid We will give prednisone if indicated along with opioid management for pain Renal: Acute kidney injury Check urine eosinophils, creatinine and sodium Avoid nephrotoxic medication Monitor urine output Accurate I's and O's Heme: Sickle cell disease with acute vasoocclusive crisis Chronic anemia LDH/reticulocyte count currently pending Check peripheral smear Check CBC and LDH in a.m. monitor reticulocyte count No indication for transfusion of blood products at this time Aggressive hydration Dr. Salgado will be consulted for management -noted intolerance to hydroxyurea Continue folic acid 1 mg daily Type and screen ID: Blood cultures x2, influenza a and B ordered FEN: Replace electrolytes as clinically indicated per ICU electrolyte protocol MSK: PT evaluate and treat Access -Utilize peripheral IV. Central line if indicated Prophylaxis -GI -famotidine -DVT -SCD/holding pharmacological prophylaxis with acute anemia Level 2 admission. Transfer care to hospitalist in a.m. 06/07. Code Status: Full code Discussed Condition With: Patient. Dr. Narvaez/ED physician. Care plan discussed and all questions answered. (3) Leukocytosis Qualifiers: Leukocytosis type: unspecified Qualified Code(s): D72.829 - Elevated white blood cell count, unspecified
[2018-06-06 07:40] LABS: Lymphocytes 28 % (9-44); Monocytes 10 % (0-8); Tallied Nucleated RBC 3 (0-0)
[2018-06-06 07:41] LABS: Howell-Jolly Bodies Present; Pappenheimer Bodies Present; Platelet Estimate Normal (Normal)
[2018-06-06] MEDS ORDERED: Potassium Chlor 20 mEq Premix 20 MEQ/100 ML PIGGYBACK IV.SIG PRN ×2 (07:41)
[2018-06-06] MEDS ORDERED: Sodium Phosphate Inj 30 MMOL in Sodium Chlor 0.9% Inj 250 ML IV.SIG PRN (07:41)
[2018-06-06] MEDS ORDERED: Potassium Chloride Liq 20 MEQ/15 ML UDC PO PRN ×2 (07:41)
[2018-06-06] MEDS ORDERED: Magnesium Sulfate Inj 2 GM in Sodium Chlor 0.9% Inj 96 ML IV.SIG PRN (07:41)
[2018-06-06] MEDS ORDERED: Magnesium Oxide 400 MG Tablet PO PRN (07:41)
[2018-06-06] MEDS ORDERED: Potassium Chlor 40 mEq Premix 40 MEQ/100 ML PIGGYBACK IV.SIG PRN ×2 (07:41)
[2018-06-06] MEDS ORDERED: Magnesium Sulfate Inj 4 GM in Sodium Chlor 0.9% Inj 92 ML IV.SIG PRN (07:41)
[2018-06-06] MEDS ORDERED: Potassium Phosphate 500 MG Soluble Tablet PO PRN ×2 (07:41)
[2018-06-06] MEDS ORDERED: Potassium Phosphate Inj 30 MMOL in Sodium Chlor 0.9% Inj 250 ML IV.SIG PRN (07:41)
[2018-06-06 07:42] LABS: Polychromasia 2.7 % (0.0-1.9)
[2018-06-06] MEDS ORDERED: Dextrose 50% in Water 50 ML Vial IV.PUSH PRN (07:42)
[2018-06-06 07:43] LABS: Sickle Cells 3+
[2018-06-06] MEDS ORDERED: Morphine Sulfate Inj 2 MG/ML Vial IV.PUSH PRN (08:52)
[2018-06-06] MEDS ORDERED: Famotidine 20 MG Tablet PO SCH (09:00)
[2018-06-06] MEDS ORDERED: Famotidine PF Inj 20 MG/2 ML Vial IV.PUSH SCH (09:00)
[2018-06-06] MEDS: Sod Chloride 0.9% Inj 1,000 ML IV.CONT SCH ×2 (09:03→17:37)
[2018-06-06] MEDS: predniSONE 20 MG Tablet PO SCH ×2 (09:03→20:09)
[2018-06-06] MEDS: Famotidine 20 MG Tablet PO SCH (09:03)
[2018-06-06] MEDS: Senna/Docusate Sodium 8.6/50 MG Tablet PO SCH ×2 (09:03→20:10)
[2018-06-06] MEDS: Folic Acid 1 MG Tablet PO SCH (09:03)
[2018-06-06] MEDS ORDERED: OXYCODONE 10 MG PO PRN (09:14)
[2018-06-06] MEDS: HYDROmorphone PF Inj 2 MG/ML Vial IV.PUSH PRN ×4 (09:37→21:34)
[2018-06-06 11:53] LABS: Reticulocyte Percent 15.1 % (0.4-3.0)
[2018-06-06] MEDS: Insulin NovoLOG Aspart Correctional Sugar Inj SQ SCH ×2 (12:11→18:07)
[2018-06-06 12:21] LABS: Uric Acid 11.2 mg/dl (2.6-7.2)
[2018-06-06 12:45] LABS: Hepatitits B Surface Antigen Nonreactive (Nonreactive)
[2018-06-06 13:06] LABS: Hepatitis A IgM Antibody Nonreactive (Nonreactive)
[2018-06-06 13:34] LABS: ABG Base Excess -3.4 mmol/L (-2-2); ABG PCO2 43 mmHg (38-42); ABG PO2 129 mmHG (61-120)
--- NOTE | 2018-06-06 18:04 | US ---
EXAM DATE: 06/06/2018 5:57 PM EST AGE/SEX: 33 years / Male INDICATIONS: Elevated labs. CLINICAL DATA: This is the patient's initial encounter. Patient reports that signs and symptoms have been present for 1 day and indicates a pain score of 0/10. MEDICAL/SURGICAL HISTORY: Sickle Cell disease. Gout. Cholecystectomy. COMPARISON: No prior exams available for comparison. MEASUREMENTS: Liver:__ 20.4 cm. Common Bile Duct:___ Nonvisualized. Right Kidney:___12.4 x 5.8 x 4.7 cm. Left Kidney:___11.5 x 6.3 x 6.2 cm. Spleen:___. cm. FINDINGS: Liver: Increased echogenicity without focal lesion or ductal dilatation. Portal Vein: Hepatopedal flow seen in portal vein. Common Duct: No intraluminal mass or stone visualized. Gallbladder: Surgically absent. Pancreas: The visualized portions are within normal limits Right Kidney: Increased echogenicity. No mass or hydronephrosis. Left Kidney: Abnormal appearance of the left kidney with possible cystic change. Ascites: None Pleural Effusion: Left Spleen: Not definitely seen Aorta: Non aneurysmal. IVC: Within normal limits Other: None. CONCLUSION: 1. Abnormal appearance of left kidney/spleen. Recommend CT scan of the abdomen/pelvis for further ch aracterization. 2. Small left pleural effusion. 3. Status post cholecystectomy. Electronically signed by: Jaden Metcalf MD Board Certified Radiologist 06/06/2018 6:02 PM EST
--- NOTE | 2018-06-06 19:01 | ECHRPT ---
Indication: Heart Failure CONCLUSIONS Normal left ventricular size.wall thickness is normal. Left ventricular systolic function is normal with an estimated ejection fraction of 55%. No regional wall motion abnormalities are present. There is trace tricuspid valve regurgitation. BP: 130 / 72 HR: Rhythm: MEASUREMENTS (Male / Female) Normal Values Technical Quality:Good 2D ECHO LV Diastolic Diameter PLAX 5.5 cm 4.2 - 5.9 / 3.9 - 5.3 cm LV Systolic Diameter PLAX 4.0 cm IVS Diastolic Thickness 1.0 cm 0.6 - 1.0 / 0.6 - 0.9 cm LVPW Diastolic Thickness 1.0 cm 0.6 - 1.0 / 0.6 - 0.9 cm LV Relative Wall Thickness 0.4 RV Internal Dim ED PLAX 3.5 cm LVOT Diameter 2.3 cm Aortic Root Diameter 3.0 cm LA Systolic Diameter LX 3.6 cm 3.0 - 4.0 / 2.7 - 3.8 cm M-MODE AV Cusp Separation MM 2.3 cm DOPPLER TR Peak Velocity 217.0 cm/s TR Peak Gradient 18.8 mmHg Right Atrial Pressure 10.0 mmHg Pulmonary Artery Systolic Pressu 28.8 mmHg Right Ventricular Systolic Press 28.8 mmHg FINDINGS LEFT VENTRICLE Normal left ventricular size.wall thickness is normal. The left ventricular systolic function is nor mal with an estimated ejection fraction of 55%. No regional wall motion abnormalities are present. RIGHT VENTRICLE Normal right ventricular size and systolic function. LEFT ATRIUM The left atrial size is normal. RIGHT ATRIUM The right atrial size is normal. ATRIAL SEPTUM Normal atrial septal thickness. AORTA The aortic root and proximal ascending aorta are normal in size on limited imaging. MITRAL VALVE Structurally normal mitral valve. AORTIC VALVE Trileaflet aortic valve. TRICUSPID VALVE There is trace tricuspid valve regurgitation. PULMONARY VALVE No pulmonary valve regurgitation or stenosis. VESSELS The inferior vena cava is normal in size. PERICARDIUM No pericardial effusion. Valentin Encarnacion MD (Electronically Signed) Final Date:06 June 2018 19:00
[2018-06-07] MEDS: Insulin NovoLOG Aspart Correctional Sugar Inj SQ SCH ×4 (00:58→17:43)
[2018-06-07] MEDS: Sod Chloride 0.9% Inj 1,000 ML IV.CONT SCH ×5 (00:59→23:50)
[2018-06-07] MEDS: HYDROmorphone PF Inj 2 MG/ML Vial IV.PUSH PRN ×7 (01:00→21:31)
--- NOTE | 2018-06-07 01:34 | MB ---
cc: Laurent Hill MD DATE: 06/06/2018 REASON FOR CONSULTATION: Consult requested by Dr. Mahoney, first line production supervisor, for evaluation of sickle cell painful crisis. HISTORY OF PRESENT ILLNESS: Cruz is a 33-year-old male. He has a history of sickle cell anemia with multiple painful crises. He is under the care of my associate, Dr. Salgado. The patient came into the emergency room complaining of fever and back pain radiating down to his legs, which is typical of the sickle cell painful crisis. This all started about a day ago. The patient is now admitted to the hospital for sickle cell painful crisis. Initially, he was admitted to the intensive care unit, but now the patient has been transferred to regular floor on [address] as he is feeling better. The patient denies any shortness of breath or chest pain. No clinical signs of acute chest syndrome noted. He has been getting Dilaudid and oxycodone. He is complaining of fever. The rest of the review of systems is negative. PAST MEDICAL HISTORY: Sickle cell disease with multiple painful crises. Gout. PAST SURGICAL HISTORY: Cholecystectomy. ALLERGIES: NONE. MEDICATIONS PRIOR TO COMING THE HOSPITAL: Folic acid, oxycodone, allopurinol. FAMILY HISTORY: Significant for sickle cell disease. SOCIAL HISTORY: The patient does not smoke cigarettes. He occasionally drinks alcohol. PHYSICAL EXAMINATION: GENERAL: A well-developed, well-nourished male in no apparent distress. VITAL SIGNS: Temperature 96.8. Heart rate is 73, respiratory rate is 16, O2 saturation 97%. HEENT: PERRLA. EOMI, anicteric. No oral lesions noted. Sclerae are icteric. NECK: No lymphadenopathy noted. LUNGS: Clear. No wheezing, rhonchi or rales. CARDIOVASCULAR: Regular rate and rhythm. ABDOMEN: Soft, nontender. No hepatosplenomegaly. EXTREMITIES: No pedal edema. NEUROLOGIC: Awake, alert, oriented x3. SKIN: No significant lesions noted. ASSESSMENT: Sickle cell anemia with vasoocclusive painful crisis. PLAN: I have reviewed his available records, and I have discussed with the patient regarding the sickle cell painful crisis. The nasal wash is negative for influenza. It is negative for flu A and B antigen. Blood cultures so far have been negative. He does not have any more fevers. He is currently on folic acid 1 mg daily, Dilaudid 2 mg IV every 4 hours, and oxycodone 5 mg every 4 hours for pain 1-3 and oxycodone 10 mg every 8 hours for pain scale of 6-10. He is also getting hydration. He does not require any blood transfusion as his hemoglobin is more than 7. The patient does not have any evidence of acute chest syndrome. The chest x-ray shows worsening diffuse parenchymal lung disease with cardiomegaly. My recommendation is to monitor his CBC and continue the present treatment plan. Thank you for asking my opinion. MD JI Mcnally/neda , 12:07 AM , 12:19 AM [email or web address]
[2018-06-07] MEDS: Chlorhexidine Gluconate 2% 1 Pack (2 Cloths) TOPICAL SCH (03:48)
[2018-06-07] MEDS ORDERED: Chlorhexidine Gluconate 2% 1 Pack (2 Cloths) TOPICAL PRN ×2 (04:00)
[2018-06-07] MEDS ORDERED: Chlorhexidine Gluconate 2% 1 Pack (2 Cloths) TOPICAL SCH (04:00)
[2018-06-07 04:28] LABS: Baso # (Auto) 0.2 th/mm3 (0.0-0.2); Baso % (Auto) 1.1 % (0.0-2.0); Eos % (Auto) 0.1 % (0.0-4.0); Lymph # (Auto) 2.3 th/mm3 (1.0-4.8); Lymph % (Auto) 16.7 % (9.0-44.0); Mean Corpuscular Hemoglobin 29.4 pg (27.0-34.0); Mean Corpuscular Volume 81.4 fL (80.0-100.0); Mean Platelet Volume 8.3 fL (7.0-11.0); Mono # (Auto) 0.7 th/mm3 (0.0-0.9); Mono % (Auto) 4.8 % (0.0-8.0); Neut # (Auto) 10.8 th/mm3 (1.8-7.7); Neut % (Auto) 77.3 % (16.0-70.0); Platelet Count 316 th/mm3 (150-450); Red Blood Count 2.35 mil/mm3 (4.50-5.90); Red Cell Distribution Width 25.2 % (11.6-17.2)
[2018-06-07 04:29] LABS: Mean Corpuscular HGB Conc 36.1 % (32.0-36.0)
[2018-06-07 04:31] LABS: Activated Partial Thrombo Time 23.5 sec (23.4-31.7); INR 1.1 Ratio; Prothrombin Time 10.7 sec (9.8-11.6)
[2018-06-07 04:33] LABS: Hematocrit 19.1 % (39.0-51.0)
[2018-06-07 04:34] LABS: Hemoglobin 6.9 gm/dL (13.0-17.0)
[2018-06-07 04:52] LABS: Alanine Aminotransferase 37 U/L (12-78); Albumin 3.4 g/dL (3.4-5.0); Anion Gap 6 meq/L (5-15); Aspartate Aminotransferase 45 U/L (15-37); Blood Urea Nitrogen 19 mg/dL (7-18); Calcium 8.1 mg/dL (8.5-10.1); Carbon Dioxide 24.4 meq/L (21.0-32.0); Chloride 113 meq/L (98-107); Glomerular Filtration Rate 79 mL/min (>89); Glucose,Random 128 mg/dL (74-106); Magnesium 1.8 mg/dL (1.5-2.5); Potassium 5.2 meq/L (3.5-5.1); Sodium 143 meq/L (136-145)
[2018-06-07 05:00] LABS: Alkaline Phosphatase 229 U/L (45-117); Phosphorus 3.8 mg/dL (2.5-4.9); Total Protein 7.4 g/dL (6.4-8.2)
[2018-06-07 07:15] LABS: Lymphocytes 5 % (9-44); Monocytes 9 % (0-8); Myelocytes 1 % (0-0); Tallied Nucleated RBC 2 (0-0)
[2018-06-07 07:19] LABS: Howell-Jolly Bodies Present; Pappenheimer Bodies Present; Platelet Estimate Normal (Normal); Platelet Morphology Normal (Normal); Sickle Cells 2+; Target Cells 1+
[2018-06-07 07:20] LABS: Polychromasia 3.1 % (0.0-1.9)
--- NOTE | 2018-06-07 07:46 | XR ---
EXAM DATE: 06/07/2018 7:41 AM EST AGE/SEX: 33 years / Male INDICATIONS: Dizziness and back pain, sickle cell crisis. CLINICAL DATA: This is the patient's initial encounter. Patient reports that signs and symptoms have been present for 2 days and indicates a pain score of 4/10. MEDICAL/SURGICAL HISTORY: Sickle Cell disease. Cholecystectomy. COMPARISON: [facility] [place] 1[place] SINGLE [place], [place]/06/2018. . FINDINGS: A single AP view of the chest demonstrates cardiomegaly with diminished lung volumes and bibasilar de nsities. Central pulmonary vascular congestion and slight interstitial prominence. The cardiomediast inal contours are unremarkable. Osseous structures are intact. CONCLUSION: Cardiomegaly with worsening bibasilar densities greatest in the left lower lobe. Electronically signed by: Jaden Metcalf MD Board Certified Radiologist 06/07/2018 7:44 AM EST
[2018-06-07] MEDS: predniSONE 20 MG Tablet PO SCH ×2 (09:18→21:18)
[2018-06-07] MEDS: Senna/Docusate Sodium 8.6/50 MG Tablet PO SCH ×3 (09:18→21:28)
[2018-06-07] MEDS: Famotidine 20 MG Tablet PO SCH (09:19)
[2018-06-07] MEDS: Folic Acid 1 MG Tablet PO SCH (09:19)
--- NOTE | 2018-06-07 11:44 | P.PNONC ---
Subjective Interval history: Patient sitting up in bed in no acute distress. Reports an episode of chest pain lasting approximately 2 hours this morning while at rest. Patient denies any previous history of cardiac issues. Denies any shortness of breath, nausea/ vomiting or diarrhea. Patient states that his pain is centralized to his back, reports that the Dilaudid is wearing off approximately an hour before he can have the next dose and reports that he takes Roxicodone 10 mg every 6 hours at home and is receiving oxycodone 5 mg every 8 hours here. Patient reports last hospitalization was in February, states that he generally receives blood products when hospitalized for sickle cell crisis. Objective Vital Signs/Intake & Output: Vital Signs 06/06/18 12:00 06/06/18 12:03 06/06/18 13:00 Temperature 98.3 F Pulse Rate 68 59 L 59 L Respiratory Rate 30 H 35 H 29 H Blood Pressure 141/72 H 141/72 H 142/75 H Pulse Oximetry 100 100 100 06/06/18 14:00 06/06/18 14:55 06/06/18 15:00 Temperature Pulse Rate 65 68 67 Respiratory Rate 66 H 32 H Blood Pressure 130/72 115/58 L Pulse Oximetry 100 99 06/06/18 16:00 06/06/18 18:00 06/06/18 20:00 Temperature 97.6 F 96.8 F L Pulse Rate 81 83 60 Respiratory Rate 29 H 20 Blood Pressure 118/60 110/59 L Pulse Oximetry 94 L 98 06/06/18 20:42 06/06/18 21:31 06/07/18 00:00 Temperature 98.2 F Pulse Rate 73 62 Respiratory Rate 16 15 17 Blood Pressure 129/71 Pulse Oximetry 97 95 06/07/18 04:00 06/07/18 05:00 06/07/18 05:30 Temperature 98.2 F Pulse Rate 70 Respiratory Rate 18 20 20 Blood Pressure 126/63 Pulse Oximetry 96 06/07/18 08:00 06/07/18 08:05 06/07/18 08:41 Temperature 97.3 F L Pulse Rate 58 L 58 L Respiratory Rate 12 20 16 Blood Pressure 145/73 H Pulse Oximetry 99 99 06/07/18 11:12 Temperature Pulse Rate Respiratory Rate 14 Blood Pressure Pulse Oximetry Intake & Output 06/06/18 06/07/18 06/07/18 18:59 06:59 18:59 Intake Total 1000 / 1000 2980 / 2980 1000 / 1000 Output Total 1700 / 1700 1900 / 1900 Balance -700 / -700 1080 / 1080 1000 / 1000 Weight 65.4 kg Intake: IV 1000 / 1000 1000 / 1000 1000 / 1000 NS Inj 1,000 ML @ 125 mls/hr IV 1000 / 1000 1000 / 1000 1000 / 1000 .CONT .Q8H [facility] Rx#:[id number] Oral 680 / 680 Other 1300 / 1300 Output: Urine 1700 / 1700 1900 / 1900 Other: Date of Last Bowel Movement 06/05/18 06/06/18 06/06/18 # Incontinent Bowel Movements 0 Result Diagrams: 06/07/18 04:01 06/07/18 04:01 Laboratory Results: Laboratory Results - last 24 hr 06/06/18 06/06/18 06/06/18 08:30 11:20 11:20 WBC RBC Hgb Hct MCV MCH MCHC RDW Plt Count MPV Prelim Diff (Auto) Neut % (Auto) Lymph % (Auto) Nolan % (Auto) Eos % (Auto) Baso % (Auto) Neut # (Auto) Lymph # (Auto) Nolan # (Auto) Eos # (Auto) Baso # (Auto) WBC Differential Seg Neuts % (Manual) Band Neuts % (Manual) Lymphocytes % (Manual) Monocytes % (Manual) Myelocytes % (Man) Abs Neuts (Manual) Nucleated RBCs/100 WBC Differential Comment Platelet Estimate Platelet Morphology Polychromasia Pappenheimer Bodies Sickle Cells Target Cells [place] Bodies Retic Count 15.1 H Absolute Retic 317.4 H PT INR APTT Puncture Site Patient Temperature O2 Saturation ABG pH ABG pCO2 ABG pO2 ABG HCO3 ABG O2 Content ABG Base Excess ABG Methemoglobin Mando Test Hemoglobin Carboxyhemoglobin O2 Delivery Device Liter Flow Critical Value Sodium Potassium Chloride Carbon Dioxide Anion Gap BUN Creatinine Estimated GFR POC Glucose Random Glucose Lactic Acid Uric Acid Calcium Phosphorus Magnesium Total Bilirubin Direct Bilirubin Indirect Bilirubin AST ALT Alkaline Phosphatase Lactate Dehydrogenase Total Creatine Kinase 64 Total Protein Albumin Urine Eosinophils Nasal Screen MRSA (PCR) Not detected Hepatitis A IgM Ab Hep Bs Antigen Hep B Core IgM Ab Hep C IgG Ab 06/06/18 06/06/18 06/06/18 11:20 11:20 11:20 WBC RBC Hgb Hct MCV MCH MCHC RDW Plt Count MPV Prelim Diff (Auto) Neut % (Auto) Lymph % (Auto) Nolan % (Auto) Eos % (Auto) Baso % (Auto) Neut # (Auto) Lymph # (Auto) Nolan # (Auto) Eos # (Auto) Baso # (Auto) WBC Differential Seg Neuts % (Manual) Band Neuts % (Manual) Lymphocytes % (Manual) Monocytes % (Manual) Myelocytes % (Man) Abs Neuts (Manual) Nucleated RBCs/100 WBC Differential Comment Platelet Estimate Platelet Morphology Polychromasia Pappenheimer Bodies Sickle Cells Target Cells [place] Bodies Retic Count Absolute Retic PT INR APTT Puncture Site Patient Temperature O2 Saturation ABG pH ABG pCO2 ABG pO2 ABG HCO3 ABG O2 Content ABG Base Excess ABG Methemoglobin Mando Test Hemoglobin Carboxyhemoglobin O2 Delivery Device Liter Flow Critical Value Sodium Potassium Chloride Carbon Dioxide Anion Gap BUN Creatinine Estimated GFR POC Glucose Random Glucose Lactic Acid Uric Acid 11.2 H Calcium Phosphorus Magnesium Total Bilirubin 8.9 H Direct Bilirubin 0.7 H Indirect Bilirubin 8.2 H AST ALT Alkaline Phosphatase Lactate Dehydrogenase 676 H Total Creatine Kinase 61 Total Protein Albumin Urine Eosinophils Nasal Screen MRSA (PCR) Hepatitis A IgM Ab Hep Bs Antigen Hep B Core IgM Ab Hep C IgG Ab 06/06/18 06/06/18 06/06/18 11:20 12:07 12:40 WBC RBC Hgb Hct MCV MCH MCHC RDW Plt Count MPV Prelim Diff (Auto) Neut % (Auto) Lymph % (Auto) Nolan % (Auto) Eos % (Auto) Baso % (Auto) Neut # (Auto) Lymph # (Auto) Nolan # (Auto) Eos # (Auto) Baso # (Auto) WBC Differential Seg Neuts % (Manual) Band Neuts % (Manual) Lymphocytes % (Manual) Monocytes % (Manual) Myelocytes % (Man) Abs Neuts (Manual) Nucleated RBCs/100 WBC Differential Comment Platelet Estimate Platelet Morphology Polychromasia Pappenheimer Bodies Sickle Cells Target Cells [place] Bodies Retic Count Absolute Retic PT INR APTT Puncture Site Patient Temperature O2 Saturation ABG pH ABG pCO2 ABG pO2 ABG HCO3 ABG O2 Content ABG Base Excess ABG Methemoglobin Mando Test Hemoglobin Carboxyhemoglobin O2 Delivery Device Liter Flow Critical Value Sodium Potassium Chloride Carbon Dioxide Anion Gap BUN Creatinine Estimated GFR POC Glucose 100 Random Glucose Lactic Acid Uric Acid Calcium Phosphorus Magnesium Total Bilirubin Direct Bilirubin Indirect Bilirubin AST ALT Alkaline Phosphatase Lactate Dehydrogenase Total Creatine Kinase Total Protein Albumin Urine Eosinophils None seen Nasal Screen MRSA (PCR) Hepatitis A IgM Ab Nonreactive Hep Bs Antigen Nonreactive Hep B Core IgM Ab Nonreactive Hep C IgG Ab Nonreactive 06/06/18 06/06/18 06/07/18 13:28 17:48 00:58 WBC RBC Hgb Hct MCV MCH MCHC RDW Plt Count MPV Prelim Diff (Auto) Neut % (Auto) Lymph % (Auto) Nolan % (Auto) Eos % (Auto) Baso % (Auto) Neut # (Auto) Lymph # (Auto) Nolan # (Auto) Eos # (Auto) Baso # (Auto) WBC Differential Seg Neuts % (Manual) Band Neuts % (Manual) Lymphocytes % (Manual) Monocytes % (Manual) Myelocytes % (Man) Abs Neuts (Manual) Nucleated RBCs/100 WBC Differential Comment Platelet Estimate Platelet Morphology Polychromasia Pappenheimer Bodies Sickle Cells Target Cells [place] Bodies Retic Count Absolute Retic PT INR APTT Puncture Site Left radial Patient Temperature 98.6 O2 Saturation 93 ABG pH 7.33 L ABG pCO2 43 H ABG pO2 129 H ABG HCO3 22 ABG O2 Content 9.3 L ABG Base Excess -3.4 L ABG Methemoglobin 2.6 H Mando Test Present Hemoglobin 6.9 L* Carboxyhemoglobin 4.5 H O2 Delivery Device Nasal cannula Liter Flow 4.00 Critical Value Yes Sodium Potassium Chloride Carbon Dioxide Anion Gap BUN Creatinine Estimated GFR POC Glucose 122 H 146 H Random Glucose Lactic Acid Uric Acid Calcium Phosphorus Magnesium Total Bilirubin Direct Bilirubin Indirect Bilirubin AST ALT Alkaline Phosphatase Lactate Dehydrogenase Total Creatine Kinase Total Protein Albumin Urine Eosinophils Nasal Screen MRSA (PCR) Hepatitis A IgM Ab Hep Bs Antigen Hep B Core IgM Ab Hep C IgG Ab 06/07/18 06/07/18 06/07/18 04:01 04:01 04:01 WBC 14.0 H RBC 2.35 L Hgb 6.9 L* Hct 19.1 L* MCV 81.4 MCH 29.4 MCHC 36.1 H RDW 25.2 H Plt Count 316 MPV 8.3 Prelim Diff (Auto) Slide review pending Neut % (Auto) 77.3 H Lymph % (Auto) 16.7 Nolan % (Auto) 4.8 Eos % (Auto) 0.1 Baso % (Auto) 1.1 Neut # (Auto) 10.8 H Lymph # (Auto) 2.3 Nolan # (Auto) 0.7 Eos # (Auto) 0.0 Baso # (Auto) 0.2 WBC Differential Manual diff final Seg Neuts % (Manual) 84 H Band Neuts % (Manual) 1 Lymphocytes % (Manual) 5 L Monocytes % (Manual) 9 H Myelocytes % (Man) 1 H Abs Neuts (Manual) 12.0 H Nucleated RBCs/100 WBC 2 H Differential Comment . Platelet Estimate Normal Platelet Morphology Normal Polychromasia 3.1 H Pappenheimer Bodies Present H Sickle Cells 2+ H Target Cells 1+ H [place] Bodies Present H Retic Count Absolute Retic PT 10.7 INR 1.1 APTT 23.5 Puncture Site Patient Temperature O2 Saturation ABG pH ABG pCO2 ABG pO2 ABG HCO3 ABG O2 Content ABG Base Excess ABG Methemoglobin Mando Test Hemoglobin Carboxyhemoglobin O2 Delivery Device Liter Flow Critical Value Sodium 143 Potassium 5.2 H Chloride 113 H Carbon Dioxide 24.4 Anion Gap 6 BUN 19 H Creatinine 1.27 Estimated GFR 79 L POC Glucose Random Glucose 128 H Lactic Acid Uric Acid Calcium 8.1 L Phosphorus 3.8 Magnesium 1.8 Total Bilirubin 6.1 H Direct Bilirubin Indirect Bilirubin AST 45 H ALT 37 Alkaline Phosphatase 229 H Lactate Dehydrogenase Total Creatine Kinase Total Protein 7.4 D Albumin 3.4 Urine Eosinophils Nasal Screen MRSA (PCR) Hepatitis A IgM Ab Hep Bs Antigen Hep B Core IgM Ab Hep C IgG Ab 06/07/18 06/07/18 04:01 07:48 WBC RBC Hgb Hct MCV MCH MCHC RDW Plt Count MPV Prelim Diff (Auto) Neut % (Auto) Lymph % (Auto) Nolan % (Auto) Eos % (Auto) Baso % (Auto) Neut # (Auto) Lymph # (Auto) Nolan # (Auto) Eos # (Auto) Baso # (Auto) WBC Differential Seg Neuts % (Manual) Band Neuts % (Manual) Lymphocytes % (Manual) Monocytes % (Manual) Myelocytes % (Man) Abs Neuts (Manual) Nucleated RBCs/100 WBC Differential Comment Platelet Estimate Platelet Morphology Polychromasia Pappenheimer Bodies Sickle Cells Target Cells [place] Bodies Retic Count Absolute Retic PT INR APTT Puncture Site Patient Temperature O2 Saturation ABG pH ABG pCO2 ABG pO2 ABG HCO3 ABG O2 Content ABG Base Excess ABG Methemoglobin Mando Test Hemoglobin Carboxyhemoglobin O2 Delivery Device Liter Flow Critical Value Sodium Potassium Chloride Carbon Dioxide Anion Gap BUN Creatinine Estimated GFR POC Glucose 128 H Random Glucose Lactic Acid 0.9 Uric Acid Calcium Phosphorus Magnesium Total Bilirubin Direct Bilirubin Indirect Bilirubin AST ALT Alkaline Phosphatase Lactate Dehydrogenase Total Creatine Kinase Total Protein Albumin Urine Eosinophils Nasal Screen MRSA (PCR) Hepatitis A IgM Ab Hep Bs Antigen Hep B Core IgM Ab Hep C IgG Ab Culture Results: Microbiology 06/06/18 11:20 Aerobic Blood Culture - Preliminary Blood - Peripheral No growth in 1 day Anaerobic Blood Culture - Preliminary No growth in 1 day 06/06/18 11:20 Aerobic Blood Culture - Preliminary Blood - Peripheral No growth in 1 day Anaerobic Blood Culture - Preliminary No growth in 1 day 06/06/18 10:10 Influenza Types A,B Antigen - Final Nasal Wash Negative for FLU A and B antigen Infection due to influenza A or B cannot be ruled out since the antigen present in the sample may be below the detection limit of the test. Imaging Studies: Impressions Abdomen Ultrasound 06/06/18 00:00 CONCLUSION: 1. Abnormal appearance of left kidney/spleen. Recommend CT scan of the abdomen/ pelvis for further characterization. 2. Small left pleural effusion. 3. Status post cholecystectomy. Chest X-Ray 06/07/18 07:21 CONCLUSION: Cardiomegaly with worsening bibasilar densities greatest in the left lower lobe. Medications: Active Medications Generic Name Dose Route Start Last Admin Trade Name Freq PRN Reason Stop Dose Admin Albuterol 1 ampul 06/06/18 07:45 06/07/18 08:28 Duoneb Neb ([facility]) NEB 1 ampul Q6HR NEB [facility] Administration Chlorhexidine Gluconate 3 pack 06/07/18 04:00 06/07/18 03:48 Chlorhexidine 2% Cloth TOPICAL 06/12/18 03:59 Not Given DAILY@0400 [facility] Famotidine 20 mg 06/06/18 09:00 06/07/18 09:19 Pepcid PO 20 mg DAILY [facility] Administration Folic Acid 1 mg 06/06/18 09:00 06/07/18 09:19 Folic Acid PO 1 mg DAILY [facility] Administration Hydromorphone HCl 2 mg 06/06/18 09:14 06/07/18 09:10 Dilaudid Pf Inj IV.PUSH 2 mg Q4H PRN Administration PAIN 6-10;IF UNABLE TO TAKE PO Sodium Chloride 1,000 mls @ 125 mls/hr 06/06/18 07:30 06/07/18 09:18 Ns Inj IV.CONT 125 mls/hr .Q8H [facility] Administration Insulin Aspart 0 unit 06/06/18 12:00 06/07/18 05:54 Novolog Insulin Correctional Sugar Inj SQ Not Given Q6HR [facility] Protocol Oxycodone HCl 5 mg 06/06/18 07:24 06/07/18 03:49 Roxicodone PO 5 mg Q4H PRN Administration Pain 1 through 5 Oxycodone HCl 10 mg 06/06/18 09:30 06/06/18 20:12 Roxicodone PO 10 mg Q8HR PRN Administration PAIN 6-10 Prednisone 20 mg 06/06/18 09:00 06/07/18 09:18 Deltasone PO 06/11/18 08:59 20 mg BID [facility] Administration Senna/Docusate Sodium 1 tab 06/06/18 09:00 06/07/18 09:18 Latrice-Colace PO 1 tab BID [facility] Administration Sodium Chloride 2 ml 06/06/18 09:00 06/07/18 09:19 Ns Flush IV.FLUSH 2 ml BID [facility] Administration Sodium Chloride 2 ml 06/06/18 09:00 06/07/18 09:19 Ns Flush IV.FLUSH 2 ml BID [facility] Administration Objective Remarks: GENERAL: Well-nourished, well-developed male patient. SKIN: Warm and dry. HEAD: Normocephalic. EYES: Scleral icterus noted. No injection or drainage. NECK: Supple, trachea midline. CARDIOVASCULAR: Regular rate and rhythm without murmurs. RESPIRATORY: Posterior breath sounds clear and equal bilaterally. No accessory muscle use. GASTROINTESTINAL: Abdomen soft, non-tender, nondistended. EXTREMITIES: No cyanosis, or edema. MUSCULOSKELETAL: Adequate muscle tone. NEUROLOGICAL: No obvious focal deficit. Awake, alert, and oriented x3. PSYCHIATRIC: Appropriate mood and affect; insight and judgment normal. Assessment/Plan - Plan Mr. Manning is a pleasant 33-year-old male who was admitted to the hospital for sickle cell crisis with fever and back pain times 1 day. No evidence of acute chest syndrome on admission. Plan: 1. Chest pain, no previous history. Will order EKG with serial cardiac enzymes. 2. Anemia, hemoglobin 6.9 g/dL. Patient symptomatic with chest pain this morning will transfuse with 1 unit of PRBCs. 3. Pain, will adjust treatment. Dilaudid 2 mg IV every 4 hours as needed will be adjusted to 2 mg IV every 3 hours as needed. 4. Continue supportive measures. - Attending Statement The exam, history, and the medical decision-making described in the above note were completed with the assistance of the mid-level provider. I reviewed and agree with the findings presented. I attest that I had a [id number] encounter with the patient on the same day, and personally performed and documented my assessment and findings in the medical record. Patient states that his pain is improving. Current narcotic seems to be helping his pain. Patient has febrile illness. Start antibiotic No signs of acute chest syndrome Pack RBC today
[2018-06-07] MEDS ORDERED: Acetaminophen 325 MG Tablet PO PRN (11:45)
[2018-06-07] MEDS ORDERED: Sodium Chlor 0.9% Inj 250 ML IV.SIG SCH (12:00)
--- NOTE | 2018-06-07 14:06 | P.PNIM ---
Subjective Interval history: Appears more comfortable, not short of breath but appears weak. No nausea or vomiting. Afebrile. No obvious bleeding. Physical Exam Vital signs: Vital Signs 06/06/18 14:00 06/06/18 14:55 06/06/18 15:00 Temperature Pulse Rate 65 68 67 Respiratory Rate 66 H 32 H Blood Pressure 130/72 115/58 L Pulse Oximetry 100 99 06/06/18 16:00 06/06/18 18:00 06/06/18 20:00 Temperature 97.6 F 96.8 F L Pulse Rate 81 83 60 Respiratory Rate 29 H 20 Blood Pressure 118/60 110/59 L Pulse Oximetry 94 L 98 06/06/18 20:42 06/06/18 21:31 06/07/18 00:00 Temperature 98.2 F Pulse Rate 73 62 Respiratory Rate 16 15 17 Blood Pressure 129/71 Pulse Oximetry 97 95 06/07/18 04:00 06/07/18 05:00 06/07/18 05:30 Temperature 98.2 F Pulse Rate 70 Respiratory Rate 18 20 20 Blood Pressure 126/63 Pulse Oximetry 96 06/07/18 08:00 06/07/18 08:05 06/07/18 08:41 Temperature 97.3 F L Pulse Rate 58 L 58 L Respiratory Rate 12 20 16 Blood Pressure 145/73 H Pulse Oximetry 99 99 06/07/18 11:12 06/07/18 12:00 06/07/18 13:20 Temperature 98.2 F 98.6 F Pulse Rate 64 64 Respiratory Rate 14 12 16 Blood Pressure 136/74 139/77 Pulse Oximetry 97 97 06/07/18 13:35 Temperature 98.7 F Pulse Rate 66 Respiratory Rate 14 Blood Pressure 137/77 Pulse Oximetry 97 Intake & Output 06/06/18 06/07/18 06/07/18 18:59 06:59 18:59 Intake Total 1000 / 1000 2980 / 2980 1000 / 1000 Output Total 1700 / 1700 1900 / 1900 Balance -700 / -700 1080 / 1080 1000 / 1000 Weight 65.4 kg Intake: IV 1000 / 1000 1000 / 1000 1000 / 1000 NS Inj 1,000 ML @ 125 mls/hr IV 1000 / 1000 1000 / 1000 1000 / 1000 .CONT .Q8H [facility] Rx#:[id number] Oral 680 / 680 Other 1300 / 1300 Intake (Blood Product) Amt 0 / 0 Rbc As-3 Leukoreduced Unit 0 / 0 [id number] Output: Urine 1700 / 1700 1900 / 1900 Other: Date of Last Bowel Movement 06/05/18 06/06/18 06/06/18 # Incontinent Bowel Movements 0 Narrative: In distress Icteric sclera, mild jaundice, pale conjunctivae Tachycardic, hyperdynamic precordium Crackles on the left base, no wheezing Abdomen soft nontender No edema Alert awake and oriented x3, no focal deficits. Results Labs CBC & Chem 7: 06/07/18 04:01 06/07/18 04:01 Labs: Microbiology 06/06/18 11:20 Blood - Peripheral Aerobic Blood Culture - Preliminary No growth in 1 day 06/06/18 11:20 Blood - Peripheral Anaerobic Blood Culture - Preliminary No growth in 1 day 06/06/18 11:20 Blood - Peripheral Aerobic Blood Culture - Preliminary No growth in 1 day 06/06/18 11:20 Blood - Peripheral Anaerobic Blood Culture - Preliminary No growth in 1 day 06/06/18 10:10 Nasal Wash Influenza Types A,B Antigen - Final Negative for FLU A and B antigen Infection due to influenza A or B cannot be ruled out since the antigen present in the sample may be below the detection limit of the test. Imaging Imaging: Impressions Abdomen Ultrasound 06/06/18 00:00 CONCLUSION: 1. Abnormal appearance of left kidney/spleen. Recommend CT scan of the abdomen/ pelvis for further characterization. 2. Small left pleural effusion. 3. Status post cholecystectomy. Chest X-Ray 06/07/18 07:21 CONCLUSION: Cardiomegaly with worsening bibasilar densities greatest in the left lower lobe. Assessment and Plan Plan This is a 33/M presenting with sickle cell crisis. Sickle cell with acute vaso-occlusive crisis-pain resolved, serial EKG and troponin. Dilaudid 2 mg every 4 hours for now, continue , increase IVF, continue oral pain medications. Anemia-hemoglobin 6.9, transfuse 1 unit packed red blood red cells, hematology following. Continue folic acid. Follow-up workup. Recheck CBC Hypoxemia, possibly begin acute chest syndrome-resolving, continue oxygen support. Chest pain likely secondary to vaso-occlusive crisis, troponin negative, EKG showed sinus rhythm, echocardiogram showed ejection fraction 55%, chest x-ray shows worsening bibasilar densities greater in the left lower lobe. Empiric ceftriaxone for now. Continue IVF. Hyperbilirubinemia-likely secondary to hemolysis, monitor for now. Improving. Hyperuricemia-could be from hemolysis? Recheck uric acid tomorrow. Placed on prednisone by biomedical equipment tech. Acute renal failure resolved-continue IVF Hyperkalemia-recheck BMP. -GI -famotidine -DVT -Lovenox once hemoglobin is stable. Progress Note: Quality VTE Deep Vein Thrombosis/Pulmonary Embolism Present on Admission: No
[2018-06-08] MEDS: Insulin NovoLOG Aspart Correctional Sugar Inj SQ SCH ×4 (00:36→17:32)
[2018-06-08] MEDS: HYDROmorphone PF Inj 2 MG/ML Vial IV.PUSH PRN ×8 (00:37→23:23)
[2018-06-08 01:20] LABS: Anion Gap 6 meq/L (5-15); Blood Urea Nitrogen 19 mg/dL (7-18); Calcium 8.4 mg/dL (8.5-10.1); Carbon Dioxide 25.3 meq/L (21.0-32.0); Chloride 114 meq/L (98-107); Glomerular Filtration Rate 89 mL/min (>89); Glucose,Random 128 mg/dL (74-106); Potassium 4.7 meq/L (3.5-5.1); Sodium 145 meq/L (136-145)
[2018-06-08] MEDS: Chlorhexidine Gluconate 2% 1 Pack (2 Cloths) TOPICAL SCH (03:50)
[2018-06-08] MEDS: Sod Chloride 0.9% Inj 1,000 ML IV.CONT SCH ×4 (03:51→22:07)
--- NOTE | 2018-06-08 07:20 | P.PNIM ---
Subjective Interval history: f/u; sickle cell painful crisis in no acute distress. says that the pain is getting better. noted that is currently on three liters of oxygen via N/C. has mild occasional cough with no fever. d/w the RN at the bedside. Physical Exam Vital signs: Vital Signs 06/07/18 08:00 06/07/18 08:05 06/07/18 08:41 Temperature 97.3 F L Pulse Rate 58 L 58 L Respiratory Rate 12 20 16 Blood Pressure 145/73 H Pulse Oximetry 99 99 06/07/18 11:12 06/07/18 12:00 06/07/18 13:20 Temperature 98.2 F 98.6 F Pulse Rate 64 64 Respiratory Rate 14 12 16 Blood Pressure 136/74 139/77 Pulse Oximetry 97 97 06/07/18 13:35 06/07/18 13:50 06/07/18 16:00 Temperature 98.7 F 98.4 F 98.8 F Pulse Rate 66 77 68 Respiratory Rate 14 12 14 Blood Pressure 137/77 139/78 148/79 H Pulse Oximetry 97 96 97 06/07/18 16:50 06/07/18 17:34 06/07/18 20:38 Temperature 98.8 F Pulse Rate 77 68 72 Respiratory Rate 18 14 17 Blood Pressure 148/79 H Pulse Oximetry 97 96 06/08/18 00:00 06/08/18 04:08 Temperature 97.7 F Pulse Rate 53 L 71 Respiratory Rate 18 18 Blood Pressure 100/72 Pulse Oximetry 96 Intake & Output 06/07/18 06/08/18 06/08/18 18:59 06:59 18:59 Intake Total 2750 / 2750 4100 / 4100 Output Total 1300 / 1300 Balance 1450 / 1450 4100 / 4100 Intake: IV 1999 4100 / 4100 NS Inj 1,000 ML @ 150 mls/hr IV 1999 / 1999 4000 / 4000 .CONT .Q6H40M [facility] Rx#:[id number] Rocephin Inj 1,000 MG In NS Inj 100 / 100 100 ML @ 200 mls/hr IV.SIG Q24H [facility] Rx#:[id number] Oral 350 / 350 Intake (Blood Product) Amt 400 / 400 Rbc As-3 Leukoreduced Unit 400 / 400 [id number] Output: Urine 1300 / 1300 Other: Date of Last Bowel Movement 06/06/18 Constitutional no acute distress Routine Respiratory Exam Present CTA bilaterally Routine Cardiovascular Exam Present RRR Routine Abdominal Exam Present soft Routine Extremities Exam Comments: no pedal edema. Routine Neurological Exam Present alert and oriented X3 Results Labs CBC & Chem 7: 06/07/18 04:01 06/08/18 00:35 Labs: Microbiology 06/06/18 11:20 Blood - Peripheral Aerobic Blood Culture - Preliminary No growth in 1 day 06/06/18 11:20 Blood - Peripheral Anaerobic Blood Culture - Preliminary No growth in 1 day 06/06/18 11:20 Blood - Peripheral Aerobic Blood Culture - Preliminary No growth in 1 day 06/06/18 11:20 Blood - Peripheral Anaerobic Blood Culture - Preliminary No growth in 1 day Imaging Imaging: Impressions Chest X-Ray 06/07/18 07:21 CONCLUSION: Cardiomegaly with worsening bibasilar densities greatest in the left lower lobe. Assessment and Plan Plan This is a 33/M presenting with sickle cell crisis. Sickle cell with acute vaso-occlusive crisis-pain improving. continue IV fluid, folic acid and pain control. Hematology following. Anemia-hemoglobin 6.9, transfused 1 unit packed red blood red cells, hematology following. Continue folic acid. Follow-up workup. Recheck CBC today. Hypoxemia, possibly begin acute chest syndrome-resolving, continue oxygen support. Chest pain likely secondary to vaso-occlusive crisis, troponin negative, EKG showed sinus rhythm, echocardiogram showed ejection fraction 55%, chest x-ray shows worsening bibasilar densities greater in the left lower lobe. Empiric ceftriaxone for now. Continue IVF. will titrate down the oxygen to keep O2 sat> 90%. Hyperbilirubinemia-likely secondary to hemolysis, monitor for now. Hyperuricemia-could be from hemolysis? Recheck uric acid today. Placed on prednisone by client professional. Acute renal failure resolved-continue IVF Hyperkalemia-recheck BMP today. -GI -famotidine -DVT -Lovenox once hemoglobin is stable. Progress Note: Quality VTE Deep Vein Thrombosis/Pulmonary Embolism Present on Admission: No
[2018-06-08] MEDS: Famotidine 20 MG Tablet PO SCH (08:17)
[2018-06-08] MEDS: Senna/Docusate Sodium 8.6/50 MG Tablet PO SCH ×2 (08:17→20:29)
[2018-06-08] MEDS: predniSONE 20 MG Tablet PO SCH ×2 (08:18→20:20)
[2018-06-08] MEDS: Folic Acid 1 MG Tablet PO SCH (08:18)
[2018-06-08 11:27] LABS: Baso # (Auto) 0.1 th/mm3 (0.0-0.2); Baso % (Auto) 0.6 % (0.0-2.0); Hematocrit 27.2 % (39.0-51.0); Hemoglobin 9.2 gm/dL (13.0-17.0); Lymph # (Auto) 2.5 th/mm3 (1.0-4.8); Lymph % (Auto) 15.5 % (9.0-44.0); Mean Corpuscular HGB Conc 33.7 % (32.0-36.0); Mean Corpuscular Hemoglobin 28.7 pg (27.0-34.0); Mean Corpuscular Volume 85.2 fL (80.0-100.0); Mono # (Auto) 1.1 th/mm3 (0.0-0.9); Mono % (Auto) 6.6 % (0.0-8.0); Neut # (Auto) 12.5 th/mm3 (1.8-7.7); Neut % (Auto) 77.3 % (16.0-70.0); Platelet Count 382 th/mm3 (150-450); Red Blood Count 3.19 mil/mm3 (4.50-5.90); White Blood Count 16.1 th/mm3 (4.0-11.0)
[2018-06-08 11:44] LABS: Alanine Aminotransferase 28 U/L (12-78); Albumin 3.3 g/dL (3.4-5.0); Alkaline Phosphatase 202 U/L (45-117); Anion Gap 6 meq/L (5-15); Aspartate Aminotransferase 36 U/L (15-37); Blood Urea Nitrogen 18 mg/dL (7-18); Calcium 8.6 mg/dL (8.5-10.1); Carbon Dioxide 24.1 meq/L (21.0-32.0); Chloride 113 meq/L (98-107); Glomerular Filtration Rate Greater Than 89 mL/min (>89); Glucose,Random 103 mg/dL (74-106); Lactate Dehydrogenase 687 U/L (87-241); Potassium 5.6 meq/L (3.5-5.1); Sodium 143 meq/L (136-145); Total Protein 7.6 g/dL (6.4-8.2); Uric Acid 10.7 mg/dl (2.6-7.2)
[2018-06-08 12:51] LABS: Lymphocytes 7 % (9-44); Monocytes 8 % (0-8); Platelet Estimate Normal (Normal); Tallied Nucleated RBC 3 (0-0)
[2018-06-08 12:52] LABS: Platelet Morphology Normal (Normal); Sickle Cells 1+; Target Cells 1+
[2018-06-08 12:53] LABS: Pappenheimer Bodies Present
[2018-06-08 12:54] LABS: Polychromasia 3.1 % (0.0-1.9)
[2018-06-08 12:55] LABS: Howell-Jolly Bodies Present
--- NOTE | 2018-06-08 15:20 | ECG ---
Date Performed: 06/07/2018 Time Performed: 14:48:13 PTAGE: 33 years EKG: Sinus rhythm POSSIBLE LEFT VENTRICULAR HYPERTROPHY ABNORMAL ECG Since PREVIOUS TRACING , no significant change noted PREVIOUS TRACIN05/20/2011 04.47 DOCTOR: Juan A Chanel Interpretating Date/Time 06/08/2018 15:19:52
--- NOTE | 2018-06-08 16:06 | P.PNONC ---
Subjective Interval history: Patient sitting up in chair at bedside, in no acute distress. States that he just took a shower and tolerated well. Denies any chest pain or shortness of breath. Reports back pain that is relieved by current pain medication regimen. Objective Vital Signs/Intake & Output: Vital Signs 06/07/18 16:50 06/07/18 17:34 06/07/18 20:38 Temperature 98.8 F Pulse Rate 77 68 72 Respiratory Rate 18 14 17 Blood Pressure 148/79 H Pulse Oximetry 97 96 06/08/18 00:00 06/08/18 04:08 06/08/18 08:00 Temperature 97.7 F 98.8 F Pulse Rate 53 L 71 72 Respiratory Rate 18 18 14 Blood Pressure 100/72 132/88 Pulse Oximetry 96 97 06/08/18 09:52 06/08/18 12:00 06/08/18 15:44 Temperature 98.2 F Pulse Rate 52 L 83 68 Respiratory Rate 16 14 16 Blood Pressure 162/86 H Pulse Oximetry 100 98 Intake & Output 06/07/18 06/08/18 06/08/18 18:59 06:59 18:59 Intake Total 2750 / 2750 4100 / 4100 Output Total 1300 / 1300 2200 / 2200 Balance 1450 / 1450 1900 / 1900 Weight 65.4 kg Intake: IV 1999 4100 / 4100 NS Inj 1,000 ML @ 150 mls/hr IV 1999 / 1999 4000 / 4000 .CONT .Q6H40M [facility] Rx#:[id number] Rocephin Inj 1,000 MG In NS Inj 100 / 100 100 ML @ 200 mls/hr IV.SIG Q24H [facility] Rx#:[id number] Oral 350 / 350 Intake (Blood Product) Amt 400 / 400 Rbc As-3 Leukoreduced Unit 400 / 400 [id number] Output: Urine 1300 / 1300 2200 / 2200 Other: Date of Last Bowel Movement 06/06/18 06/08/18 Result Diagrams: 06/09/18 08:06 06/09/18 08:06 Laboratory Results: Laboratory Results - last 24 hr 06/06/18 06/07/18 06/07/18 08:16 17:37 18:59 WBC RBC Hgb Hct MCV MCH MCHC RDW Plt Count MPV Prelim Diff (Auto) Neut % (Auto) Lymph % (Auto) [place] % (Auto) Eos % (Auto) Baso % (Auto) Neut # (Auto) Lymph # (Auto) [place] # (Auto) Eos # (Auto) Baso # (Auto) WBC Differential Seg Neuts % (Manual) Band Neuts % (Manual) Lymphocytes % (Manual) Monocytes % (Manual) Abs Neuts (Manual) Nucleated RBCs/100 WBC Differential Comment Platelet Estimate Platelet Morphology Polychromasia Pappenheimer Bodies Sickle Cells Target Cells [place] Bodies Sodium Potassium Chloride Carbon Dioxide Anion Gap BUN Creatinine Estimated GFR POC Glucose 115 H Random Glucose Uric Acid Calcium Total Bilirubin Direct Bilirubin Indirect Bilirubin AST ALT Alkaline Phosphatase Lactate Dehydrogenase Troponin I Less than 0.02 L Total Protein Albumin MTS Gel Crossmatch See Detail 06/08/18 06/08/18 06/08/18 00:13 00:35 06:10 WBC RBC Hgb Hct MCV MCH MCHC RDW Plt Count MPV Prelim Diff (Auto) Neut % (Auto) Lymph % (Auto) [place] % (Auto) Eos % (Auto) Baso % (Auto) Neut # (Auto) Lymph # (Auto) [place] # (Auto) Eos # (Auto) Baso # (Auto) WBC Differential Seg Neuts % (Manual) Band Neuts % (Manual) Lymphocytes % (Manual) Monocytes % (Manual) Abs Neuts (Manual) Nucleated RBCs/100 WBC Differential Comment Platelet Estimate Platelet Morphology Polychromasia [place]heimer Bodies Sickle Cells Target Cells [place] Bodies Sodium 145 Potassium 4.7 Chloride 114 H Carbon Dioxide 25.3 Anion Gap 6 BUN 19 H Creatinine 1.14 Estimated GFR 89 POC Glucose 137 H 139 H Random Glucose 128 H Uric Acid Calcium 8.4 L Total Bilirubin Direct Bilirubin Indirect Bilirubin AST ALT Alkaline Phosphatase Lactate Dehydrogenase Troponin I Less than 0.02 L Total Protein Albumin MTS Gel Crossmatch 06/08/18 06/08/18 06/08/18 08:27 09:51 09:51 WBC 16.1 H RBC 3.19 L Hgb 9.2 L D Hct 27.2 L MCV 85.2 D MCH 28.7 MCHC 33.7 RDW 22.0 H D Plt Count 382 MPV 9.0 Prelim Diff (Auto) Slide review pending Neut % (Auto) 77.3 H Lymph % (Auto) 15.5 [place] % (Auto) 6.6 Eos % (Auto) 0.0 Baso % (Auto) 0.6 Neut # (Auto) 12.5 H Lymph # (Auto) 2.5 [place] # (Auto) 1.1 H Eos # (Auto) 0.0 Baso # (Auto) 0.1 WBC Differential Manual diff final Seg Neuts % (Manual) 80 H Band Neuts % (Manual) 5 Lymphocytes % (Manual) 7 L Monocytes % (Manual) 8 Abs Neuts (Manual) 13.7 H Nucleated RBCs/100 WBC 3 H Differential Comment . Platelet Estimate Normal Platelet Morphology Normal Polychromasia 3.1 H [place] Bodies Present H Sickle Cells 1+ H Target Cells 1+ H [place] Bodies Present H Sodium 143 Potassium 5.6 H D Chloride 113 H Carbon Dioxide 24.1 Anion Gap 6 BUN 18 Creatinine 0.91 Estimated GFR Greater than 89 POC Glucose 132 H Random Glucose 103 Uric Acid 10.7 H Calcium 8.6 Total Bilirubin 5.2 H Direct Bilirubin 0.5 H Indirect Bilirubin 4.7 H AST 36 ALT 28 Alkaline Phosphatase 202 H Lactate Dehydrogenase 687 H Troponin I Less than 0.02 L Total Protein 7.6 Albumin 3.3 L MTS Gel Crossmatch 06/08/18 13:10 WBC RBC Hgb Hct MCV MCH MCHC RDW Plt Count MPV Prelim Diff (Auto) Neut % (Auto) Lymph % (Auto) [place] % (Auto) Eos % (Auto) Baso % (Auto) Neut # (Auto) Lymph # (Auto) [place] # (Auto) Eos # (Auto) Baso # (Auto) WBC Differential Seg Neuts % (Manual) Band Neuts % (Manual) Lymphocytes % (Manual) Monocytes % (Manual) Abs Neuts (Manual) Nucleated RBCs/100 WBC Differential Comment Platelet Estimate Platelet Morphology Polychromasia [place] Bodies Sickle Cells Target Cells [place] Bodies Sodium Potassium Chloride Carbon Dioxide Anion Gap BUN Creatinine Estimated GFR POC Glucose 131 H Random Glucose Uric Acid Calcium Total Bilirubin Direct Bilirubin Indirect Bilirubin AST ALT Alkaline Phosphatase Lactate Dehydrogenase Troponin I Total Protein Albumin MTS Gel Crossmatch Culture Results: Microbiology 06/06/18 11:20 Aerobic Blood Culture - Preliminary Blood - Peripheral No growth in 2 days Anaerobic Blood Culture - Preliminary No growth in 2 days 06/06/18 11:20 Aerobic Blood Culture - Preliminary Blood - Peripheral No growth in 2 days Anaerobic Blood Culture - Preliminary No growth in 2 days 06/06/18 10:10 Influenza Types A,B Antigen - Final Nasal Wash Negative for FLU A and B antigen Infection due to influenza A or B cannot be ruled out since the antigen present in the sample may be below the detection limit of the test. Medications: Active Medications Generic Name Dose Route Start Last Admin Trade Name Freq PRN Reason Stop Dose Admin Acetaminophen 650 mg 06/07/18 11:45 06/07/18 12:15 Tylenol PO 650 mg Q4H PRN Administration SEE LABEL COMMENTS Albuterol 1 ampul 06/06/18 07:45 06/08/18 15:41 Duoneb Neb ([facility]) NEB 1 ampul Q6HR NEB [facility] Administration Chlorhexidine Gluconate 3 pack 06/07/18 04:00 06/08/18 03:50 Chlorhexidine 2% Cloth TOPICAL 06/12/18 03:59 Not Given DAILY@0400 [facility] Diphenhydramine HCl 25 mg 06/07/18 11:45 06/07/18 12:14 Benadryl PO 25 mg Q4H PRN Administration SEE LABEL COMMENTS Famotidine 20 mg 06/06/18 09:00 06/08/18 08:17 Pepcid PO 20 mg DAILY [facility] Administration Folic Acid 1 mg 06/06/18 09:00 06/08/18 08:18 Folic Acid PO 1 mg DAILY [facility] Administration Hydromorphone HCl 2 mg 06/07/18 11:55 06/08/18 13:51 Dilaudid Pf Inj IV.PUSH 2 mg Q3H PRN Administration FOR BREAK-THROUGH PAIN 7-10 Sodium Chloride 1,000 mls @ 150 mls/hr 06/06/18 07:30 06/08/18 13:51 Ns Inj IV.CONT 150 mls/hr .Q6H40M [facility] Administration Ceftriaxone Sodium 1,000 mg/ 100 mls @ 200 mls/hr 06/07/18 15:00 06/08/18 14: 23 Sodium Chloride IV.SIG 200 mls/hr Q24H [facility] Administration Insulin Aspart 0 unit 06/06/18 12:00 06/08/18 13:52 Novolog Insulin Correctional Sugar Inj SQ Not Given Q6HR [facility] Protocol Oxycodone HCl 5 mg 06/06/18 07:24 06/07/18 03:49 Roxicodone PO 5 mg Q4H PRN Administration Pain 1 through 5 Oxycodone HCl 10 mg 06/06/18 09:30 06/07/18 17:27 Roxicodone PO 10 mg Q8HR PRN Administration PAIN 6-10 Prednisone 20 mg 06/06/18 09:00 06/08/18 08:18 Deltasone PO 06/11/18 08:59 20 mg BID [facility] Administration Senna/Docusate Sodium 1 tab 06/06/18 09:00 06/08/18 08:17 Latrice-Colace PO 1 tab BID [facility] Administration Sodium Chloride 2 ml 06/06/18 09:00 06/08/18 08:18 Ns Flush IV.FLUSH 2 ml BID [facility] Administration Sodium Chloride 2 ml 06/06/18 07:17 06/07/18 21:19 Ns Flush IV.FLUSH 2 ml PRN PRN Administration FLUSH AFTER USING IV ACCESS Objective Remarks: GENERAL: Well-nourished, well-developed male patient. SKIN: Warm and dry. HEAD: Normocephalic. EYES: Improved scleral icterus noted. No injection or drainage. NECK: Supple, trachea midline. CARDIOVASCULAR: Regular rate and rhythm without murmurs. RESPIRATORY: Posterior breath sounds clear and equal bilaterally. No accessory muscle use. GASTROINTESTINAL: Abdomen soft, non-tender, nondistended. EXTREMITIES: No cyanosis, or edema. MUSCULOSKELETAL: Adequate muscle tone. NEUROLOGICAL: No obvious focal deficit. Awake, alert, and oriented x3. PSYCHIATRIC: Appropriate mood and affect; insight and judgment normal. Assessment/Plan - Plan Mr. Manning is a pleasant 33-year-old male who was admitted to the hospital for sickle cell crisis with fever and back pain times 1 day. No evidence of acute chest syndrome on admission. Plan: 1. Patient denies any reoccurrence of chest pain since yesterday. Cardiac enzymes and EKG negative for acute etiology. 2. Anemia, hemoglobin 9.2 g/dL improved from 6.9 g/dL yesterday after 1 unit of PRBCs. Afebrile. Oxygen saturation 97-100% on 2 L nasal cannula. CBC in a.m. 3. Pain, controlled with current pain medication regimen. 4. Scleral icterus, elevated bilirubin. We will recheck CMP in a.m. 5. Continue supportive measures. - Attending Statement Agree with above, discussed pt. Needs out pt follow up.
[2018-06-09] MEDS: Insulin NovoLOG Aspart Correctional Sugar Inj SQ SCH ×4 (00:04→21:58)
[2018-06-09] MEDS: HYDROmorphone PF Inj 2 MG/ML Vial IV.PUSH PRN ×7 (02:23→21:53)
[2018-06-09] MEDS: Sod Chloride 0.9% Inj 1,000 ML IV.CONT SCH ×2 (02:30→05:20)
[2018-06-09] MEDS: Chlorhexidine Gluconate 2% 1 Pack (2 Cloths) TOPICAL SCH (04:31)
[2018-06-09] MEDS: Folic Acid 1 MG Tablet PO SCH (08:13)
[2018-06-09] MEDS: Famotidine 20 MG Tablet PO SCH (08:13)
[2018-06-09] MEDS: predniSONE 20 MG Tablet PO SCH ×2 (08:14→21:59)
[2018-06-09] MEDS: Senna/Docusate Sodium 8.6/50 MG Tablet PO SCH ×2 (08:14→21:59)
[2018-06-09 09:05] LABS: Baso # (Auto) 0.1 th/mm3 (0.0-0.2); Baso % (Auto) 0.7 % (0.0-2.0); Eos % (Auto) 0.1 % (0.0-4.0); Hematocrit 25.8 % (39.0-51.0); Hemoglobin 8.8 gm/dL (13.0-17.0); Lymph # (Auto) 2.3 th/mm3 (1.0-4.8); Lymph % (Auto) 13.1 % (9.0-44.0); Mean Corpuscular HGB Conc 34.1 % (32.0-36.0); Mean Corpuscular Hemoglobin 29.4 pg (27.0-34.0); Mean Corpuscular Volume 86.4 fL (80.0-100.0); Mean Platelet Volume 8.4 fL (7.0-11.0); Mono # (Auto) 1.4 th/mm3 (0.0-0.9); Mono % (Auto) 8.1 % (0.0-8.0); Neut # (Auto) 13.9 th/mm3 (1.8-7.7); Platelet Count 370 th/mm3 (150-450); Red Blood Count 2.99 mil/mm3 (4.50-5.90); Red Cell Distribution Width 21.2 % (11.6-17.2); White Blood Count 17.8 th/mm3 (4.0-11.0)
[2018-06-09 09:37] LABS: Albumin 3.4 g/dL (3.4-5.0); Anion Gap 8 meq/L (5-15); Aspartate Aminotransferase 21 U/L (15-37); Blood Urea Nitrogen 18 mg/dL (7-18); Calcium 8.8 mg/dL (8.5-10.1); Carbon Dioxide 23.5 meq/L (21.0-32.0); Chloride 112 meq/L (98-107); Glomerular Filtration Rate Greater Than 89 mL/min (>89); Glucose,Random 110 mg/dL (74-106); Potassium 4.8 meq/L (3.5-5.1); Sodium 143 meq/L (136-145)
[2018-06-09 09:39] LABS: Alanine Aminotransferase 24 U/L (12-78)
[2018-06-09 09:41] LABS: Alkaline Phosphatase 181 U/L (45-117); Total Protein 7.2 g/dL (6.4-8.2)
--- NOTE | 2018-06-09 11:15 | P.PNIM ---
Subjective Interval history: The patient says that the Dilaudid has been controlling his pain in the lower back. He says he has an appointment tomorrow with his oncologist. He is requesting to be discharged tomorrow morning. No other acute complaints. Discussed with nursing. Physical Exam Vital signs: Vital Signs 06/08/18 12:00 06/08/18 13:00 06/08/18 15:44 Temperature 98.2 F Pulse Rate 83 68 Respiratory Rate 14 16 Blood Pressure 162/86 H Pulse Oximetry 98 97 06/08/18 16:00 06/08/18 17:46 06/08/18 20:00 Temperature 98.6 F 98.2 F Pulse Rate 95 H 85 Respiratory Rate 14 18 Blood Pressure 142/79 H 132/72 Pulse Oximetry 91 L 91 L 90 L 06/08/18 21:50 06/08/18 22:14 06/09/18 00:03 Temperature Pulse Rate 84 Respiratory Rate 12 18 19 Blood Pressure Pulse Oximetry 94 L 06/09/18 04:00 06/09/18 04:14 06/09/18 05:44 Temperature 98.3 F Pulse Rate 86 69 Respiratory Rate 19 18 18 Blood Pressure 145/80 H Pulse Oximetry 95 06/09/18 09:15 Temperature Pulse Rate 63 Respiratory Rate 16 Blood Pressure Pulse Oximetry 98 Intake & Output 06/08/18 06/09/18 06/09/18 18:59 06:59 18:59 Intake Total 2900 / 2900 1480 / 1480 Output Total 1400 / 1400 1700 / 1700 Balance 1500 / 1500 -220 / -220 Weight 65.4 kg Intake: IV 1100 / 1100 1000 / 1000 NS Inj 1,000 ML @ 125 mls/hr IV 1000 / 1000 1000 / 1000 .CONT .Q8H [facility] Rx#:[id number] Rocephin Inj 1,000 MG In NS Inj 100 / 100 100 ML @ 200 mls/hr IV.SIG Q24H [facility] Rx#:[id number] Oral 450 / 450 480 / 480 Other 1350 / 1350 Output: Urine 1400 / 1400 1700 / 1700 Other: Other Intake Source Saline Solution Date of Last Bowel Movement 06/08/18 # Bowel Movements 0 Narrative: No distress Icteric sclera, mild jaundice, pale conjunctivae RRR, grade 2 systolic murmur appreciated CTAB, no W/R/R Abdomen soft nontender No edema Alert awake and oriented x3, no focal deficits Results Labs CBC & Chem 7: 06/09/18 08:06 06/09/18 08:06 Labs: Microbiology 06/06/18 11:20 Blood - Peripheral Aerobic Blood Culture - Preliminary No growth in 3 days 06/06/18 11:20 Blood - Peripheral Anaerobic Blood Culture - Preliminary No growth in 3 days 06/06/18 11:20 Blood - Peripheral Aerobic Blood Culture - Preliminary No growth in 3 days 06/06/18 11:20 Blood - Peripheral Anaerobic Blood Culture - Preliminary No growth in 3 days Assessment and Plan Plan This is a 33/M presenting with sickle cell crisis. Sickle cell with acute vaso-occlusive crisis-pain improving. S/p IV fluids. -folic acid and pain control. -Hematology following. Has appt 06/10. Anemia-hemoglobin 6.9, transfused 1 unit packed red blood red cells, hematology following. Continue folic acid. Follow-up workup. Recheck CBC. Stable. Hypoxemia Troponin negative, EKG showed sinus rhythm, echocardiogram showed ejection fraction 55%, chest x-ray showed worsening bibasilar densities greater in the left lower lobe. -Empiric ceftriaxone for now. -will titrate down the oxygen to keep O2 sat> 90%. Hyperbilirubinemia-likely secondary to hemolysis, monitor for now. Stable. Hyperuricemia could be from hemolysis. -Placed on prednisone by parts sales advisor. -monitor. Acute renal failure -resolved. Hyperkalemia follow BMP. -GI -famotidine -DVT -Lovenox once hemoglobin is stable. Progress Note: Quality VTE Deep Vein Thrombosis/Pulmonary Embolism Present on Admission: No
--- NOTE | 2018-06-09 14:26 | P.PNONC ---
Subjective Interval history: Patient resting in bed watching television, in no acute distress. Denies any further episodes of chest pain, reports his only pain is in his back. States that he feels like he will be able to go home tomorrow and follow-up outpatient with Dr. Salgado. Denies any bleeding or shortness of breath. Objective Vital Signs/Intake & Output: Vital Signs 06/08/18 15:44 06/08/18 16:00 06/08/18 17:46 Temperature 98.6 F Pulse Rate 68 95 H Respiratory Rate 16 14 Blood Pressure 142/79 H Pulse Oximetry 91 L 91 L 06/08/18 20:00 06/08/18 21:50 06/08/18 22:14 Temperature 98.2 F Pulse Rate 85 84 Respiratory Rate 18 12 18 Blood Pressure 132/72 Pulse Oximetry 90 L 94 L 06/09/18 00:03 06/09/18 04:00 06/09/18 04:14 Temperature 98.3 F Pulse Rate 86 69 Respiratory Rate 19 19 18 Blood Pressure 145/80 H Pulse Oximetry 95 06/09/18 05:44 06/09/18 08:00 06/09/18 09:15 Temperature Pulse Rate 63 Respiratory Rate 18 12 16 Blood Pressure Pulse Oximetry 98 06/09/18 12:00 06/09/18 13:27 Temperature Pulse Rate Respiratory Rate 14 14 Blood Pressure Pulse Oximetry Intake & Output 06/08/18 06/09/18 06/09/18 18:59 06:59 18:59 Intake Total 2900 / 2900 1480 / 1480 Output Total 1400 / 1400 1700 / 1700 Balance 1500 / 1500 -220 / -220 Weight 65.4 kg Intake: IV 1100 / 1100 1000 / 1000 NS Inj 1,000 ML @ 125 mls/hr IV 1000 / 1000 1000 / 1000 .CONT .Q8H [facility] Rx#:[id number] Rocephin Inj 1,000 MG In NS Inj 100 / 100 100 ML @ 200 mls/hr IV.SIG Q24H [facility] Rx#:[id number] Oral 450 / 450 480 / 480 Other 1350 / 1350 Output: Urine 1400 / 1400 1700 / 1700 Other: Other Intake Source Saline Solution Date of Last Bowel Movement 06/08/18 06/08/18 # Bowel Movements 0 Result Diagrams: 06/09/18 08:06 06/09/18 08:06 Laboratory Results: Laboratory Results - last 24 hr 06/08/18 06/08/18 06/08/18 17:16 18:31 23:32 WBC RBC Hgb Hct MCV MCH MCHC RDW Plt Count MPV Neut % (Auto) Lymph % (Auto) [place] % (Auto) Eos % (Auto) Baso % (Auto) Neut # (Auto) Lymph # (Auto) [place] # (Auto) Eos # (Auto) Baso # (Auto) WBC Differential Differential Comment Sodium Potassium 4.8 D Chloride Carbon Dioxide Anion Gap BUN Creatinine Estimated GFR POC Glucose 168 H 120 H Random Glucose Calcium Total Bilirubin AST ALT Alkaline Phosphatase Total Protein Albumin 06/09/18 06/09/18 06/09/18 05:13 08:06 08:06 WBC 17.8 H RBC 2.99 L Hgb 8.8 L Hct 25.8 L MCV 86.4 MCH 29.4 MCHC 34.1 RDW 21.2 H Plt Count 370 MPV 8.4 Neut % (Auto) 78.0 H Lymph % (Auto) 13.1 [place] % (Auto) 8.1 H Eos % (Auto) 0.1 Baso % (Auto) 0.7 Neut # (Auto) 13.9 H Lymph # (Auto) 2.3 [place] # (Auto) 1.4 H Eos # (Auto) 0.0 Baso # (Auto) 0.1 WBC Differential . Differential Comment Auto diff final Sodium 143 Potassium 4.8 Chloride 112 H Carbon Dioxide 23.5 Anion Gap 8 BUN 18 Creatinine 0.84 Estimated GFR Greater than 89 POC Glucose 134 H Random Glucose 110 H Calcium 8.8 Total Bilirubin 5.1 H AST 21 ALT 24 Alkaline Phosphatase 181 H Total Protein 7.2 Albumin 3.4 Culture Results: Microbiology 06/06/18 11:20 Aerobic Blood Culture - Preliminary Blood - Peripheral No growth in 3 days Anaerobic Blood Culture - Preliminary No growth in 3 days 06/06/18 11:20 Aerobic Blood Culture - Preliminary Blood - Peripheral No growth in 3 days Anaerobic Blood Culture - Preliminary No growth in 3 days 06/06/18 10:10 Influenza Types A,B Antigen - Final Nasal Wash Negative for FLU A and B antigen Infection due to influenza A or B cannot be ruled out since the antigen present in the sample may be below the detection limit of the test. Medications: Active Medications Generic Name Dose Route Start Last Admin Trade Name Freq PRN Reason Stop Dose Admin Acetaminophen 650 mg 06/07/18 11:45 06/07/18 12:15 Tylenol PO 650 mg Q4H PRN Administration SEE LABEL COMMENTS Albuterol 1 ampul 06/06/18 07:45 06/09/18 09:13 Duoneb Neb ([facility]) NEB 1 ampul Q6HR NEB [facility] Administration Chlorhexidine Gluconate 3 pack 06/07/18 04:00 06/09/18 04:31 Chlorhexidine 2% Cloth TOPICAL 06/12/18 03:59 Not Given DAILY@0400 [facility] Diphenhydramine HCl 25 mg 06/07/18 11:45 06/07/18 12:14 Benadryl PO 25 mg Q4H PRN Administration SEE LABEL COMMENTS Famotidine 20 mg 06/06/18 09:00 06/09/18 08:13 Pepcid PO 20 mg DAILY [facility] Administration Folic Acid 1 mg 06/06/18 09:00 06/09/18 08:13 Folic Acid PO 1 mg DAILY [facility] Administration Hydromorphone HCl 2 mg 06/07/18 11:55 06/09/18 12:06 Dilaudid Pf Inj IV.PUSH 2 mg Q3H PRN Administration FOR BREAK-THROUGH PAIN 7-10 Ceftriaxone Sodium 1,000 mg/ 100 mls @ 200 mls/hr 06/07/18 15:00 06/08/18 14: 53 Sodium Chloride IV.SIG Infused Q24H [facility] Infusion Insulin Aspart 0 unit 06/06/18 12:00 06/09/18 13:18 Novolog Insulin Correctional Sugar Inj SQ Not Given Q6HR [facility] Protocol Oxycodone HCl 5 mg 06/06/18 07:24 06/07/18 03:49 Roxicodone PO 5 mg Q4H PRN Administration Pain 1 through 5 Oxycodone HCl 10 mg 06/06/18 09:30 06/07/18 17:27 Roxicodone PO 10 mg Q8HR PRN Administration PAIN 6-10 Prednisone 20 mg 06/06/18 09:00 06/09/18 08:14 Deltasone PO 06/11/18 08:59 20 mg BID [facility] Administration Senna/Docusate Sodium 1 tab 06/06/18 09:00 06/09/18 08:14 Latrice-Colace PO 1 tab BID [facility] Administration Sodium Chloride 2 ml 06/06/18 09:00 06/09/18 08:14 Ns Flush IV.FLUSH 2 ml BID [facility] Administration Sodium Chloride 2 ml 06/06/18 07:17 06/07/18 21:19 Ns Flush IV.FLUSH 2 ml PRN PRN Administration FLUSH AFTER USING IV ACCESS Objective Remarks: GENERAL: Well-nourished, well-developed male patient. SKIN: Warm and dry. HEAD: Normocephalic. EYES: Improved scleral icterus noted. No injection or drainage. NECK: Supple, trachea midline. CARDIOVASCULAR: Regular rate and rhythm without murmurs. RESPIRATORY: Posterior breath sounds clear and equal bilaterally. No accessory muscle use. GASTROINTESTINAL: Abdomen soft, non-tender, nondistended. EXTREMITIES: No cyanosis, or edema. MUSCULOSKELETAL: Adequate muscle tone. NEUROLOGICAL: No obvious focal deficit. Awake, alert, and oriented x3. PSYCHIATRIC: Appropriate mood and affect; insight and judgment normal. Assessment/Plan - Plan Mr. Manning is a pleasant 33-year-old male who was admitted to the hospital for sickle cell crisis with fever and back pain times 1 day. No evidence of acute chest syndrome on admission. Plan: 1. Patient denies any reoccurrence of chest pain since 06/07/2018. 2. Anemia, hemoglobin 8.8 g/dL. Afebrile. Patient no longer wearing oxygen, maintaining oxygen saturation. CBC in a.m. 3. Pain, controlled with current pain medication regimen. 4. Scleral icterus improving, bilirubin trending down. BMP has been ordered by attending for tomorrow morning. 5. Patient has follow-up with the outpatient clinic, cleared for discharge from an oncology standpoint. - Attending Statement Agree with above, pt discussed, plan to follow up in clinic tomorrow.
[2018-06-10] MEDS: Insulin NovoLOG Aspart Correctional Sugar Inj SQ SCH ×2 (00:38→06:41)
[2018-06-10] MEDS: HYDROmorphone PF Inj 2 MG/ML Vial IV.PUSH PRN ×4 (00:43→09:41)
[2018-06-10] MEDS: Chlorhexidine Gluconate 2% 1 Pack (2 Cloths) TOPICAL SCH (04:06)
[2018-06-10 06:03] VITALS: BP 137/73; PULSE 70; RESP 17; TEMP 97.6
--- NOTE | 2018-06-10 08:53 | P.DS ---
DS: Providers Date of admission: 06/06/18 06:50 Primary care physician: Lashay Salgado MD Consults: 06/06/18 07:15 Consult to Hospitalist Routine Consulting Provider: Naldo Genao Reason for Consultation: Armstrong of care in a.m. 06/07. Admission with sickle cell crisis acute vaso-occlusive crisis. Followed with Dr. Salgado. Notified:: Service Spoke with:: WILDER Date Notified:: 06/06/18 Time Notified:: 07:25 Comments:: WAITING FOR CALL CENTER TO CALL BACK- Ordering Provider: KAM 06/06/18 07:23 Consult to Hematology Routine Consulting Provider: Aydin Hill Patient known to:: Lashay Salgado Reason for Consultation: Sickle cell disease with acute vaso-occlusive crisis. Patient known to Dr. Salgado. Assistance with management. Notified:: Service Spoke with:: Trudy Date Notified:: 06/06/18 Time Notified:: 08:03 Comments:: no answer, no VM 0753 hrs - ML Ordering Provider: KAM Anticipated date of discharge: 06/10/18 Brief History from admission: This is a 33-year-old male. Date of admission . Past medical history includes sickle cell trait, gout, priapism and chronic anemia. He has a history of priapism when taking hydroxyurea. He is on folic acid at home. He is a patient of Dr. Lashay Salgado. He usually presents with 2-3 sickle cell crisis yearly. He presents to [place] [id number] planning of low back pain, right leg pain and right foot pain R leg pain c/w typical sick cell related pain. At home reported fevers. Denies chest pain, pleuritic chest pain with deep inspiration, abdominal pain. 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 He normally takes allopurinol chronically at home. Workup revealed a leukocytosis, and anemia of 7.2. Elevated total globin of 13.9 and creatinine of 1.7. Patient received 2.5 L of normal saline. Upon ambling patient had saturations of 80%. Chest x-ray showed worsening pulmonary edema likely from the fluid challenge. Hospitalist report from ED physician did not feel comfortable admitting this patient to their service so we were asked to admit. Patient update on day of discharge: The patient was feeling well. He says his appointment is at 2 PM today. He says he will be getting his pain medications there. He is looking forward to being discharged. Discussed with nursing, who recommended an oxygen walk test prior to discharge. DS: Diagnosis Discharge Diagnosis (1) Acute sickle cell crisis: Status: Acute (2) Vaso-occlusive sickle cell crisis: Status: Acute (3) Acute kidney injury: Status: Acute (4) Total bilirubin, elevated: Status: Acute (5) Acute respiratory failure with hypoxia: Status: Acute DS: Summary Sickle cell with acute vaso-occlusive crisis The pt received IV fluids and pain control. He was continued on folic acid. Hematology was consulted. He received one unit of red cells. His hemoglobin remained stable. His pain became more controlled. His bilirubin levels were monitored and continued to improve. He has a follow-up appointment with hematology on 06/10 at 2:00PM. Acute respiratory failure with hypoxemia Troponin negative, EKG showed sinus rhythm, echocardiogram showed ejection fraction 55%, chest x-ray showed worsening bibasilar densities greater in the left lower lobe. He was started on empiric ceftriaxone. He was continued on oxygen and nebs as needed. He had a walk test prior to discharge. He will complete a course of PO Levaquin. Hyperuricemia He has a history of gout. He was started on prednisone and will continue a taper. He will continue allopurinol. Acute renal failure with hyperkalemia Resolved with IVFs. Time Spent with Patient Total time spent providing and/or coordinating discharge services: Greater than 30 minutes Quality: VTE Deep Vein Thrombosis/Pulmonary Embolism Present on Admission: No Exam Narrative Exam Narrative: No distress Icteric sclera, mild jaundice, pale conjunctivae RRR, grade 2 systolic murmur appreciated CTAB, no W/R/R Abdomen soft nontender No edema Alert awake and oriented x3, no focal deficits Results Labs on day of discharge: Labs from last 24 hours 06/10/18 06/10/18 06/09/18 06:37 00:09 18:47 WBC RBC Hgb Hct MCV MCH MCHC RDW Plt Count MPV Neut % (Auto) Lymph % (Auto) [place] % (Auto) Eos % (Auto) Baso % (Auto) Neut # (Auto) Lymph # (Auto) [place] # (Auto) Eos # (Auto) Baso # (Auto) WBC Differential Differential Comment Sodium Potassium Chloride Carbon Dioxide Anion Gap BUN Creatinine Estimated GFR POC Glucose 135 H 147 H 116 H Random Glucose Calcium Total Bilirubin AST ALT Alkaline Phosphatase Total Protein Albumin 06/09/18 06/09/18 06/09/18 14:53 08:06 08:06 WBC 17.8 H RBC 2.99 L Hgb 8.8 L Hct 25.8 L MCV 86.4 MCH 29.4 MCHC 34.1 RDW 21.2 H Plt Count 370 MPV 8.4 Neut % (Auto) 78.0 H Lymph % (Auto) 13.1 [place] % (Auto) 8.1 H Eos % (Auto) 0.1 Baso % (Auto) 0.7 Neut # (Auto) 13.9 H Lymph # (Auto) 2.3 [place] # (Auto) 1.4 H Eos # (Auto) 0.0 Baso # (Auto) 0.1 WBC Differential . Differential Comment Auto diff final Sodium 143 Potassium 4.8 Chloride 112 H Carbon Dioxide 23.5 Anion Gap 8 BUN 18 Creatinine 0.84 Estimated GFR Greater than 89 POC Glucose 111 H Random Glucose 110 H Calcium 8.8 Total Bilirubin 5.1 H AST 21 ALT 24 Alkaline Phosphatase 181 H Total Protein 7.2 Albumin 3.4 Preliminary micro results at discharge 06/06/18 11:20 Aerobic Blood Culture - Preliminary Blood - Peripheral No growth in 3 days Anaerobic Blood Culture - Preliminary No growth in 3 days 06/06/18 11:20 Aerobic Blood Culture - Preliminary Blood - Peripheral No growth in 3 days Anaerobic Blood Culture - Preliminary No growth in 3 days Impressions ITS Impressions Abdomen Ultrasound 06/06/18 00:00 CONCLUSION: 1. Abnormal appearance of left kidney/spleen. Recommend CT scan of the abdomen/ pelvis for further characterization. 2. Small left pleural effusion. 3. Status post cholecystectomy. Chest X-Ray 06/07/18 07:21 CONCLUSION: Cardiomegaly with worsening bibasilar densities greatest in the left lower lobe. Discharge Plan Discharge Disposition Patient Disposition: 01 Discharge Home Discharge Condition Condition: Stable Discharge Order Discharge Orders: Discharge Order (Routine); Ordered 06/10/18 Ordered By: Josh Price Oncology Clear for Discharge (Routine); Ordered 06/09/18 Ordered By: Concepcion Payton Discharge Details Anticipated Discharge Date: 06/10/18 Physicians Team Primary Care Provider: Lashay Salgado Attending Provider: Josh Price Other Providers: Lashay Salgado Rxs /Orders / Referrals /Forms Prescriptions: New levofloxacin [Levaquin] 750 mg tablet 750 mg PO DAILY Qty: 2 RF: 0 prednisone 20 mg tablet 20 mg PO DAILY 3 Days Qty: 3 RF: 0 Continue oxycodone 15 mg Tablet 10 mg PO Q8HR PRN (Reason: Pain) RF: 0 folic acid 400 mcg Tablet 0.4 mg PO DAILY RF: 0 allopurinol 300 mg Tablet 300 mg PO DAILY RF: 0 Referrals: Lashay Salgado MD [Primary Care Provider] - See Instructions (Appt is 06/10 at 2 :00PM) Status ED Status: Left Department
[2018-06-10 09:23] LABS: Baso # (Auto) 0.1 th/mm3 (0.0-0.2); Baso % (Auto) 0.7 % (0.0-2.0); Eos % (Auto) 0.1 % (0.0-4.0); Hematocrit 26.5 % (39.0-51.0); Hemoglobin 9.3 gm/dL (13.0-17.0); Lymph # (Auto) 3.3 th/mm3 (1.0-4.8); Lymph % (Auto) 19.3 % (9.0-44.0); Mean Corpuscular HGB Conc 35.2 % (32.0-36.0); Mean Corpuscular Hemoglobin 29.8 pg (27.0-34.0); Mean Corpuscular Volume 84.8 fL (80.0-100.0); Mean Platelet Volume 8.5 fL (7.0-11.0); Mono % (Auto) 11.7 % (0.0-8.0); Neut # (Auto) 11.7 th/mm3 (1.8-7.7); Neut % (Auto) 68.2 % (16.0-70.0); Platelet Count 358 th/mm3 (150-450); Red Blood Count 3.13 mil/mm3 (4.50-5.90); Red Cell Distribution Width 21.3 % (11.6-17.2); White Blood Count 17.1 th/mm3 (4.0-11.0)
[2018-06-10 09:26] VITALS: O2SAT 91
[2018-06-10] MEDS: Folic Acid 1 MG Tablet PO SCH (09:40)
[2018-06-10] MEDS: Famotidine 20 MG Tablet PO SCH (09:40)
[2018-06-10] MEDS: Senna/Docusate Sodium 8.6/50 MG Tablet PO SCH (09:40)
[2018-06-10] MEDS: predniSONE 20 MG Tablet PO SCH (09:40)
[2018-06-10 09:52] LABS: Albumin 3.4 g/dL (3.4-5.0); Anion Gap 9 meq/L (5-15); Aspartate Aminotransferase 20 U/L (15-37); Blood Urea Nitrogen 16 mg/dL (7-18); Calcium 9.1 mg/dL (8.5-10.1); Carbon Dioxide 25.9 meq/L (21.0-32.0); Chloride 108 meq/L (98-107); Glomerular Filtration Rate Greater Than 89 mL/min (>89); Glucose,Random 108 mg/dL (74-106); Potassium 4.3 meq/L (3.5-5.1); Sodium 143 meq/L (136-145); Uric Acid 9.8 mg/dl (2.6-7.2)
[2018-06-10 09:53] LABS: Alanine Aminotransferase 24 U/L (12-78)
[2018-06-10 09:55] LABS: Alkaline Phosphatase 181 U/L (45-117); Total Protein 7.3 g/dL (6.4-8.2)
--- NOTE | 2018-06-10 10:20 | P.PNONC ---
Subjective Interval history: Patient sitting up in bed watching television, in no acute distress. States that he is eager to go home today and attend his appointment with Dr. Salgado at 2 PM this afternoon. Denies any chest pain, shortness of breath or bleeding. Objective Vital Signs/Intake & Output: Vital Signs 06/09/18 12:00 06/09/18 13:27 06/09/18 16:00 Temperature 98.1 F 98.5 F Pulse Rate 79 65 Respiratory Rate 16 14 12 Blood Pressure 134/82 133/78 Pulse Oximetry 93 L 97 Pulse Oximetry [Exertion on Room Air] Pulse Oximetry [Resting on Room Air] 06/09/18 16:16 06/09/18 20:40 06/09/18 21:40 Temperature 98.6 F Pulse Rate 64 75 67 Respiratory Rate 16 18 14 Blood Pressure 146/75 H Pulse Oximetry 95 98 Pulse Oximetry [Exertion on Room Air] Pulse Oximetry [Resting on Room Air] 06/10/18 00:00 06/10/18 03:47 06/10/18 04:10 Temperature 96.6 F L 97.6 F Pulse Rate 72 57 L 70 Respiratory Rate 18 16 17 Blood Pressure 152/85 H 137/73 Pulse Oximetry 92 L 96 Pulse Oximetry [Exertion on Room Air] Pulse Oximetry [Resting on Room Air] 06/10/18 09:24 06/10/18 09:25 Temperature Pulse Rate Respiratory Rate Blood Pressure Pulse Oximetry 91 L Pulse Oximetry [Exertion on Room Air] 91 L Pulse Oximetry [Resting on Room Air] 95 Intake & Output 06/09/18 06/10/18 06/10/18 18:59 06:59 18:59 Intake Total 1150 / 1150 100 / 100 Output Total 1400 / 1400 Balance -250 / -250 100 / 100 Weight 64.7 kg Intake: IV 100 / 100 Rocephin Inj 1,000 MG In NS Inj 100 / 100 100 ML @ 200 mls/hr IV.SIG Q24H EMILIANO Rx#:[id number] Oral 700 / 700 Other 450 / 450 Output: Urine 1400 / 1400 Other: Other Intake Source Saline Solution # Voids 5 Date of Last Bowel Movement 06/08/18 06/08/18 Result Diagrams: 06/10/18 08:16 06/10/18 08:16 Laboratory Results: Laboratory Results - last 24 hr 06/09/18 06/09/18 06/10/18 14:53 18:47 00:09 WBC RBC Hgb Hct MCV MCH MCHC RDW Plt Count MPV Neut % (Auto) Lymph % (Auto) [place] % (Auto) Eos % (Auto) Baso % (Auto) Neut # (Auto) Lymph # (Auto) [place] # (Auto) Eos # (Auto) Baso # (Auto) WBC Differential Differential Comment Sodium Potassium Chloride Carbon Dioxide Anion Gap BUN Creatinine Estimated GFR POC Glucose 111 H 116 H 147 H Random Glucose Uric Acid Calcium Total Bilirubin Direct Bilirubin Indirect Bilirubin AST ALT Alkaline Phosphatase Total Protein Albumin 06/10/18 06/10/18 06/10/18 06:37 08:16 08:16 WBC 17.1 H RBC 3.13 L Hgb 9.3 L Hct 26.5 L MCV 84.8 MCH 29.8 MCHC 35.2 RDW 21.3 H Plt Count 358 MPV 8.5 Neut % (Auto) 68.2 Lymph % (Auto) 19.3 [place] % (Auto) 11.7 H Eos % (Auto) 0.1 Baso % (Auto) 0.7 Neut # (Auto) 11.7 H Lymph # (Auto) 3.3 [place] # (Auto) 2.0 H Eos # (Auto) 0.0 Baso # (Auto) 0.1 WBC Differential . Differential Comment Auto diff final Sodium 143 Potassium 4.3 Chloride 108 H Carbon Dioxide 25.9 Anion Gap 9 BUN 16 Creatinine 0.85 Estimated GFR Greater than 89 POC Glucose 135 H Random Glucose 108 H Uric Acid 9.8 H Calcium 9.1 Total Bilirubin 5.8 H Direct Bilirubin 0.4 H Indirect Bilirubin 5.4 H AST 20 ALT 24 Alkaline Phosphatase 181 H Total Protein 7.3 Albumin 3.4 Culture Results: Microbiology 06/06/18 11:20 Aerobic Blood Culture - Preliminary Blood - Peripheral No growth in 3 days Anaerobic Blood Culture - Preliminary No growth in 3 days 06/06/18 11:20 Aerobic Blood Culture - Preliminary Blood - Peripheral No growth in 3 days Anaerobic Blood Culture - Preliminary No growth in 3 days Medications: Active Medications Generic Name Dose Route Start Last Admin Trade Name Freq PRN Reason Stop Dose Admin Acetaminophen 650 mg 06/07/18 11:45 06/07/18 12:15 Tylenol PO 650 mg Q4H PRN Administration SEE LABEL COMMENTS Chlorhexidine Gluconate 3 pack 06/07/18 04:00 06/10/18 04:06 Chlorhexidine 2% Cloth TOPICAL 06/12/18 03:59 Not Given DAILY@0400 [facility] Diphenhydramine HCl 25 mg 06/07/18 11:45 06/07/18 12:14 Benadryl PO 25 mg Q4H PRN Administration SEE LABEL COMMENTS Famotidine 20 mg 06/06/18 09:00 06/10/18 09:40 Pepcid PO 20 mg DAILY [facility] Administration Folic Acid 1 mg 06/06/18 09:00 06/10/18 09:40 Folic Acid PO 1 mg DAILY [facility] Administration Hydromorphone HCl 2 mg 06/07/18 11:55 06/10/18 09:41 Dilaudid Pf Inj IV.PUSH 2 mg Q3H PRN Administration FOR BREAK-THROUGH PAIN 7-10 Ceftriaxone Sodium 1,000 mg/ 100 mls @ 200 mls/hr 06/07/18 15:00 06/10/18 04: 07 Sodium Chloride IV.SIG Infused Q24H [facility] Infusion Insulin Aspart 0 unit 06/06/18 12:00 06/10/18 06:41 Novolog Insulin Correctional Sugar Inj SQ Not Given Q6HR [facility] Protocol Oxycodone HCl 5 mg 06/06/18 07:24 06/07/18 03:49 Roxicodone PO 5 mg Q4H PRN Administration Pain 1 through 5 Oxycodone HCl 10 mg 06/06/18 09:30 06/07/18 17:27 Roxicodone PO 10 mg Q8HR PRN Administration PAIN 6-10 Prednisone 20 mg 06/06/18 09:00 06/10/18 09:40 Deltasone PO 06/11/18 08:59 20 mg BID [facility] Administration Senna/Docusate Sodium 1 tab 06/06/18 09:00 06/10/18 09:40 Latrice-Colace PO 1 tab BID [facility] Administration Sodium Chloride 2 ml 06/06/18 09:00 06/10/18 09:42 Ns Flush IV.FLUSH Not Given BID [facility] Sodium Chloride 2 ml 06/06/18 07:17 06/07/18 21:19 Ns Flush IV.FLUSH 2 ml PRN PRN Administration FLUSH AFTER USING IV ACCESS Objective Remarks: GENERAL: Well-nourished, well-developed male patient. SKIN: Warm and dry. HEAD: Normocephalic. EYES: Scleral icterus noted. No injection or drainage. NECK: Supple, trachea midline. CARDIOVASCULAR: Regular rate and rhythm without murmurs. RESPIRATORY: Posterior breath sounds clear and equal bilaterally. No accessory muscle use. GASTROINTESTINAL: Abdomen soft, non-tender, nondistended. EXTREMITIES: No cyanosis, or edema. MUSCULOSKELETAL: Adequate muscle tone. NEUROLOGICAL: No obvious focal deficit. Awake, alert, and oriented x3. PSYCHIATRIC: Appropriate mood and affect; insight and judgment normal. Assessment/Plan - Plan Mr. Manning is a pleasant 33-year-old male who was admitted to the hospital for sickle cell crisis with fever and back pain times 1 day. No evidence of acute chest syndrome on admission. Plan: 1. Patient denies any reoccurrence of chest pain since 06/07/2018. 2. Anemia, hemoglobin 9.3 g/dL, improved from 8.8 g/dL yesterday. Afebrile. 3. Pain, patient with appointment at 2 PM [address] Dr. Salgado and will get prescriptions for pain medications at that time. 4. Scleral icterus, bilirubin 5.8. 5. Follow-up outpatient with Dr. Salgado.
== END 2018-06-10 11:00 | disposition home or self-care (01) | DRG 811 ==
LOC: NEPE 03:03 → NEDA 06:50 → HIMC 08:30 → H7ONC 18:40
PROVIDERS: ADMIT Hospitalist; ATTEND Hospitalist
DX: R07.9 Chest pain, unspecified; N17.9 Acute kidney failure, unspecified; E87.5 Hyperkalemia; N48.30 Priapism, unspecified; R50.81 Fever presenting with conditions classified elsewhere; Z83.2 Family history of diseases of the blood and blood-forming organs and certain disorders involving the immune mechanism; D72.829 Elevated white blood cell count, unspecified; M79.671 Pain in right foot; Z90.49 Acquired absence of other specified parts of digestive tract; Z79.899 Other long term (current) drug therapy; I51.7 Cardiomegaly; M79.604 Pain in right leg; M54.5 Low back pain; G89.29 Other chronic pain; J96.01 Acute respiratory failure with hypoxia; M79.672 Pain in left foot; M10.9 Gout, unspecified; D57.00 Hb-SS disease with crisis, unspecified; J81.1 Chronic pulmonary edema; R01.1 Cardiac murmur, unspecified; R00.0 Tachycardia, unspecified
CPT/HCPCS: 36430; 36600; 71010; 71045; 76700; 76937; 80048; 80053; 80074; 80076; 81001; 82247; 82248; 82550; 82570; 82805; 82948; 82962; 83605; 83615; 83735; 84100; 84132; 84484; 84550; 85025; 85044; 85610; 85730; 86902; 87040; 87205; 87275; 87276; 87641; 87804; 90761; 90774; 90775; 90776; 90784; 93005; 93308; 94618; 94620; 94640; 94664; 94665; 96361; 96374; 96375; 96376; 97162; 97530; 99291; C8952; J0696; J1170; J1200; J2405; J7030; J7050; J7506; J7512; P9016